=== PATIENT | male | born 1950 | race Caucasian/White ===

== ENCOUNTER 2016-11-20 10:45 | Day surgery (SDC) | payer MEDICARE, OTHER ==
[2016-11-18 13:25] VITALS: BMI 42.0
--- NOTE | 2016-11-20 08:06 | P.GSHP ---
History of Present Illness H&P Date: 11/20/16 CHIEF COMPLAINT: Colon screen HISTORY OF PRESENT ILLNESS: The patient is a 66-year-old male who presents for colon screen. Lower endoscopy was offered for further evaluation and management. PAST MEDICAL HISTORY: Please see list. PAST SURGICAL HISTORY: Please see list. MEDICATIONS: Please see list. ALLERGIES: Please see list. SOCIAL HISTORY: No illicit drug use FAMILY HISTORY: No reports of Crohn disease or ulcerative colitis. REVIEW OF ORGAN SYSTEMS: CONSTITUTIONAL: No reports of fevers or chills. PHYSICAL EXAM: VITAL SIGNS: Stable GENERAL: Well-developed pleasant in no acute distress. HEENT: No scleral icterus. Extraocular movements grossly intact. Moist buccal mucosa. NECK: Supple without lymphadenopathy. CHEST: Unlabored respirations. Equal bilateral excursions. CARDIOVASCULAR: Regular rate and rhythm. Distal 2+ pulses. ABDOMEN: Soft, nontender, nondistended. MUSCULOSKELETAL: No clubbing, cyanosis, or edema. ASSESSMENT: 1. Colon screen. PLAN: 1. Recommend proceeding with a lower endoscopy Past Medical History Past Medical History: Atrial Fibrillation, Heart Failure, COPD, GERD/Reflux, Hyperlipidemia, Hypertension, Respiratory Disorder Additional Past Medical History / Comment(s): , back pain History of Any Multi-Drug Resistant Organisms: None Reported Past Surgical History: AICD, Heart Catheterization Additional Past Surgical History / Comment(s): AICD/DEFIBILLATOR. PAIN CLINIC PROCEDURES Past Anesthesia/Blood Transfusion Reactions: No Reported Reaction Type of Cardiac Device: AICD Device Placement Date:: 06/17/2006 Past Psychological History: No Psychological Hx Reported Smoking Status: Current every day smoker Past Alcohol Use History: None Reported Additional Past Alcohol Use History / Comment(s): SMOKES 1 PPD SINCE AGE 16 Past Drug Use History: None Reported - Past Family History Mother Family Medical History: Unable to Obtain Father Family Medical History: CVA/TIA Medications and Allergies Home Medications Medication Instructions Recorded Confirmed Type Carvedilol [Coreg] 25 mg PO BID 11/02/13 11/18/16 History Digoxin [Lanoxin] 125 mcg PO DAILY 11/02/13 11/18/16 History Enalapril [Vasotec] 20 mg PO BID 11/02/13 11/18/16 History Furosemide [Lasix] 40 mg PO BID 11/02/13 11/18/16 History Ranitidine HCl [Zantac] 150 mg PO BID 11/02/13 11/18/16 History Simvastatin [Zocor] 40 mg PO HS 11/02/13 11/18/16 History Warfarin Sodium [Coumadin] 6 mg PO SUMOWETHSA 11/02/13 11/18/16 History amLODIPine [Norvasc] 10 mg PO DAILY 03/15/14 11/18/16 History Warfarin Sodium [Coumadin] 3 mg PO TUFR 07/15/14 11/18/16 History Allergies Allergy/AdvReac Type Severity Reaction Status Date / Time No Known Allergies Allergy Verified 11/18/16 13:15
[~2016-11-20 10:45] MED LIST: LACTATED RINGERS 1,000 ML IV SCH
[2016-11-20 12:06] VITALS: TEMP 98.7
[2016-11-20] MEDS ORDERED: LIDOCAINE 1% 20 ML VIAL (10MG/ML) FOR IV START INTRADERMA ONE (12:06)
[2016-11-20] MEDS ORDERED: LIDOCAINE 1% INJ 10MG/ML (20 ML MDV) ONE (14:04)
[2016-11-20] MEDS ORDERED: MIDAZOLAM 2 MG/2 ML VIAL ONE (14:04)
[2016-11-20] MEDS ORDERED: PROPOFOL 10 MG/ML 20 ML VIAL IV ONE (14:04)
[2016-11-20 15:08] VITALS: BP 147/87; PULSE 72; RESP 18
--- NOTE | 2016-11-20 19:01 | P.PCN ---
Date of Procedure: 11/20/16 Preoperative Diagnosis: Postoperative Diagnosis: Procedure(s) Performed: Implants: Indications for Procedure: Operative Findings: Description of Procedure: PREOPERATIVE DIAGNOSIS: 1. Colonoscopy screening. 2. Personal history of colon polyps. 3. Family history of colon polyps. 4. Morbid obesity due to excess calories. 5. Hypertensive heart disease with heart failure. 6. Body mass index 42.1. 7. Atrial fibrillation. 8. COPD. 9. Hyperlipidemia. POSTOPERATIVE DIAGNOSIS: 1. Colonoscopy screening. 2. Personal history of colon polyps. 3. Family history of colon polyps. 4. Morbid obesity due to excess calories. 5. Hypertensive heart disease with heart failure. 6. Body mass index 42.1. 7. Atrial fibrillation. 8. COPD. 9. Hyperlipidemia. 10. Diverticulosis, scattered. OPERATION: 1. Colonoscopy to the ileocecal valve and appendiceal orifice. 2. Colonoscopy with cold forceps biopsies along the ileocecal valve, transverse , and, sigmoid colon. SURGEON: Monserrat Espinosa MD. ANESTHESIA: MAC. INDICATIONS: The patient is a 66-year-old male who presents for colonoscopy screening. His last colonoscopy was over 5 years ago. Benefits and risks were described and informed consent was obtained. DESCRIPTION OF PROCEDURE: The patient had undergone Gatorade, MiraLAX and Dulcolax prep. He had been brought into the operating room and laid in the left lateral decubitus position. After adequate intravenous sedation, the rectum was examined with 2% lidocaine jelly. No external hemorrhoids were encountered. The rectal tone was within normal limits. The prostate was smooth and without abnormality. No lesions were palpated in the rectal vault. An Olympus colonoscope was advanced until the ileocecal valve and appendiceal orifice were clearly viewed. The prep was good with visualization of the mucosal folds. The scope was removed with visualization of each mucosal fold. Scattered diverticulosis was encountered. At the ileocecal valve, a 3 mm hyperplastic polyp was cold forceps biopsy to completion. At 90 cm from the anal verge of the transverse colon, a 4 mm polyp was cold forceps biopsy. Another polyp was identified 60 cm from the anal verge of 4-mm villous type cold forceps biopsy. At 20 cm from the anal verge, a 3 mm adenoma was cold forceps biopsied. No evidence of focal colitis was found. The colon was desufflated. The patient had tolerated the procedure well. Withdrawal time was over 6 minutes. FINDINGS: Internal hemorrhoids, grade 1 No external prolapsed hemorrhoids. No arteriovenous malformations. Scattered diverticulosis was encountered. Total of 4 polyps: -At the ileocecal valve, a 3 mm hyperplastic polyp was cold forceps biopsy to completion. -At 90 cm from the anal verge of the transverse colon, a 4 mm polyp was cold forceps biopsy. -Another polyp was identified 60 cm from the anal verge of 4-mm villous type cold forceps biopsy. -At 20 cm from the anal verge, a 3 mm adenoma was cold forceps biopsied. No focal colitis. RECOMMENDATIONS: Lower endoscopy in 3 years with personal history of colon polyps, year 2019. Plan - Discharge Summary Discharge Medication List Carvedilol [Coreg] 25 mg PO BID 11/02/13 [History] Digoxin [Lanoxin] 125 mcg PO DAILY 11/02/13 [History] Enalapril [Vasotec] 20 mg PO BID 11/02/13 [History] Furosemide [Lasix] 40 mg PO BID 11/02/13 [History] Ranitidine HCl [Zantac] 150 mg PO BID 11/02/13 [History] Simvastatin [Zocor] 40 mg PO HS 11/02/13 [History] Warfarin Sodium [Coumadin] 6 mg PO SUMOWETHSA 11/02/13 [History] amLODIPine [Norvasc] 10 mg PO DAILY 03/15/14 [History] Warfarin Sodium [Coumadin] 3 mg PO TUFR 07/15/14 [History] Follow up Appointment(s)/Referral(s): Monserrat Espinosa MD [STAFF PHYSICIAN] - 12/01/16 Patient Instructions/Handouts: *[facility] - (Anesthesia) Endoscopy Discharge Instructions, *[facility] - (Anesthesia) Discharge Instructions Outpatient Surgery, Colonoscopy (DC), Diverticulosis (DC), Diverticulosis (GEN), Colorectal Polyps (DC), Diverticulosis Diet (GEN) Activity/Diet/Wound Care/Special Instructions: REST TODAY , NO DRIVING TODAY.. RESUME HOME MEDS. Discharge Disposition: HOME SELF-CARE
== END 2016-11-20 15:31 | disposition home or self-care (01) ==
LOC: ORWHC2ENDO 10:45
PROVIDERS: ATTEND Surgery Plastic and Reconstructive Surgery
DX: Z12.11 Encounter for screening for malignant neoplasm of colon (principal); D12.3 Benign neoplasm of transverse colon; D12.6 Benign neoplasm of colon, unspecified; K57.30 Diverticulosis of large intestine without perforation or abscess without bleeding; Z86.010 Personal history of colon polyps; Z83.71 Family history of colonic polyps; F17.210 Nicotine dependence, cigarettes, uncomplicated; E66.01 Morbid (severe) obesity due to excess calories; Z68.41 Body mass index [BMI] 40.0-44.9, adult; K64.0 First degree hemorrhoids; I48.91 Unspecified atrial fibrillation; Z79.01 Long term (current) use of anticoagulants; J44.9 Chronic obstructive pulmonary disease, unspecified; K21.9 Gastro-esophageal reflux disease without esophagitis; E78.5 Hyperlipidemia, unspecified; I11.0 Hypertensive heart disease with heart failure; Z79.899 Other long term (current) drug therapy
CPT/HCPCS: 88305; 45380; J2250; J2001; J2704

== ENCOUNTER → 2017-10-22 | Outpatient (CLI) | payer MEDICARE, OTHER ==
--- NOTE | 2017-10-22 15:11 | US ---
EXAMINATION TYPE: US groin LT DATE OF EXAM: 10/22/2017 COMPARISON: CT renal stones May 20, 2015 CLINICAL HISTORY: K40.90 Unilateral Inguinal Hernia. Patient states lt groin pain when he coughs. Scanned left groin , area pointed out by patient, with and without valsalva. No evidence for hernia. Multiple nodes noted, largest measures 1.4 x 1.1 cm. Technologist maldonado benign-appearing lymph nodes left groin. No worrisome solid or cystic mass or flui d collection is seen. No suspicious hernia is evident on images saved. IMPRESSION: As above.
== END | disposition home or self-care (01) ==
LOC: RADUSWWP 14:23
PROVIDERS: ATTEND Family Medicine
DX: K40.90 Unilateral inguinal hernia, without obstruction or gangrene, not specified as recurrent (principal)

== ENCOUNTER → 2017-12-03 | Outpatient (CLI) | payer MEDICARE, OTHER ==
--- NOTE | 2017-12-03 12:35 | US ---
EXAMINATION TYPE: US scrotum with doppler. Grayscale and color Doppler Duplex imaging performed of t he scrotum. DATE OF EXAM: 12/03/2017 COMPARISON: NONE CLINICAL HISTORY: K40.90 Unilateral inguinal hernia. EXAM MEASUREMENTS: TESTICLES: Right Testicle: 3.5 x 2.1 x 2.8 cm Left Testicle: 3.5 x 2.1 x 2.3 cm EPIDIDYMIS HEAD: Right Epididymis: 0.7 cm Left Epididymis: 1.1 cm Doppler performed to assess for testicular vascularity; good bilateral color flow and waveforms are s een. There is no evidence of testicular torsion. Presence of hydroceles: Bilaterally Presence of varicoceles: No Cyst visualized right epididymis measuring 0.5 x 0.4 x 0.4 cm. Bilateral probable microlithiases visu alized. Echogenic area visualized lower left testicle measuring 0.2 x 0.3 x 0.2 cm IMPRESSION: 1. No sonographic evidence of inguinal hernia. 2. Bilateral microlithiasis. Additional subcentimeter hyperechoic focus within the left testicle may represent an additional focus of nonshadowing microlithiasis. This appears separate from the rete dwight dwight. Overall this is favored to be benign however follow-up exam could be performed in 6 months to en sure no interval growth.
== END | disposition home or self-care (01) ==
LOC: RADUSWWP 11:17
PROVIDERS: ATTEND Family Medicine
DX: N50.89 Other specified disorders of the male genital organs (principal)
CPT/HCPCS: 76870; 93975

== ENCOUNTER 2017-12-14 05:26 | Emergency (ER) | payer MEDICARE, OTHER ==
[2017-12-14 05:41] VITALS: TEMP 98.7
[2017-12-14] MEDS ORDERED: NITROGLYCERIN OINT 1 INCH/GM PACKET TOPICAL STA (06:12)
[2017-12-14] MEDS ORDERED: ASPIRIN 81 MG PO STA (06:12)
[2017-12-14] MEDS ORDERED: NITROGLYCERIN SL TABS 0.4 MG TAB SUBLINGUAL STA (06:12)
[2017-12-14 06:17] LABS: Basophils % (A) 0 %; Eosinophils # (A) 0.2 k/uL (0-0.7); Eosinophils % (A) 2 %; HCT 49.3 % (39.0-53.0); Lymphocytes # (A) 2.2 k/uL (1.0-4.8); Lymphocytes % (A) 28 %; MCH 29.9 pg (25.0-35.0); MCHC 32.5 g/dL (31.0-37.0); MCV 92.1 fL (80.0-100.0); Monocytes # (A) 0.7 k/uL (0-1.0); Monocytes % (A) 9 %; Neutrophils # (A) 4.7 k/uL (1.3-7.7); Neutrophils % (A) 60 %; Platelet Count 167 k/uL (150-450); RBC 5.35 m/uL (4.30-5.90); RDW 13.9 % (11.5-15.5); WBC 7.9 k/uL (3.8-10.6)
--- NOTE | 2017-12-14 06:17 | ED ---
SOB HPI - General Chief Complaint: Shortness of Breath Stated Complaint: Leg and feet swelling Time Seen by Provider: 12/14/17 06:12 Source: patient Mode of arrival: wheelchair Limitations: physical limitation (The patient is a poor historian) - History of Present Illness Initial Comments: This patient is 67-year-old man presenting to be evaluated for shortness of breath and bilateral leg edema that appears to be coming on and getting worse over the past 3 days. Patient is a relatively poor historian, not been able to give details of his history or medications. He is denying chest pain. MD Complaint: shortness of breath Onset/Timin -: days(s) Consistency: constant Improves With: nothing Worsens With: exertion - Related Data Home Medications Medication Instructions Recorded Confirmed Carvedilol [Coreg] 25 mg PO BID 11/02/13 11/20/16 Digoxin [Lanoxin] 125 mcg PO DAILY 11/02/13 11/20/16 Enalapril [Vasotec] 20 mg PO BID 11/02/13 11/20/16 Furosemide [Lasix] 40 mg PO BID 11/02/13 11/20/16 Ranitidine HCl [Zantac] 150 mg PO BID 11/02/13 11/20/16 Simvastatin [Zocor] 40 mg PO HS 11/02/13 11/20/16 Warfarin Sodium [Coumadin] 6 mg PO SUMOWETHSA 11/02/13 11/20/16 amLODIPine [Norvasc] 10 mg PO DAILY 03/15/14 11/20/16 Warfarin Sodium [Coumadin] 3 mg PO TUFR 07/15/14 11/20/16 Allergies Allergy/AdvReac Type Severity Reaction Status Date / Time No Known Allergies Allergy Verified 12/14/17 05:41 Review of Systems ROS Statement: Those systems with pertinent positive or pertinent negative responses have been documented in the HPI. ROS Other: All systems not noted in ROS Statement are negative. Limitations: ROS unobtainable due to patients medical condition (Poor historian) Constitutional: Denies: fever, chills Respiratory: Reports: cough, dyspnea. Denies: hemoptysis Cardiovascular: Reports: dyspnea on exertion, orthopnea, edema. Denies: chest pain, palpitations, syncope Gastrointestinal: Denies: abdominal pain, nausea, vomiting, diarrhea Genitourinary: Denies: dysuria Musculoskeletal: Denies: back pain Skin: Denies: rash Neurological: Denies: headache Past Medical History Past Medical History: Atrial Fibrillation, Heart Failure, COPD, GERD/Reflux, Hyperlipidemia, Hypertension, Respiratory Disorder Additional Past Medical History / Comment(s): , back pain History of Any Multi-Drug Resistant Organisms: None Reported Past Surgical History: AICD, Heart Catheterization Additional Past Surgical History / Comment(s): AICD/DEFIBILLATOR. PAIN CLINIC PROCEDURES Past Anesthesia/Blood Transfusion Reactions: No Reported Reaction Type of Cardiac Device: AICD Device Placement Date:: 06/17/2006 Past Psychological History: No Psychological Hx Reported Smoking Status: Current every day smoker Past Alcohol Use History: None Reported Past Drug Use History: None Reported - Past Family History Mother Family Medical History: Unable to Obtain Father Family Medical History: CVA/TIA General Exam Limitations: no limitations General appearance: alert, in distress, obese Head exam: Present: atraumatic, normocephalic Eye exam: Present: normal appearance. Absent: scleral icterus, conjunctival injection ENT exam: Present: normal oropharynx Neck exam: Present: normal inspection Respiratory exam: Present: respiratory distress (Mild tachypnea), rales ( Bilateral bases). Absent: wheezes, rhonchi, stridor, accessory muscle use, decreased breath sounds, prolonged expiratory Cardiovascular Exam: Present: regular rate, normal rhythm, normal heart sounds. Absent: systolic murmur, diastolic murmur, rubs, gallop GI/Abdominal exam: Present: soft. Absent: distended, tenderness, guarding, rebound Extremities exam: Present: normal inspection, normal capillary refill, pedal edema (Bilateral pitting edema to above the ankles). Absent: calf tenderness Back exam: Present: normal inspection. Absent: CVA tenderness (R), CVA tenderness (L) Neurological exam: Present: alert Skin exam: Present: warm, dry, intact, normal color. Absent: rash Course Vital Signs 12/14/17 12/14/17 12/14/17 05:39 05:41 06:21 Temperature 98.7 F Pulse Rate 79 70 Respiratory 18 18 18 Rate Blood Pressure 231/106 196/95 O2 Sat by Pulse 92 L 95 Oximetry 12/14/17 12/14/17 12/14/17 06:44 07:28 07:36 Temperature Pulse Rate 67 72 70 Respiratory 18 20 Rate Blood Pressure 190/96 168/90 O2 Sat by Pulse 97 98 Oximetry 12/14/17 07:37 Temperature Pulse Rate 68 Respiratory Rate Blood Pressure O2 Sat by Pulse Oximetry Medical Decision Making - Lab Data Result diagrams: 12/14/17 05:58 12/14/17 05:58 Lab Results 12/14/17 12/14/17 12/14/17 Range/Units 05:58 05:58 05:58 WBC 7.9 (3.8-10.6) k/uL RBC 5.35 (4.30-5.90) m/uL Hgb 16.0 (13.0-17.5) gm/dL Hct 49.3 (39.0-53.0) % MCV 92.1 (80.0-100.0) fL MCH 29.9 (25.0-35.0) pg MCHC 32.5 (31.0-37.0) g/dL RDW 13.9 (11.5-15.5) % Plt Count 167 (150-450) k/uL Neutrophils % 60 % Lymphocytes % 28 % Monocytes % 9 % Eosinophils % 2 % Basophils % 0 % Neutrophils # 4.7 (1.3-7.7) k/uL Lymphocytes # 2.2 (1.0-4.8) k/uL Monocytes # 0.7 (0-1.0) k/uL Eosinophils # 0.2 (0-0.7) k/uL Basophils # 0.0 (0-0.2) k/uL PT (9.0-12.0) sec INR (<1.2) APTT (22.0-30.0) sec D-Dimer (<0.60) mg/L FEU Sodium 146 H (137-145) mmol/L Potassium 4.2 (3.5-5.1) mmol/L Chloride 105 (98-107) mmol/L Carbon Dioxide 32 H (22-30) mmol/L Anion Gap 9 mmol/L BUN 13 (9-20) mg/dL Creatinine 0.71 (0.66-1.25) mg/dL Est GFR (CKD-EPI)AfAm >90 (>60 ml/min/1.73 sqM) Est GFR (CKD-EPI)NonAf >90 (>60 ml/min/1.73 sqM) Glucose 130 H (74-99) mg/dL Calcium 8.9 (8.4-10.2) mg/dL Total Bilirubin 0.7 (0.2-1.3) mg/dL AST 50 (17-59) U/L ALT 21 (21-72) U/L Alkaline Phosphatase 73 (38-126) U/L Total Creatine Kinase 55 (55-170) U/L CK-MB (CK-2) 0.5 (0.0-2.4) ng/mL CK-MB (CK-2) Rel Index 0.9 Troponin I 0.015 (0.000-0.034) ng/mL NT-Pro-B Natriuret Pep pg/mL Total Protein 6.4 (6.3-8.2) g/dL Albumin 3.8 (3.5-5.0) g/dL Digoxin ng/mL 12/14/17 12/14/17 12/14/17 Range/Units 05:58 05:58 05:58 WBC (3.8-10.6) k/uL RBC (4.30-5.90) m/uL Hgb (13.0-17.5) gm/dL Hct (39.0-53.0) % MCV (80.0-100.0) fL MCH (25.0-35.0) pg MCHC (31.0-37.0) g/dL RDW (11.5-15.5) % Plt Count (150-450) k/uL Neutrophils % % Lymphocytes % % Monocytes % % Eosinophils % % Basophils % % Neutrophils # (1.3-7.7) k/uL Lymphocytes # (1.0-4.8) k/uL Monocytes # (0-1.0) k/uL Eosinophils # (0-0.7) k/uL Basophils # (0-0.2) k/uL PT 20.7 H (9.0-12.0) sec INR 2.3 H (<1.2) APTT 28.2 (22.0-30.0) sec D-Dimer (<0.60) mg/L FEU Sodium (137-145) mmol/L Potassium (3.5-5.1) mmol/L Chloride (98-107) mmol/L Carbon Dioxide (22-30) mmol/L Anion Gap mmol/L BUN (9-20) mg/dL Creatinine (0.66-1.25) mg/dL Est GFR (CKD-EPI)AfAm (>60 ml/min/1.73 sqM) Est GFR (CKD-EPI)NonAf (>60 ml/min/1.73 sqM) Glucose (74-99) mg/dL Calcium (8.4-10.2) mg/dL Total Bilirubin (0.2-1.3) mg/dL AST (17-59) U/L ALT (21-72) U/L Alkaline Phosphatase (38-126) U/L Total Creatine Kinase (55-170) U/L CK-MB (CK-2) (0.0-2.4) ng/mL CK-MB (CK-2) Rel Index Troponin I (0.000-0.034) ng/mL NT-Pro-B Natriuret Pep 500 pg/mL Total Protein (6.3-8.2) g/dL Albumin (3.5-5.0) g/dL Digoxin <0.4 ng/mL 12/14/17 Range/Units 05:58 WBC (3.8-10.6) k/uL RBC (4.30-5.90) m/uL Hgb (13.0-17.5) gm/dL Hct (39.0-53.0) % MCV (80.0-100.0) fL MCH (25.0-35.0) pg MCHC (31.0-37.0) g/dL RDW (11.5-15.5) % Plt Count (150-450) k/uL Neutrophils % % Lymphocytes % % Monocytes % % Eosinophils % % Basophils % % Neutrophils # (1.3-7.7) k/uL Lymphocytes # (1.0-4.8) k/uL Monocytes # (0-1.0) k/uL Eosinophils # (0-0.7) k/uL Basophils # (0-0.2) k/uL PT (9.0-12.0) sec INR (<1.2) APTT (22.0-30.0) sec D-Dimer 0.24 (<0.60) mg/L FEU Sodium (137-145) mmol/L Potassium (3.5-5.1) mmol/L Chloride (98-107) mmol/L Carbon Dioxide (22-30) mmol/L Anion Gap mmol/L BUN (9-20) mg/dL Creatinine (0.66-1.25) mg/dL Est GFR (CKD-EPI)AfAm (>60 ml/min/1.73 sqM) Est GFR (CKD-EPI)NonAf (>60 ml/min/1.73 sqM) Glucose (74-99) mg/dL Calcium (8.4-10.2) mg/dL Total Bilirubin (0.2-1.3) mg/dL AST (17-59) U/L ALT (21-72) U/L Alkaline Phosphatase (38-126) U/L Total Creatine Kinase (55-170) U/L CK-MB (CK-2) (0.0-2.4) ng/mL CK-MB (CK-2) Rel Index Troponin I (0.000-0.034) ng/mL NT-Pro-B Natriuret Pep pg/mL Total Protein (6.3-8.2) g/dL Albumin (3.5-5.0) g/dL Digoxin ng/mL - EKG Data -: EKG Interpreted by Tn EKG shows normal: sinus rhythm, axis (Normal), intervals (QRS duration 102 ms, normal QTC 477 ms, normal MD interval 298 ms, prolonged consistent with first- degree AV block.), QRS complexes (Normal), ST-T waves (Normal) Rate: normal (Rate approximate 69 bpm) Disposition Clinical Impression: Acute exacerbation of chronic obstructive airways disease Disposition: Left Against Medical Advice Condition: Fair Is patient prescribed a controlled substance at d/c from ED?: No
[2017-12-14 06:28] LABS: ALT 21 U/L (21-72); AST 50 U/L (17-59); Albumin 3.8 g/dL (3.5-5.0); Alkaline Phosphatase 73 U/L (38-126); Anion Gap 9 mmol/L; Blood Urea Nitrogen 13 mg/dL (9-20); Calcium 8.9 mg/dL (8.4-10.2); Carbon Dioxide 32 mmol/L (22-30); Chloride 105 mmol/L (98-107); Glucose 130 mg/dL (74-99); Sodium 146 mmol/L (137-145); Total Bilirubin 0.7 mg/dL (0.2-1.3); Total Protein 6.4 g/dL (6.3-8.2)
[2017-12-14 06:32] LABS: Potassium 4.2 mmol/L (3.5-5.1)
[2017-12-14 06:51] LABS: Creatine Kinase MB 0.5 ng/mL (0.0-2.4); Troponin I 0.015 ng/mL (0.000-0.034)
[2017-12-14] MEDS ORDERED: FUROSEMIDE 10 MG/ML 4 ML VIAL IV STA (06:53)
[2017-12-14 06:58] LABS: INR 2.3 (<1.2); Partial Thromboplastin Time 28.2 sec (22.0-30.0); Prothrombin Time 20.7 sec (9.0-12.0)
[2017-12-14] MEDS ORDERED: ALBUTEROL NEBULIZED 2.5 MG/3 ML INHALATION STA (07:06)
--- NOTE | 2017-12-14 07:27 | XR ---
EXAM: XR Chest, 1 View CLINICAL HISTORY: ITS.REASON XR Reason: dyspnea TECHNIQUE: Frontal view of the chest. COMPARISON: Chest x-ray dated . FINDINGS: Limitations: Limited exam secondary to body habitus and/or technique. Lungs: Mild prominence of the perihilar and interstitial structures suspicious for mild edema. There is opacity behind the left heart border and along the left hemidiaphragm that may represent effusion, atelectasis, or pneumonia. Pleural space: Unremarkable. No pneumothorax. Heart: Severe cardiomegaly. Mediastinum: Unremarkable. Bones/joints: Unremarkable. Tubes, lines and devices: 2-lead AICD overlying the left chest wall. IMPRESSION: 1. Mild prominence of the perihilar and interstitial structures suspicious for mild edema. 2. There is opacity behind the left heart border and along the left hemidiaphragm that may represent effusion, atelectasis, or pneumonia.
[2017-12-14] MEDS ORDERED: IPRATROPIUM-ALBUTEROL 3 ML NEB INHALATION PRN (07:37)
[2017-12-14 07:38] VITALS: BP 168/90; RESP 20
[2017-12-14 07:40] VITALS: PULSE 68
[2017-12-14] MEDS ORDERED: ALBUTEROL NEBULIZED 2.5 MG/3 ML INHALATION SCH (08:00)
[2017-12-14] MEDS ORDERED: HEPARIN SODIUM,PORCINE 5,000 UNIT/ML 1 ML VIAL SQ SCH (08:00)
[2017-12-14] MEDS ORDERED: FAMOTIDINE 20 MG TAB PO SCH (09:00)
[2017-12-14] MEDS ORDERED: predniSONE 20 MG TAB PO SCH (09:00)
[2017-12-14] MEDS ORDERED: LISINOPRIL 20 MG TAB PO SCH (09:00)
[2017-12-14] MEDS ORDERED: CARVEDILOL 12.5 MG TAB PO SCH (09:00)
[2017-12-14] MEDS ORDERED: FUROSEMIDE 40 MG TAB PO SCH (09:00)
[2017-12-14] MEDS ORDERED: amLODIPine 10 MG TAB PO SCH (09:00)
[2017-12-14] MEDS ORDERED: DIGOXIN 125 MCG TAB PO SCH (09:00)
[2017-12-14] MEDS ORDERED: WARFARIN 3 MG TAB PO SCH (18:00)
[2017-12-14] MEDS ORDERED: ATORVASTATIN 20 MG TAB PO SCH (21:00)
[2017-12-15] MEDS ORDERED: WARFARIN 3 MG TAB PO SCH (18:00)
== END 2017-12-14 08:19 | disposition left against medical advice (07) ==
LOC: EC 05:26 → UNDOADMIN 07:37 → 6SEL 07:37 → UNDODISIN 08:15 → EC 08:19
DX: J44.1 Chronic obstructive pulmonary disease with (acute) exacerbation (principal); I48.91 Unspecified atrial fibrillation; E78.5 Hyperlipidemia, unspecified; I11.0 Hypertensive heart disease with heart failure; I50.9 Heart failure, unspecified; K21.9 Gastro-esophageal reflux disease without esophagitis; F17.200 Nicotine dependence, unspecified, uncomplicated; Z79.01 Long term (current) use of anticoagulants; Z79.899 Other long term (current) drug therapy
CPT/HCPCS: 99285; 96374; 36415; 94640; 93005; 85379; 83880; 80053; 82550; 82553; 80162; 84484; 85025; 85610; 85730; 71045; J1940

== ENCOUNTER 2018-01-08 15:50 | Inpatient (IN) | payer MEDICARE, OTHER ==
--- NOTE | 2018-01-08 16:47 | ED ---
General Adult HPI - General Source: patient, RN notes reviewed Mode of arrival: ambulatory Limitations: no limitations <Daniel Stone - Last Filed: 01/08/18 16:52> <Franco Benitez - Last Filed: 01/08/18 19:28> - General Chief complaint: Recheck/Abnormal Lab/Rx Stated complaint: fluid retention Time Seen by Provider: 01/08/18 16:29 - History of Present Illness Initial comments: Patient is a pleasant 67-year-old male presenting to the emergency department with concerns regarding leg edema and weeping. Symptoms have progressed over the past several weeks. Patient has had leg edema previously however this is worse than normal. Patient does admit to some exertional dyspnea. Patient states this is chronic related to CHF. Patient has noticed some redness of his legs, especially the left leg. No leg pain. Patient states drainage has been clear or yellow. (Daniel Stone) - Related Data Home Medications Medication Instructions Recorded Confirmed Carvedilol [Coreg] 25 mg PO Q8H 11/02/13 01/08/18 Digoxin [Lanoxin] 125 mcg PO DAILY 11/02/13 01/08/18 Enalapril [Vasotec] 20 mg PO BID 11/02/13 01/08/18 Furosemide [Lasix] 40 mg PO BID 11/02/13 01/08/18 Ranitidine HCl [Zantac] 150 mg PO BID 11/02/13 01/08/18 Simvastatin [Zocor] 40 mg PO HS 11/02/13 01/08/18 Warfarin Sodium [Coumadin] 6 mg PO SUMOWETHFR 11/02/13 01/08/18 amLODIPine [Norvasc] 10 mg PO DAILY 03/15/14 01/08/18 Warfarin Sodium [Coumadin] 3 mg PO TUSA 07/15/14 01/08/18 Potassium Chloride [Klor-Con 8] 8 meq PO DAILY 01/08/18 01/08/18 Spironolactone [Aldactone] 50 mg PO DAILY 01/08/18 01/08/18 Allergies Allergy/AdvReac Type Severity Reaction Status Date / Time No Known Allergies Allergy Verified 01/08/18 16:53 Review of Systems ROS Other: All systems not noted in ROS Statement are negative. Constitutional: Denies: fever Eyes: Denies: eye pain ENT: Denies: ear pain Respiratory: Reports: dyspnea (With exertion which is chronic). Denies: cough Cardiovascular: Denies: chest pain Endocrine: Denies: fatigue Gastrointestinal: Denies: abdominal pain Genitourinary: Denies: dysuria Musculoskeletal: Denies: back pain Skin: Reports: rash Neurological: Denies: weakness <Daniel Stone - Last Filed: 01/08/18 16:52> ROS Other: All systems not noted in ROS Statement are negative. <Franco Benitez - Last Filed: 01/08/18 19:28> ROS Statement: Those systems with pertinent positive or pertinent negative responses have been documented in the HPI. Past Medical History Past Medical History: Atrial Fibrillation, Heart Failure, COPD, GERD/Reflux, Hyperlipidemia, Hypertension, Respiratory Disorder Additional Past Medical History / Comment(s): back pain, swollen legs History of Any Multi-Drug Resistant Organisms: None Reported Past Surgical History: AICD, Heart Catheterization Additional Past Surgical History / Comment(s): AICD/DEFIBILLATOR. PAIN CLINIC PROCEDURES Past Anesthesia/Blood Transfusion Reactions: No Reported Reaction Type of Cardiac Device: AICD Device Placement Date:: 06/17/2006 Past Psychological History: No Psychological Hx Reported Smoking Status: Current every day smoker Past Alcohol Use History: None Reported Past Drug Use History: None Reported - Past Family History Mother Family Medical History: Unable to Obtain Father Family Medical History: CVA/TIA <Daniel Stone Last Filed: 01/08/18 16:52> General Exam Limitations: no limitations General appearance: alert, in no apparent distress, obese Head exam: Present: atraumatic Eye exam: Present: normal appearance, PERRL ENT exam: Present: normal oropharynx Neck exam: Present: normal inspection Respiratory exam: Present: rales Cardiovascular Exam: Present: regular rate, normal rhythm GI/Abdominal exam: Present: soft. Absent: tenderness Extremities exam: Present: pedal edema (+3 bilaterally). Absent: calf tenderness Neurological exam: Present: alert Psychiatric exam: Present: normal affect, normal mood Skin exam: Present: rash (Left side greater than right leg erythema and warmth extending from the foot to below the knee. There is bilateral edema. There is several vesicles with some drainage.) <Daniel Stone - Last Filed: 01/08/18 16:52> Vital Signs 01/08/18 01/08/18 15:58 18:36 Temperature 98.6 F Pulse Rate 73 61 Respiratory 20 20 Rate Blood Pressure 183/100 169/119 O2 Sat by Pulse 93 L 95 Oximetry EKG Findings - EKG Comments: EKG Findings:: Sinus rhythm at 68. First-degree AV block IN of 334. QRS 98. QT 418. QTC 444. Normal axis. Normal QRS. No acute ST change. <Daniel Stone - Last Filed: 01/08/18 16:52> Medical Decision Making <Daniel Stone - Last Filed: 01/08/18 16:52> - Lab Data Result diagrams: 01/08/18 17:11 01/08/18 16:00 - Radiology Data Radiology results: report reviewed (I did review the imaging and report or is some evidence of congestive changes.), image reviewed <Franco Benitez - Last Filed: 01/08/18 19:28> - Medical Decision Making I did discuss findings with patient and with Dr. Lobato. Patient be admitted place an IV antibiotics as well as diuretics. The presentation consistent with sialitis or lower extremities with congestive changes. (Franco Benitez) - Lab Data Lab Results 01/08/18 01/08/18 01/08/18 Range/Units 16:00 16:00 16:00 WBC (3.8-10.6) k/uL RBC (4.30-5.90) m/uL Hgb (13.0-17.5) gm/dL Hct (39.0-53.0) % MCV (80.0-100.0) fL MCH (25.0-35.0) pg MCHC (31.0-37.0) g/dL RDW (11.5-15.5) % Plt Count (150-450) k/uL Neutrophils % % Lymphocytes % % Monocytes % % Eosinophils % % Basophils % % Neutrophils # (1.3-7.7) k/uL Lymphocytes # (1.0-4.8) k/uL Monocytes # (0-1.0) k/uL Eosinophils # (0-0.7) k/uL Basophils # (0-0.2) k/uL PT 18.3 H (9.0-12.0) sec INR 2.0 H (<1.2) APTT 32.9 H (22.0-30.0) sec Sodium 145 (137-145) mmol/L Potassium 4.4 (3.5-5.1) mmol/L Chloride 107 (98-107) mmol/L Carbon Dioxide 32 H (22-30) mmol/L Anion Gap 6 mmol/L BUN 17 (9-20) mg/dL Creatinine 0.80 (0.66-1.25) mg/dL Est GFR (CKD-EPI)AfAm >90 (>60 ml/min/1.73 sqM) Est GFR (CKD-EPI)NonAf >90 (>60 ml/min/1.73 sqM) Glucose 111 H (74-99) mg/dL Plasma Lactic Acid Royce (0.7-2.0) mmol/L Calcium 8.9 (8.4-10.2) mg/dL Total Bilirubin 0.4 (0.2-1.3) mg/dL AST 143 H (17-59) U/L ALT 70 (21-72) U/L Alkaline Phosphatase 132 H (38-126) U/L Total Creatine Kinase (55-170) U/L CK-MB (CK-2) (0.0-2.4) ng/mL CK-MB (CK-2) Rel Index Troponin I (0.000-0.034) ng/mL NT-Pro-B Natriuret Pep 752 pg/mL Total Protein 6.2 L (6.3-8.2) g/dL Albumin 3.8 (3.5-5.0) g/dL 01/08/18 01/08/18 01/08/18 Range/Units 17:11 17:11 17:11 WBC 8.1 (3.8-10.6) k/uL RBC 5.11 (4.30-5.90) m/uL Hgb 15.5 (13.0-17.5) gm/dL Hct 47.2 (39.0-53.0) % MCV 92.3 (80.0-100.0) fL MCH 30.2 (25.0-35.0) pg MCHC 32.8 (31.0-37.0) g/dL RDW 14.4 (11.5-15.5) % Plt Count 182 (150-450) k/uL Neutrophils % 61 % Lymphocytes % 27 % Monocytes % 8 % Eosinophils % 2 % Basophils % 0 % Neutrophils # 5.0 (1.3-7.7) k/uL Lymphocytes # 2.2 (1.0-4.8) k/uL Monocytes # 0.6 (0-1.0) k/uL Eosinophils # 0.2 (0-0.7) k/uL Basophils # 0.0 (0-0.2) k/uL PT (9.0-12.0) sec INR (<1.2) APTT (22.0-30.0) sec Sodium (137-145) mmol/L Potassium (3.5-5.1) mmol/L Chloride (98-107) mmol/L Carbon Dioxide (22-30) mmol/L Anion Gap mmol/L BUN (9-20) mg/dL Creatinine (0.66-1.25) mg/dL Est GFR (CKD-EPI)AfAm (>60 ml/min/1.73 sqM) Est GFR (CKD-EPI)NonAf (>60 ml/min/1.73 sqM) Glucose (74-99) mg/dL Plasma Lactic Acid Royce 1.0 (0.7-2.0) mmol/L Calcium (8.4-10.2) mg/dL Total Bilirubin (0.2-1.3) mg/dL AST (17-59) U/L ALT (21-72) U/L Alkaline Phosphatase (38-126) U/L Total Creatine Kinase 42 L (55-170) U/L CK-MB (CK-2) 0.4 (0.0-2.4) ng/mL CK-MB (CK-2) Rel Index 1.0 Troponin I <0.012 (0.000-0.034) ng/mL NT-Pro-B Natriuret Pep pg/mL Total Protein (6.3-8.2) g/dL Albumin (3.5-5.0) g/dL Disposition <Daniel Stone - Last Filed: 01/08/18 16:52> <Franco Benitez - Last Filed: 01/08/18 19:28> Clinical Impression: Cellulitis of left leg, Congestive heart failure, Edema Disposition: ADMITTED IP TO THIS [facility] Condition: Stable Referrals: Kishan Drake DO [Primary Care Provider] - 1-2 days
--- NOTE | 2018-01-08 17:11 | XR ---
EXAMINATION TYPE: XR chest 2V DATE OF EXAM: 01/08/2018 COMPARISON: Chest x-ray December 14, 2017. HISTORY: History of CHF with difficulty in breathing. TECHNIQUE: Frontal and lateral views of the chest are obtained. FINDINGS: There is chronic emphysematous change without focal air space opacity or pneumothorax seen . The cardiac silhouette size remains enlarged with small to tiny bilateral pleural effusions seen o n lateral view as there is blunting of posterior costophrenic angles. Dual-lead pacemaker/AICD is id entified. Mild to moderate multilevel spurring in thoracic spine is present. IMPRESSION: Suspect CHF exacerbation as there is cardiomegaly with new small to tiny bilateral pleur al effusions on background of chronic emphysematous change. Correlate clinically.
[2018-01-08 17:24] LABS: Basophils % (A) 0 %; Eosinophils # (A) 0.2 k/uL (0-0.7); Eosinophils % (A) 2 %; HCT 47.2 % (39.0-53.0); HGB 15.5 gm/dL (13.0-17.5); Lymphocytes # (A) 2.2 k/uL (1.0-4.8); Lymphocytes % (A) 27 %; MCH 30.2 pg (25.0-35.0); MCHC 32.8 g/dL (31.0-37.0); MCV 92.3 fL (80.0-100.0); Mean Platelet Volume 7.1; Monocytes # (A) 0.6 k/uL (0-1.0); Monocytes % (A) 8 %; Neutrophils % (A) 61 %; Platelet Count 182 k/uL (150-450); RBC 5.11 m/uL (4.30-5.90); RDW 14.4 % (11.5-15.5); WBC 8.1 k/uL (3.8-10.6)
[2018-01-08 17:34] LABS: Creatine Kinase 42 U/L (55-170)
[2018-01-08 17:36] LABS: ALT 70 U/L (21-72); AST 143 U/L (17-59); Albumin 3.8 g/dL (3.5-5.0); Alkaline Phosphatase 132 U/L (38-126); Anion Gap 6 mmol/L; Blood Urea Nitrogen 17 mg/dL (9-20); Calcium 8.9 mg/dL (8.4-10.2); Carbon Dioxide 32 mmol/L (22-30); Chloride 107 mmol/L (98-107); Glucose 111 mg/dL (74-99); Partial Thromboplastin Time 32.9 sec (22.0-30.0); Potassium 4.4 mmol/L (3.5-5.1); Prothrombin Time 18.3 sec (9.0-12.0); Sodium 145 mmol/L (137-145); Total Bilirubin 0.4 mg/dL (0.2-1.3); Total Protein 6.2 g/dL (6.3-8.2)
[2018-01-08 17:46] LABS: Creatine Kinase MB 0.4 ng/mL (0.0-2.4); Troponin I <0.012 ng/mL (0.000-0.034)
[2018-01-08] MEDS ORDERED: ONDANSETRON 4 MG/2 ML VIAL IVP PRN (19:29)
[2018-01-08] MEDS ORDERED: NALOXONE 0.4 MG/ML 1 ML VIAL IV PRN (19:29)
[2018-01-08] MEDS ORDERED: FUROSEMIDE 10 MG/ML 4 ML VIAL IV STA (19:32)
[2018-01-08] MEDS ORDERED: PIPERACILLIN-TAZOBACTAM 3.375 GM in DEXTROSE/WATER 1 50ML.BAG IVPB STA (19:35)
[2018-01-08] MEDS ORDERED: VANCOMYCIN IV PER PHARMACY 1 EACH MISC MISCELLANE PRN (19:35)
[2018-01-08] MEDS ORDERED: WARFARIN 3 MG TAB PO SCH (19:45)
[2018-01-08] MEDS: SODIUM CHLORIDE 0.9% 1,000 ML IV SCH (19:51)
[2018-01-08] MEDS ORDERED: ENALAPRILAT 1.25 MG/ML 1 ML VIAL IVP STA (20:12)
--- NOTE | 2018-01-08 20:13 | ED ---
Medical Decision Making - Lab Data Result diagrams: 01/08/18 17:11 01/08/18 16:00 Lab Results 01/08/18 01/08/18 01/08/18 Range/Units 16:00 16:00 16:00 WBC (3.8-10.6) k/uL RBC (4.30-5.90) m/uL Hgb (13.0-17.5) gm/dL Hct (39.0-53.0) % MCV (80.0-100.0) fL MCH (25.0-35.0) pg MCHC (31.0-37.0) g/dL RDW (11.5-15.5) % Plt Count (150-450) k/uL Neutrophils % % Lymphocytes % % Monocytes % % Eosinophils % % Basophils % % Neutrophils # (1.3-7.7) k/uL Lymphocytes # (1.0-4.8) k/uL Monocytes # (0-1.0) k/uL Eosinophils # (0-0.7) k/uL Basophils # (0-0.2) k/uL PT 18.3 H (9.0-12.0) sec INR 2.0 H (<1.2) APTT 32.9 H (22.0-30.0) sec Sodium 145 (137-145) mmol/L Potassium 4.4 (3.5-5.1) mmol/L Chloride 107 (98-107) mmol/L Carbon Dioxide 32 H (22-30) mmol/L Anion Gap 6 mmol/L BUN 17 (9-20) mg/dL Creatinine 0.80 (0.66-1.25) mg/dL Est GFR (CKD-EPI)AfAm >90 (>60 ml/min/1.73 sqM) Est GFR (CKD-EPI)NonAf >90 (>60 ml/min/1.73 sqM) Glucose 111 H (74-99) mg/dL Plasma Lactic Acid Royce (0.7-2.0) mmol/L Calcium 8.9 (8.4-10.2) mg/dL Total Bilirubin 0.4 (0.2-1.3) mg/dL AST 143 H (17-59) U/L ALT 70 (21-72) U/L Alkaline Phosphatase 132 H (38-126) U/L Total Creatine Kinase (55-170) U/L CK-MB (CK-2) (0.0-2.4) ng/mL CK-MB (CK-2) Rel Index Troponin I (0.000-0.034) ng/mL NT-Pro-B Natriuret Pep 752 pg/mL Total Protein 6.2 L (6.3-8.2) g/dL Albumin 3.8 (3.5-5.0) g/dL 01/08/18 01/08/18 01/08/18 Range/Units 17:11 17:11 17:11 WBC 8.1 (3.8-10.6) k/uL RBC 5.11 (4.30-5.90) m/uL Hgb 15.5 (13.0-17.5) gm/dL Hct 47.2 (39.0-53.0) % MCV 92.3 (80.0-100.0) fL MCH 30.2 (25.0-35.0) pg MCHC 32.8 (31.0-37.0) g/dL RDW 14.4 (11.5-15.5) % Plt Count 182 (150-450) k/uL Neutrophils % 61 % Lymphocytes % 27 % Monocytes % 8 % Eosinophils % 2 % Basophils % 0 % Neutrophils # 5.0 (1.3-7.7) k/uL Lymphocytes # 2.2 (1.0-4.8) k/uL Monocytes # 0.6 (0-1.0) k/uL Eosinophils # 0.2 (0-0.7) k/uL Basophils # 0.0 (0-0.2) k/uL PT (9.0-12.0) sec INR (<1.2) APTT (22.0-30.0) sec Sodium (137-145) mmol/L Potassium (3.5-5.1) mmol/L Chloride (98-107) mmol/L Carbon Dioxide (22-30) mmol/L Anion Gap mmol/L BUN (9-20) mg/dL Creatinine (0.66-1.25) mg/dL Est GFR (CKD-EPI)AfAm (>60 ml/min/1.73 sqM) Est GFR (CKD-EPI)NonAf (>60 ml/min/1.73 sqM) Glucose (74-99) mg/dL Plasma Lactic Acid Royce 1.0 (0.7-2.0) mmol/L Calcium (8.4-10.2) mg/dL Total Bilirubin (0.2-1.3) mg/dL AST (17-59) U/L ALT (21-72) U/L Alkaline Phosphatase (38-126) U/L Total Creatine Kinase 42 L (55-170) U/L CK-MB (CK-2) 0.4 (0.0-2.4) ng/mL CK-MB (CK-2) Rel Index 1.0 Troponin I <0.012 (0.000-0.034) ng/mL NT-Pro-B Natriuret Pep pg/mL Total Protein (6.3-8.2) g/dL Albumin (3.5-5.0) g/dL Disposition Clinical Impression: Cellulitis of left leg, Congestive heart failure, Edema, Hypertension Disposition: ADMITTED IP TO THIS HOSP Condition: Stable
[2018-01-08] MEDS ORDERED: FUROSEMIDE 10 MG/ML 4 ML VIAL IV SCH (21:00)
[2018-01-08] MEDS ORDERED: FUROSEMIDE 40 MG TAB PO SCH (21:00)
[2018-01-08 21:38] VITALS: BMI 47.2
[2018-01-08] MEDS: FAMOTIDINE 20 MG TAB PO SCH (21:41)
[2018-01-08] MEDS: ATORVASTATIN 20 MG TAB PO SCH (21:42)
[2018-01-08] MEDS: LISINOPRIL 20 MG TAB PO SCH (21:42)
[2018-01-08] MEDS: CARVEDILOL 12.5 MG TAB PO SCH (21:42)
[2018-01-08] MEDS: IPRATROPIUM-ALBUTEROL 3 ML NEB INHALATION SCH ×2 (22:28→22:57)
[2018-01-08] MEDS: VANCOMYCIN 2,250 MG in SODIUM CHLORIDE 0.9% 500 ML IVPB ONE (22:50)
[2018-01-08] MEDS: FUROSEMIDE 250 MG in SODIUM CHLORIDE 0.9% 225 ML IVP SCH (23:11)
[2018-01-08] MEDS: NICOTINE 21MG/24HR PATCH TRANSDERM SCH (23:14)
--- NOTE | 2018-01-08 23:28 | HP ---
HISTORY AND PHYSICAL DATE OF SERVICE: 01/08/2018. DATE OF SERVICE: 01/08/2018. PRESENT COMPLAINT: Short of breath, leg edema. HISTORY OF PRESENTING COMPLAINT: This is a 67-year-old patient who follows with Dr. Drake. Chronic stable medical conditions include hypertension, atrial fibrillation, hyperlipidemia, chronic low back pain, has an AICD. The patient has been getting progressively increasing swelling of lower extremity, abdominal distention, shortness of breath. Has got a cough, some clear phlegm. Denies any fever. Appetite is good. Bowels are fair. No fever and chills. The patient has gross edema and some superficial breakdown of skin, oozing from there. The patient's BNP in the ER was found to be 752. Clinical picture was since compatible with CHF. IV Lasix was given. The patient is quite a bit short of breath, sitting at the edge of the bed. Denies any fever or chills. REVIEW OF SYSTEMS: CONSTITUTIONAL: Tired. HEENT: None. RESPIRATORY: As above. CARDIOVASCULAR: As above. No chest pain. GASTROINTESTINAL: None. GENITOURINARY: None. MUSCULOSKELETAL: Arthritic pain in joints. DERMATOLOGICAL: Superficial breakdown of skin of lower extremities. HEMATOLOGIC: None. LYMPHATIC: None. PSYCHIATRY: A bit anxious. NEUROLOGICAL: None. PAST MEDICAL HISTORY: Congestive heart failure, hypertension, atrial fibrillation, COPD, hyperlipidemia, back pain, AICD. PAST SURGICAL HISTORY: AICD, cardiac catheterization, pain clinic procedures. SOCIAL HISTORY: The patient smokes a pack a day over 50 years. No alcohol. FAMILY HISTORY: Not relevant to presentation. HOME MEDICATIONS: 1. Zocor 40 mg q.h.s. 2. Coumadin 6 mg on Wednesday, Wednesday, Wednesday, , Wednesday. 3. Zantac 150 mg b.i.d. 4. Coreg 25 p.o. q.8h. 5. Coumadin 3 mg on Wednesday and Wednesday. 6. Amlodipine 10 mg p.o. daily. 7. Vasotec 20 mg b.i.d. 8. Digoxin 125 mcg a day. 9. Aldactone 50 mg p.o. daily. 10.Lasix 40 mg b.i.d. 11.Potassium 8 mEq p.o. daily. ALLERGIES: None. EXAMINATION: VITAL SIGNS: On presentation, temperature 98.6, pulse 73, respirations 20, blood pressure 183/100, pulse ox 93% on room air. GENERAL APPEARANCE: Well-built, BMI of 47.3, sitting on the edge of bed, short of breath. EYES: Pupils equal. Conjunctivae normal. HEENT: External nose and ears normal. Oral cavity normal. NECK: JVD unable to assess. Mass not palpable. RESPIRATORY: Effort increased. LUNGS: Diminished breath sounds. Prolonged expiration, wheezing. CARDIOVASCULAR: Heart sounds muffled. Gross edema present. ABDOMEN: Distended, soft. Liver, spleen not palpable. LYMPHATIC: No lymph node palpable in neck or axillae. PSYCHIATRY: Alert and oriented x3. Mood and affect anxious-appearing. NEUROLOGICAL: Pupils equal. Cranial nerves grossly intact. Power and sensation grossly intact. DERMATOLOGICAL: Superficial blisters, breakdown, lower extremity. INVESTIGATIONS: White count 8.1, hemoglobin 15.5. Potassium 4.4, BUN 17, creatinine 0.80. ProBNP is 752. Troponin less than 0.012. EKG: Normal sinus rhythm. Chest x-ray: Cardiomegaly, small left pleural effusion, some venous prominence. ASSESSMENT: 1. This is a patient who presented with progressive swelling of the legs, increasing shortness of breath, who continues to smoke. Given that the BNP is only 752, I still think patient may have an element of left-sided failure, based on the chest x- ray that is congestive heart failure exacerbation. Also, patient may be having cor pulmonale, given a longstanding smoker. In either case, will go ahead and put the patient on Lasix drip, as patient is quite a bit short of breath and to do strict I's and O's. 2. Acute chronic obstructive pulmonary disease exacerbation in a current smoker. 3. Chronic nicotine dependence. Patient is a cigarette smoker. 4. Automatic implantable cardioverter-defibrillator in place. 5. Hyperlipidemia. 6. Paroxysmal atrial fibrillation, currently on currently in sinus rhythm. 7. Coumadin monitoring. The patient is on Coumadin for atrial fibrillation. 8. Essential hypertension. 9. Morbid obesity, BMI 47.3. PLAN: Patient will be put on Lasix drip, strict I's and O's, fluid restriction 1500 mL a day. We will check patient's 2D echocardiogram. The patient will be put on nebulized bronchodilators, nebulized steroids. Consultation to both cardiology and pulmonary is being done. MMODL / IJN: [id number] /
[2018-01-09 00:06] LABS: Anion Gap 5 mmol/L; Blood Urea Nitrogen 17 mg/dL (9-20); Calcium 8.4 mg/dL (8.4-10.2); Carbon Dioxide 30 mmol/L (22-30); Chloride 107 mmol/L (98-107); Glucose 186 mg/dL (74-99); Magnesium 1.9 mg/dL (1.6-2.3); Potassium 3.9 mmol/L (3.5-5.1); Sodium 142 mmol/L (137-145)
[2018-01-09] MEDS ORDERED: Magnesium Replacement Protocol 1 EACH MISC MISCELLANE PRN (00:22)
[2018-01-09] MEDS: MAGNESIUM SULFATE-D5W PMX 1 GM in DEXTROSE/WATER 1 100ML.BAG IVPB SCH ×2 (01:16→01:59)
[2018-01-09] MEDS: VANCOMYCIN 2,250 MG in SODIUM CHLORIDE 0.9% 500 ML IVPB ONE (02:05)
[2018-01-09] MEDS: IPRATROPIUM-ALBUTEROL 3 ML NEB INHALATION SCH ×5 (03:36→20:09)
[2018-01-09] MEDS: CARVEDILOL 12.5 MG TAB PO SCH ×3 (05:57→18:16)
[2018-01-09] MEDS: PIPERACILLIN-TAZOBACTAM 3.375 GM in DEXTROSE/WATER 1 50ML.BAG IVPB SCH ×3 (06:01→20:19)
[2018-01-09 07:45] LABS: INR 2.1 (<1.2); Prothrombin Time 18.9 sec (9.0-12.0)
[2018-01-09 07:47] LABS: Anion Gap 7 mmol/L; Blood Urea Nitrogen 15 mg/dL (9-20); Calcium 8.1 mg/dL (8.4-10.2); Carbon Dioxide 31 mmol/L (22-30); Chloride 105 mmol/L (98-107); Glucose 129 mg/dL (74-99); Potassium 3.6 mmol/L (3.5-5.1); Sodium 143 mmol/L (137-145)
[2018-01-09] MEDS: NICOTINE 21MG/24HR PATCH TRANSDERM SCH (08:34)
[2018-01-09] MEDS: DIGOXIN 125 MCG TAB PO SCH (08:34)
[2018-01-09] MEDS: amLODIPine 10 MG TAB PO SCH (08:34)
[2018-01-09] MEDS: LISINOPRIL 20 MG TAB PO SCH ×2 (08:34→20:22)
[2018-01-09] MEDS: BUDESONIDE 1 MG/2 ML NEBU INHALATION SCH ×2 (08:35→20:09)
[2018-01-09] MEDS: POTASSIUM CHLORIDE ER 10 MEQ TAB.ER.PRT PO SCH (08:35)
[2018-01-09] MEDS: SPIRONOLACTONE 25 MG TAB PO SCH (08:35)
[2018-01-09] MEDS: FAMOTIDINE 20 MG TAB PO SCH ×2 (08:36→20:22)
[2018-01-09] MEDS ORDERED: PANTOPRAZOLE 40 MG/10 ML VIAL IV SCH (09:00)
--- NOTE | 2018-01-09 10:33 | P.CNPUL ---
History of Present Illness Consult date: 01/09/18 Chief complaint: Lower extremity edema and cellulitis History of present illness: Morbidly obese 67-year-old male patient with known history of cardiomyopathy and chronic atrial fibrillation COPD with an FEV1 of 47% of predicted. The patient has been progressively getting worsening edema in lower oximetry is bilaterally. He has developed extensive edema with fluid seeping from the skin surface and superimposed infection as the patient's skin is broken erythematous red and hot and warm consistent with cellulitis. The patient was started on Lasix drip by medicine. The patient is also on vancomycin. He is not having any significant shortness of [id number] chest pain. No cough or sputum production. No altered mentation. This morning he is responding to diuretics and the patient is producing adequate amount of urine output it is fully anticoagulated with warfarin with an INR of 2.1. Renal function is stable with a creatinine of 0.7. BNP is 752. He takes Lasix on outpatient basis at a dose of 40 mg by mouth twice a day. No previous history of DVT of the lower extremities. Review of Systems 12 point review of system was done. social symptoms other than weight gain and increased lower extremity edema. No altered mentation. No chest pain. Chronic dyspnea which is unchanged at this point in time. Worsening lower extremity edema and Celexa of the legs. No active arthritis. No altered mentation. Past Medical History Past Medical History: Atrial Fibrillation, Heart Failure, COPD, GERD/Reflux, Hyperlipidemia, Hypertension, Respiratory Disorder Additional Past Medical History / Comment(s): Cardiomyopathy with a previous AICD placement, COPD, hypertension, deafness, psoriasis, history of abdominal aortic aneurysm, chronic pain with insertion of a spinal cord stimulator, hypertension, hyperlipidemia History of Any Multi-Drug Resistant Organisms: None Reported Past Surgical History: AICD, Heart Catheterization Additional Past Surgical History / Comment(s): AICD/DEFIBILLATOR. PAIN CLINIC PROCEDURES Past Anesthesia/Blood Transfusion Reactions: No Reported Reaction Type of Cardiac Device: AICD Device Placement Date:: 06/17/2006 Past Psychological History: No Psychological Hx Reported Smoking Status: Current every day smoker Past Alcohol Use History: None Reported Additional Past Alcohol Use History / Comment(s): SMOKES 1 PPD SINCE AGE 16 Past Drug Use History: None Reported - Past Family History Mother Family Medical History: Unable to Obtain Father Family Medical History: CVA/TIA Medications and Allergies Home Medications Medication Instructions Recorded Confirmed Type Carvedilol [Coreg] 25 mg PO Q8H 11/02/13 01/08/18 History Digoxin [Lanoxin] 125 mcg PO DAILY 11/02/13 01/08/18 History Enalapril [Vasotec] 20 mg PO BID 11/02/13 01/08/18 History Furosemide [Lasix] 40 mg PO BID 11/02/13 01/08/18 History Ranitidine HCl [Zantac] 150 mg PO BID 11/02/13 01/08/18 History Simvastatin [Zocor] 40 mg PO HS 11/02/13 01/08/18 History Warfarin Sodium [Coumadin] 6 mg PO SUMOWETHFR 11/02/13 01/08/18 History amLODIPine [Norvasc] 10 mg PO DAILY 03/15/14 01/08/18 History Warfarin Sodium [Coumadin] 3 mg PO TUSA 07/15/14 01/08/18 History Potassium Chloride [Klor-Con 8] 8 meq PO DAILY 01/08/18 01/08/18 History Spironolactone [Aldactone] 50 mg PO DAILY 01/08/18 01/08/18 History Allergies Allergy/AdvReac Type Severity Reaction Status Date / Time No Known Allergies Allergy Verified 01/08/18 16:53 Physical Exam Vitals: Vital Signs Temp Pulse Pulse Resp BP BP Pulse Ox 01/09/18 08:55 64 01/09/18 08:36 64 01/09/18 04:00 98.3 F 61 20 163/77 92 L 01/08/18 23:19 98.3 F 62 18 159/78 93 L 01/08/18 23:08 65 01/08/18 23:00 65 01/08/18 21:06 97.9 F 67 18 177/87 96 01/08/18 20:47 65 195/97 96 01/08/18 20:30 69 18 198/95 96 01/08/18 19:32 61 18 214/100 94 L 01/08/18 18:36 61 20 169/119 95 01/08/18 15:58 98.6 F 73 20 183/100 93 L Intake and Output 01/08/18 01/09/18 01/09/18 22:59 06:59 14:59 Intake Total 820 Output Total 2 390 Balance -2 430 Intake: Intake, IV Titration 820 Amount Furosemide 250 mg In 70 Sodium Chloride 0.9% 225 ml @ 10 MG/HR 10 mls/hr IVP .Q24H ÁLVARO Rx#: [id number] Magnesium Sulfate-D5w Pmx 200 1 gm In Dextrose/Water 1 100ml.bag @ 100 mls/hr IVPB Q1H ÁLVARO Rx#: [id number] Piperacillin-Tazobactam 3 50 .375 gm In Dextrose/Water 1 50ml.bag @ 12.5 mls/hr IVPB Q8H ÁLVARO Rx#: [id number] Vancomycin 2,000 mg In 500 Sodium Chloride 0.9% 500 ml @ 167 mls/hr IVPB Q12H ÁLVARO Rx#:[id number] Output: Urine 2 390 Other: # Voids 300 3 Weight 149.413 kg 146.5 kg Morbidly obese, comfortable with a BMI of 46 Gen. appearance, comfortable likely distress. Laying comfortably in bed. Head exam was generally normal. There was no scleral icterus or corneal arcus. Mucous membranes were moist. Neck was supple and without jugular venous distension, thyromegaly, or carotid bruits. Carotids were easily palpable bilaterally. There was no adenopathy. Patient has a Mallampati class IV and there is no goiter or neck masses at this point in time. Lung sounds are diminished in the lung bases bilaterally. No wheezes overall currently crackles. Heart sounds are irregular, possible sinus stool, no cervical murmurs appreciated and overall heart sounds are distant. Abdomen is obese soft nontender. No direct tenderness or rebound tensile guarding. Organs cannot be accurately palpated. Extremities revealed +2-3 pitting edema along with skin breaks and weeping of the skin due to excessive fluid and there is also cellulitis bilaterally in the lower extremities mainly anterior. Results - Laboratory Findings CBC and BMP: 01/08/18 17:11 01/09/18 06:50 PT/INR, D-dimer PT 18.9 sec (9.0-12.0) H 01/09/18 06:50 INR 2.1 (<1.2) H 01/09/18 06:50 Abnormal lab findings: Abnormal Labs 01/08/18 01/08/18 01/08/18 16:00 16:00 17:11 PT 18.3 H INR 2.0 H APTT 32.9 H Carbon Dioxide 32 H Glucose 111 H Calcium AST 143 H Alkaline Phosphatase 132 H Total Creatine Kinase 42 L Total Protein 6.2 L 01/08/18 01/09/18 01/09/18 23:37 06:50 06:50 PT 18.9 H INR 2.1 H APTT Carbon Dioxide 31 H Glucose 186 H 129 H Calcium 8.1 L AST Alkaline Phosphatase Total Creatine Kinase Total Protein - Diagnostic Findings Chest x-ray: image reviewed Assessment and Plan Plan: Assessment 1 CHF with an ejection fraction less than 30% with a previous AICD placement 2 extensive lower extremity edema with was fluid overload and cellulitis of lower extremity is bilaterally 3 COPD, moderate in severity currently inactive in stable 4 hypertension 5 hyperlipidemia 6 aortic aneurysm likely abdominal 7 chronic back pain 8 acid reflux 9 smoker plan Continue Zosyn and vancomycin. Lasix drip. Long-term medical condition with warfarin. Outpatient cardiac medications including Coreg, Lasix, Zestril will be resumed. Local wound care to the lower extremities. We'll continue to follow.
[2018-01-09] MEDS ORDERED: VANCOMYCIN 2,000 MG in SODIUM CHLORIDE 0.9% 500 ML IVPB SCH (11:00)
[2018-01-09] MEDS: VANCOMYCIN 2,000 MG in SODIUM CHLORIDE 0.9% 500 ML IVPB SCH ×2 (12:51→23:00)
--- NOTE | 2018-01-09 14:32 | P.CRDCN ---
History of Present Illness Consult date: 01/09/18 Chief complaint: Bilateral lower extremities edema History of present illness: This is a pleasant 67-year-old gentleman who sees Dr. Gonsalez in the office on regular basis with a past medical history significant for severe nonischemic cardiomyopathy, status post AICD, paroxysmal atrial fibrillation, chronic hypoxic respiratory failure secondary to COPD, as well as morbid obesity, presented to the hospital complaining of bilateral lower extremities edema. The patient stated that the edema in the lower extremity started about one week ago. It was getting worse. It was getting worse to the level where the skin was losing fluid. Beside that he developed bilateral lower extremities redness consistent with cellulitis. He did not have any symptoms of exertional dyspnea , orthopnea, or PND. No symptoms of chest pain or chest discomfort. The patient stated that he gained significant amount of weight and he stated that he was compliant with all of his medication but he wasn't sure if she was compliant with his diet. No history of upper respiratory infection. Again no chest pain or chest discomfort. The patient was admitted to the hospital and he was started on Lasix drip. The kidney function continues to be stable. The chest x-ray showed findings consistent with CHF. The BMP is only around 700. The EKG showed sinus rhythm. Past Medical History Past Medical History: Atrial Fibrillation, Heart Failure, COPD, GERD/Reflux, Hyperlipidemia, Hypertension, Respiratory Disorder Additional Past Medical History / Comment(s): Cardiomyopathy with a previous AICD placement, COPD, hypertension, deafness, psoriasis, history of abdominal aortic aneurysm, chronic pain with insertion of a spinal cord stimulator, hypertension, hyperlipidemia History of Any Multi-Drug Resistant Organisms: None Reported Past Surgical History: AICD, Heart Catheterization Additional Past Surgical History / Comment(s): AICD/DEFIBILLATOR. PAIN CLINIC PROCEDURES Past Anesthesia/Blood Transfusion Reactions: No Reported Reaction Type of Cardiac Device: AICD Device Placement Date:: 06/17/2006 Past Psychological History: No Psychological Hx Reported Smoking Status: Current every day smoker Past Alcohol Use History: None Reported Additional Past Alcohol Use History / Comment(s): SMOKES 1 PPD SINCE AGE 16 Past Drug Use History: None Reported - Past Family History Mother Family Medical History: Unable to Obtain Father Family Medical History: CVA/TIA Medications and Allergies Home Medications Medication Instructions Recorded Confirmed Type Carvedilol [Coreg] 25 mg PO Q8H 11/02/13 01/08/18 History Digoxin [Lanoxin] 125 mcg PO DAILY 11/02/13 01/08/18 History Enalapril [Vasotec] 20 mg PO BID 11/02/13 01/08/18 History Furosemide [Lasix] 40 mg PO BID 11/02/13 01/08/18 History Ranitidine HCl [Zantac] 150 mg PO BID 11/02/13 01/08/18 History Simvastatin [Zocor] 40 mg PO HS 11/02/13 01/08/18 History Warfarin Sodium [Coumadin] 6 mg PO SUMOWETHFR 11/02/13 01/08/18 History amLODIPine [Norvasc] 10 mg PO DAILY 03/15/14 01/08/18 History Warfarin Sodium [Coumadin] 3 mg PO TUSA 07/15/14 01/08/18 History Potassium Chloride [Klor-Con 8] 8 meq PO DAILY 01/08/18 01/08/18 History Spironolactone [Aldactone] 50 mg PO DAILY 01/08/18 01/08/18 History Allergies Allergy/AdvReac Type Severity Reaction Status Date / Time No Known Allergies Allergy Verified 01/08/18 16:53 Physical Exam Vitals: Vital Signs Temp Pulse Pulse Resp BP BP Pulse Ox 01/09/18 12:20 60 01/09/18 12:02 60 01/09/18 12:00 63 18 133/66 89 L 01/09/18 08:55 64 01/09/18 08:36 64 01/09/18 08:00 98.5 F 65 18 144/77 86 L 01/09/18 04:00 98.3 F 61 20 163/77 92 L 01/08/18 23:19 98.3 F 62 18 159/78 93 L 01/08/18 23:08 65 01/08/18 23:00 65 01/08/18 21:06 97.9 F 67 18 177/87 96 01/08/18 20:47 65 195/97 96 01/08/18 20:30 69 18 198/95 96 01/08/18 19:32 61 18 214/100 94 L 01/08/18 18:36 61 20 169/119 95 01/08/18 15:58 98.6 F 73 20 183/100 93 L Intake and Output 01/08/18 01/09/18 01/09/18 22:59 06:59 14:59 Intake Total 820 Output Total 2 390 Balance -2 430 Intake: Intake, IV Titration 820 Amount Furosemide 250 mg In 70 Sodium Chloride 0.9% 225 ml @ 10 MG/HR 10 mls/hr IVP .Q24H [facility] Rx#: [id number] Magnesium Sulfate-D5w Pmx 200 1 gm In Dextrose/Water 1 100ml.bag @ 100 mls/hr IVPB Q1H [facility] Rx#: [id number] Piperacillin-Tazobactam 3 50 .375 gm In Dextrose/Water 1 50ml.bag @ 12.5 mls/hr IVPB Q8H [facility] Rx#: [id number] Vancomycin 2,000 mg In 500 Sodium Chloride 0.9% 500 ml @ 167 mls/hr IVPB Q12H [facility] Rx#:[id number] Output: Urine 2 390 Other: # Voids 300 3 Weight 149.413 kg 146.5 kg - Constitutional General appearance: no acute distress - Respiratory Respiratory: bilateral: diminished - Cardiovascular Rhythm: regular Heart sounds: normal: S1, S2 Results 01/08/18 17:11 01/09/18 06:50 Cardiac Enzymes 01/08/18 01/08/18 Range/Units 16:00 17:11 AST 143 H (17-59) U/L CK-MB (CK-2) 0.4 (0.0-2.4) ng/mL Troponin I <0.012 (0.000-0.034) ng/mL Coagulation 01/08/18 01/09/18 Range/Units 16:00 06:50 PT 18.3 H 18.9 H (9.0-12.0) sec APTT 32.9 H (22.0-30.0) sec CBC 01/08/18 Range/Units 17:11 WBC 8.1 (3.8-10.6) k/uL RBC 5.11 (4.30-5.90) m/uL Hgb 15.5 (13.0-17.5) gm/dL Hct 47.2 (39.0-53.0) % Plt Count 182 (150-450) k/uL Comprehensive Metabolic Panel 07/14/18 07/14/18 07/15/18 Range/Units 16:00 23:37 06:50 Sodium 145 142 143 (137-145) mmol/L Potassium 4.4 3.9 3.6 (3.5-5.1) mmol/L Chloride 107 107 105 (98-107) mmol/L Carbon Dioxide 32 H 30 31 H (22-30) mmol/L BUN 17 17 15 (9-20) mg/dL Creatinine 0.80 0.70 0.73 (0.66-1.25) mg/dL Glucose 111 H 186 H 129 H (74-99) mg/dL Calcium 8.9 8.4 8.1 L (8.4-10.2) mg/dL AST 143 H (17-59) U/L ALT 70 (21-72) U/L Alkaline Phosphatase 132 H (38-126) U/L Total Protein 6.2 L (6.3-8.2) g/dL Albumin 3.8 (3.5-5.0) g/dL Current Medications Generic Name Dose Route Start Last Admin Trade Name Freq PRN Reason Stop Dose Admin Albuterol/Ipratropium 3 ml 01/08/18 22:17 01/09/18 12:02 Duoneb 0.5 Mg-3 Mg/3 Ml Soln INHALATION 3 ml RT-Q4H [facility] Administration Amlodipine Besylate 10 mg 01/09/18 09:00 01/09/18 08:34 Norvasc PO 10 mg DAILY [facility] Administration Atorvastatin Calcium 20 mg 01/08/18 21:00 01/08/18 21:42 Lipitor PO 20 mg HS [facility] Administration Budesonide 1 mg 01/09/18 08:00 01/09/18 08:35 Pulmicort INHALATION 1 mg RT-BID [facility] Administration Carvedilol 25 mg 01/08/18 19:45 01/09/18 12:50 Coreg PO 25 mg Q8H [facility] Administration Digoxin 125 mcg 01/09/18 09:00 01/09/18 08:34 Lanoxin PO 125 mcg DAILY [facility] Administration Famotidine 20 mg 01/08/18 21:00 01/09/18 08:36 Pepcid PO 20 mg BID [facility] Administration Sodium Chloride 1,000 mls @ 20 mls/hr 01/08/18 19:30 01/08/18 19:51 Saline 0.9% IV 20 mls/hr .Q24H [facility] Administration Piperacillin/Tazobactam/ 50 mls @ 12.5 mls/hr 01/09/18 04:30 01/09/18 13:14 Dextrose 3.375 gm/ IV Solution IVPB 12.5 mls/hr Q8H [facility] Administration Furosemide 250 mg/ Sodium 250 mls @ 10 mls/hr 01/08/18 22:15 01/08/18 23:11 Chloride IVP 10 mg/hr .Q24H [facility] 10 mls/hr Administration 10 MG/HR Vancomycin HCl 2,000 mg/ 500 mls @ 167 mls/hr 01/09/18 12:00 01/09/18 12:51 Sodium Chloride IVPB 167 mls/hr Q12H [facility] Administration Lisinopril 40 mg 01/08/18 21:00 01/09/18 08:34 Zestril PO 40 mg BID [facility] Administration Miscellaneous Information 1 each 01/09/18 00:22 Magnesium Per Protocol MISCELLANE DAILY PRN Per Protocol Protocol Naloxone HCl 0.2 mg 01/08/18 19:29 Narcan IV Q2M PRN Opioid Reversal Nicotine 1 patch 01/08/18 22:30 01/09/18 08:34 Habitrol 21mg/24hr Patch TRANSDERM 1 patch DAILY [facility] Administration Ondansetron HCl 4 mg 01/08/18 19:29 Zofran IVP Q8HR PRN Nausea And Vomiting Potassium Chloride 10 meq 01/09/18 09:00 01/09/18 08:35 K-Dur 10 PO 10 meq DAILY [facility] Administration Silver Sulfadiazine 1 applic 01/08/18 22:30 01/09/18 08:35 Silvadene Cream TOPICAL 1 applic BID [facility] Administration Spironolactone 50 mg 01/09/18 09:00 01/09/18 08:35 Aldactone PO 50 mg DAILY [facility] Administration Warfarin Sodium 3 mg 01/08/18 19:45 01/08/18 21:42 Coumadin PO 3 mg TUSA [facility] Administration Warfarin Sodium 6 mg 01/09/18 19:33 Coumadin PO SUMOWETHFR [facility] Intake and Output 01/08/18 01/09/18 01/09/18 22:59 06:59 14:59 Intake Total 820 Output Total 2 390 Balance -2 430 Intake: Intake, IV Titration 820 Amount Furosemide 250 mg In 70 Sodium Chloride 0.9% 225 ml @ 10 MG/HR 10 mls/hr IVP .Q24H [facility] Rx#: [id number] Magnesium Sulfate-D5w Pmx 200 1 gm In Dextrose/Water 1 100ml.bag @ 100 mls/hr IVPB Q1H [facility] Rx#: [id number] Piperacillin-Tazobactam 3 50 .375 gm In Dextrose/Water 1 50ml.bag @ 12.5 mls/hr IVPB Q8H [facility] Rx#: [id number] Vancomycin 2,000 mg In 500 Sodium Chloride 0.9% 500 ml @ 167 mls/hr IVPB Q12H [facility] Rx#:[id number] Output: Urine 2 390 Other: # Voids 300 3 Weight 149.413 kg 146.5 kg 01/08/18 17:11 01/09/18 06:50 Assessment and Plan Assessment: Assessment #1 congestive heart failure exacerbation secondary to systolic dysfunction, acute on chronic. #2 predominantly symptoms of right heart failure #3 severe nonischemic cardiomyopathy and status post AICD #4 paroxysmal atrial fibrillation #5 morbid obesity #6 chronic respiratory failure Plan #1 continue the Lasix drip for now. #2 continue monitor the kidney function and electrolytes #3 obtain an echocardiogram was Doppler #4 the patient is on antibiotic for possible cellulitis #6 continue monitor the weight and the input and output #7 fluid restriction and salt restriction #8 follow-up with the patient. Thank you for allowing us participate in his care and we'll continue following up with the patient
[2018-01-09] MEDS ORDERED: POTASSIUM CHLORIDE ER 20 MEQ TAB.ER PO STA (16:07)
[2018-01-09] MEDS: SODIUM CHLORIDE 0.9% 1,000 ML IV SCH (16:14)
[2018-01-09] MEDS: WARFARIN 3 MG TAB PO SCH (18:16)
[2018-01-09] MEDS: FUROSEMIDE 250 MG in SODIUM CHLORIDE 0.9% 225 ML IVP SCH (20:18)
[2018-01-09] MEDS: ATORVASTATIN 20 MG TAB PO SCH (20:22)
[2018-01-09] MEDS ORDERED: IPRATROPIUM-ALBUTEROL 3 ML NEB INHALATION PRN (20:39)
[2018-01-10] MEDS: CARVEDILOL 12.5 MG TAB PO SCH ×3 (04:40→19:39)
[2018-01-10] MEDS: PIPERACILLIN-TAZOBACTAM 3.375 GM in DEXTROSE/WATER 1 50ML.BAG IVPB SCH ×2 (04:44→11:51)
[2018-01-10 07:38] LABS: INR 2.2 (<1.2); Prothrombin Time 19.6 sec (9.0-12.0)
[2018-01-10] MEDS: SPIRONOLACTONE 25 MG TAB PO SCH (07:50)
[2018-01-10] MEDS: LISINOPRIL 20 MG TAB PO SCH ×2 (07:50→19:40)
[2018-01-10] MEDS: FAMOTIDINE 20 MG TAB PO SCH ×2 (07:50→19:40)
[2018-01-10] MEDS: amLODIPine 10 MG TAB PO SCH (07:51)
[2018-01-10] MEDS: POTASSIUM CHLORIDE ER 10 MEQ TAB.ER.PRT PO SCH (07:51)
[2018-01-10] MEDS: NICOTINE 21MG/24HR PATCH TRANSDERM SCH (07:53)
[2018-01-10 08:04] LABS: Anion Gap 10 mmol/L; Blood Urea Nitrogen 16 mg/dL (9-20); Calcium 7.8 mg/dL (8.4-10.2); Carbon Dioxide 29 mmol/L (22-30); Chloride 104 mmol/L (98-107); Glucose 116 mg/dL (74-99); Magnesium 1.9 mg/dL (1.6-2.3); Sodium 143 mmol/L (137-145)
[2018-01-10] MEDS: BUDESONIDE 1 MG/2 ML NEBU INHALATION SCH ×2 (08:42→19:58)
[2018-01-10] MEDS: IPRATROPIUM-ALBUTEROL 3 ML NEB INHALATION SCH ×4 (08:42→19:58)
--- NOTE | 2018-01-10 10:00 | P.PN ---
Subjective Progress Note Date: 01/10/18 Principal diagnosis: Bilateral lower extremities edema/cellulitis This is a pleasant 67-year-old gentleman who sees Dr. Gonsalez in the office on regular basis with a past medical history significant for severe nonischemic cardiomyopathy, status post AICD, paroxysmal atrial fibrillation, chronic hypoxic respiratory failure secondary to COPD, as well as morbid obesity, presented to the hospital complaining of bilateral lower extremities edema. The patient stated that the edema in the lower extremity started about one week ago. It was getting worse. It was getting worse to the level where the skin was losing fluid. Beside that he developed bilateral lower extremities redness consistent with cellulitis. He did not have any symptoms of exertional dyspnea , orthopnea, or PND. No symptoms of chest pain or chest discomfort. The patient stated that he gained significant amount of weight and he stated that he was compliant with all of his medication but he wasn't sure if she was compliant with his diet. No history of upper respiratory infection. Again no chest pain or chest discomfort. The patient was admitted to the hospital and he was started on Lasix drip. The kidney function continues to be stable. The chest x-ray showed findings consistent with CHF. The BMP is only around 700. The EKG showed sinus rhythm. On follow-up with the patient today, he is feeling better. The bilateral lower extremities edema is better. He still have bilateral lower extremities cellulitis. He expressed the wishes that he wants to go home. Currently he is on Lasix drip. His heart rate dropped to the 30s and I am going to check the AICD and change the threshold if the threshold is low. Objective - Vital Signs Vital signs: Vital Signs Temp 99.0 F 01/10/18 08:00 Pulse 64 01/10/18 08:52 Resp 18 01/10/18 08:00 BP 135/59 01/10/18 08:00 Pulse Ox 92 L 01/10/18 08:00 Intake & Output 01/09/18 01/10/18 01/10/18 18:59 06:59 18:59 Intake Total 820 761.167 180 Output Total 1490 450 Balance -670 311.167 180 Weight 143.7 kg Intake: Intake, IV Titration 820 761.167 Amount Furosemide 250 mg In 70 211.167 Sodium Chloride 0.9% 225 ml @ 10 MG/HR 10 mls/hr IVP .Q24H [facility] Rx#: [id number] Magnesium Sulfate-D5w Pmx 200 1 gm In Dextrose/Water 1 100ml.bag @ 100 mls/hr IVPB Q1H [facility] Rx#: [id number] Piperacillin-Tazobactam 3 50 50 .375 gm In Dextrose/Water 1 50ml.bag @ 12.5 mls/hr IVPB Q8H [facility] Rx#: [id number] Vancomycin 2,000 mg In 500 Sodium Chloride 0.9% 500 ml @ 167 mls/hr IVPB Q12H [facility] Rx#:[id number] Vancomycin 2,000 mg In 500 Sodium Chloride 0.9% 500 ml @ 167 mls/hr IVPB Q12H [facility] Rx#:[id number] Oral 180 Output: Urine 1490 450 Other: Voiding Method Urinal Urinal # Voids 3 - Constitutional General appearance: Present: no acute distress - Respiratory Respiratory: bilateral: diminished - Cardiovascular Heart sounds: normal: S1, S2 - Labs CBC & Chem 7: 01/08/18 17:11 01/10/18 05:40 Labs: Abnormal Lab Results - Last 24 Hours (Table) 01/10/18 01/10/18 Range/Units 05:40 05:40 PT 19.6 H (9.0-12.0) sec INR 2.2 H (<1.2) Glucose 116 H (74-99) mg/dL Calcium 7.8 L (8.4-10.2) mg/dL Microbiology - Last 24 Hours (Table) 01/08/18 16:20 Blood Culture - Preliminary Blood No Growth after 24 hours Assessment and Plan Assessment: Assessment #1 congestive heart failure exacerbation secondary to systolic dysfunction, acute on chronic. #2 predominantly symptoms of right heart failure #3 severe nonischemic cardiomyopathy and status post AICD #4 paroxysmal atrial fibrillation #5 morbid obesity #6 chronic respiratory failure Plan #1 continue the Lasix drip for now. #2 continue monitor the kidney function and electrolytes #3 follow-up on the echocardiogram #4 the patient is on antibiotic for possible cellulitis #6 continue monitor the weight and the input and output #7 fluid restriction and salt restriction #8 follow-up with the patient. Thank you for allowing us participate in his care and we'll continue following up with the patient
[2018-01-10] MEDS: DIGOXIN 125 MCG TAB PO SCH (10:07)
[2018-01-10] MEDS: VANCOMYCIN 2,000 MG in SODIUM CHLORIDE 0.9% 500 ML IVPB SCH (11:07)
--- NOTE | 2018-01-10 13:54 | P.PN ---
Subjective Progress Note Date: 01/10/18 Principal diagnosis: CHF and ejection fraction less than 30%, extensive lower extremity edema with fluid overload and cellulitis of lower extremities bilaterally Morbidly obese 67-year-old male patient with known history of cardiomyopathy and chronic atrial fibrillation COPD with an FEV1 of 47% of predicted. The patient has been progressively getting worsening edema in lower oximetry is bilaterally. He has developed extensive edema with fluid seeping from the skin surface and superimposed infection as the patient's skin is broken erythematous red and hot and warm consistent with cellulitis. The patient was started on Lasix drip by medicine. The patient is also on vancomycin. He is not having any significant shortness of [id number] chest pain. No cough or sputum production. No altered mentation. This morning he is responding to diuretics and the patient is producing adequate amount of urine output it is fully anticoagulated with warfarin with an INR of 2.1. Renal function is stable with a creatinine of 0.7. BNP is 752. He takes Lasix on outpatient basis at a dose of 40 mg by mouth twice a day. No previous history of DVT of the lower extremities. On patient seen in follow-up care unit. He remains on Lasix drip infusing at a rate of 10 mg per hour, and patient is diuresing, his weight is down to 143.7 kg from 146.5 kg on 01/09/2018. His bilateral lower extremity edema is improving, although his bilateral lower legs remain quiet red, but not warm to touch. He is on 2 L per nasal cannula with a pulse ox of 90%, afebrile , denies any chills. Denies any dyspnea, denies any chest pain. His labs were reviewed, INR is 2.2, electrolytes and renal profile are all within normal limits, CBC was done today, no new chest x-ray, patient's bilateral lower leg cellulitis is being treated with clindamycin, and vancomycin. Silvadene is being applied to bilateral lower extremities. States he is feeling better, and is insisting going home today. Patient was informed that he needs further inpatient treatment, and he seems to be reluctant to stay Objective - Vital Signs Vital signs: Vital Signs Temp 97.6 F 01/10/18 11:48 Pulse 66 01/10/18 12:01 Resp 18 01/10/18 11:48 BP 129/68 01/10/18 11:48 Pulse Ox 90 L 01/10/18 11:48 Intake & Output 01/09/18 01/10/18 01/10/18 18:59 06:59 18:59 Intake Total 820 761.167 180 Output Total 1490 450 425 Balance -670 311.167 -245 Weight 143.7 kg Intake: Intake, IV Titration 820 761.167 Amount Furosemide 250 mg In 70 211.167 Sodium Chloride 0.9% 225 ml @ 10 MG/HR 10 mls/hr IVP .Q24H [facility] Rx#: [id number] Magnesium Sulfate-D5w Pmx 200 1 gm In Dextrose/Water 1 100ml.bag @ 100 mls/hr IVPB Q1H [facility] Rx#: [id number] Piperacillin-Tazobactam 3 50 50 .375 gm In Dextrose/Water 1 50ml.bag @ 12.5 mls/hr IVPB Q8H [facility] Rx#: [id number] Vancomycin 2,000 mg In 500 Sodium Chloride 0.9% 500 ml @ 167 mls/hr IVPB Q12H [facility] Rx#:[id number] Vancomycin 2,000 mg In 500 Sodium Chloride 0.9% 500 ml @ 167 mls/hr IVPB Q12H [facility] Rx#:[id number] Oral 180 Output: Urine 1490 450 425 Other: Voiding Method Urinal Urinal # Voids 3 - Exam Morbidly obese, comfortable with a BMI of 46 Gen. appearance, comfortable likely distress. Laying comfortably in bed. Head exam was generally normal. There was no scleral icterus or corneal arcus. Mucous membranes were moist. Neck was supple and without jugular venous distension, thyromegaly, or carotid bruits. Carotids were easily palpable bilaterally. There was no adenopathy. Patient has a Mallampati class IV and there is no goiter or neck masses at this point in time. Lung sounds are diminished in the lung bases bilaterally. No wheezes overall currently crackles. Heart sounds are irregular, possible sinus stool, no cervical murmurs appreciated and overall heart sounds are distant. Abdomen is obese soft nontender. No direct tenderness or rebound tensile guarding. Organs cannot be accurately palpated. Extremities revealed +2 pitting edema along with skin breaks and weeping of the skin due to excessive fluid and there is also cellulitis bilaterally in the lower extremities mainly anterior. Less swollen today - Labs CBC & Chem 7: 01/08/18 17:11 01/10/18 05:40 Labs: Abnormal Lab Results - Last 24 Hours (Table) 01/10/18 01/10/18 Range/Units 05:40 05:40 PT 19.6 H (9.0-12.0) sec INR 2.2 H (<1.2) Glucose 116 H (74-99) mg/dL Calcium 7.8 L (8.4-10.2) mg/dL Microbiology - Last 24 Hours (Table) 01/08/18 16:20 Blood Culture - Preliminary Blood No Growth after 24 hours Assessment and Plan Plan: Assessment: 1 CHF with an ejection fraction less than 30% with a previous AICD placement 2 extensive lower extremity edema with was fluid overload and cellulitis of lower extremity is bilaterally 3 COPD, moderate in severity currently inactive in stable 4 hypertension 5 hyperlipidemia 6 aortic aneurysm likely abdominal 7 chronic back pain 8 acid reflux 9 smoker plan Continue Lasix drip, she is diuresing well, although he still has significant amount of bilateral lower extremity edema. Denies any dyspnea or chest pain. Continue current antibiotic coverage, continue monitoring electrolytes and renal profile. Patient is insisting on going home despite that he still needs inpatient treatment. Continue current nebulized bronchodilators, his COPD stable right now I performed a history & physical examination of the patient and discussed their management with my nurse practitioner, Faina Aguero. I reviewed the nurse practitioner's note and agree with the documented findings and plan of care. Lung sounds are diminished. The findings and the impression was discussed with the patient. I attest to the documentation by the nurse practitioner. Time with Patient: Less than 30
--- NOTE | 2018-01-10 13:58 | PN ---
PROGRESS NOTE DATE OF SERVICE: 01/09/18. PRESENTING COMPLAINT: Short of breath, leg edema. INTERVAL HISTORY: The patient is seen by me yesterday. Admitted with CHF exacerbation, possible cor pulmonale. Pending 2D echo. Edema coming down. COPD exacerbation present, which has gotten better. Patient smoker. REVIEW OF SYSTEMS: Done for constitutional, cardiovascular, GI, pulmonary; findings as above. CURRENT MEDICATIONS: Include IV Lasix drip, bronchodilators, IV Zosyn. PHYSICAL EXAMINATION: Temperature 98, pulse 59, respirations 18, blood pressure 143/88, pulse ox 98% on 2 L. GENERAL APPEARANCE: Sitting up, tired-appearing. EYES: Pupils equal. Conjunctivae normal. HEENT: External appearance of nose and ears normal. Oral cavity normal. NECK: JVD unable to assess. Mass not palpable. RESPIRATORY: Effort increased. LUNGS: Diminished breath sounds. Prolonged expiration. Decreased wheezing. CARDIOVASCULAR: Heart sounds muffled. Gross edema present. ABDOMEN: Distended, soft. Liver and spleen not palpable. PSYCHIATRY: Alert and oriented x3. Mood and affect normal. INVESTIGATIONS: INR 2.1, BUN 31, creatinine 30, BUN 15, creatinine 0.73. The patient's I's and O's are not very accurate. ASSESSMENT: 1. Acute congestive heart failure exacerbation. EF pending, assessment possible cor pulmonale pending 2D echo. 2. Acute chronic obstructive pulmonary disease exacerbation in a current smoker. 3. Chronic nicotine dependence. Patient is a cigarette smoker. 4. AICD. 5. Bradycardia, AICD being checked by Dr. Saunders. 6. Hyperlipidemia. 7. Paroxysmal atrial fibrillation currently in sinus rhythm, chronically on Coumadin. 8. Coumadin monitoring. 9. Essential hypertension. 10.Morbid obesity, BMI 47.3. 11.Bilateral lower extremity superficial cellulitis with blisters. PLAN: Continue medication and treatment plan. Fluid restriction to continue. Follow electrolytes closely. Pending 2D echo. Silvadene cream to continue. We will switch the patient to clindamycin. MMODL / IJN: [id number] /
[2018-01-10] MEDS: CLINDAMYCIN 150 MG CAP PO SCH ×3 (14:57→19:40)
--- NOTE | 2018-01-10 15:05 | ECHOF ---
Referral Reason:CHF MEASUREMENTS -------- HEIGHT: 180.3 cm WEIGHT: 143.3 kg BP: 118/57 IVSd: 1.7 cm (0.6 - 1.1) LVIDd: 4.8 cm (3.9 - 5.3) LVPWd: 1.9 cm (0.6 - 1.1) IVSs: 2.1 cm LVIDs: 3.5 cm LVPWs: 2.3 cm LA Diam: 4.0 cm (2.7 - 3.8) AV Cusp: 2.3 cm (1.5 - 2.6) MV E Obed: 0.63 m/s MV DecT: 199 ms MV A Obed: 0.82 m/s MV E/A Ratio: 0.77 FINDINGS -------- Resting bradycardia (HR<60bpm). AICD This was a technically difficult study with suboptimal views. The left ventricular size is normal. There is severe concentric left ventricular hypertrophy. Ove rall left ventricular systolic function is low-normal with, an EF between 50 - 55 %. The right ventricle is normal in size and function. The left atrium is normal in size. The right atrium is normal in size. Lumason used The aortic valve is trileaflet, and appears structurally normal. No aortic stenosis or regurgitation. There is trace mitral regurgitation. Trace tricuspid regurgitation present. The right ventricular systolic pressure, as measured by Dopp ler, is {RVSP}. Pulmonic valve appears structurally normal. The aortic root size is normal. The pericardium is normal. CONCLUSIONS -------- 1. Resting bradycardia (HR<60bpm). 2. AICD 3. This was a technically difficult study with suboptimal views. 4. The left ventricular size is normal. 5. There is severe concentric left ventricular hypertrophy. 6. Overall left ventricular systolic function is low-normal with, an EF between 50 - 55 %. 7. The right ventricle is normal in size and function. 8. The left atrium is normal in size. 9. The right atrium is normal in size. 10. Lumason used 11. The aortic valve is trileaflet, and appears structurally normal. No aortic stenosis or regurgitat ion. 12. There is trace mitral regurgitation. 13. Trace tricuspid regurgitation present. 14. The right ventricular systolic pressure, as measured by Doppler, is {RVSP}. 15. Pulmonic valve appears structurally normal. 16. The aortic root size is normal. 17. The pericardium is normal. PIZZA DRIVER: Roselia Smith RDCS
[2018-01-10] MEDS: WARFARIN 3 MG TAB PO SCH (19:39)
[2018-01-10] MEDS: ATORVASTATIN 20 MG TAB PO SCH (19:39)
[2018-01-10] MEDS: FUROSEMIDE 250 MG in SODIUM CHLORIDE 0.9% 225 ML IVP SCH (19:40)
[2018-01-10] MEDS: SODIUM CHLORIDE 0.9% 1,000 ML IV SCH (20:35)
[2018-01-10] MEDS: ceFAZolin IN SWFI 2 GM/20 ML SYRINGE IVP SCH (23:00)
[2018-01-11] MEDS: CARVEDILOL 12.5 MG TAB PO SCH ×2 (04:55→11:50)
[2018-01-11 07:23] LABS: INR 2.9 (<1.2); Prothrombin Time 26.3 sec (9.0-12.0)
[2018-01-11 07:44] LABS: Anion Gap 7 mmol/L; Blood Urea Nitrogen 15 mg/dL (9-20); Calcium 8.3 mg/dL (8.4-10.2); Carbon Dioxide 32 mmol/L (22-30); Chloride 102 mmol/L (98-107); Glucose 121 mg/dL (74-99); Potassium 3.9 mmol/L (3.5-5.1); Sodium 141 mmol/L (137-145)
[2018-01-11] MEDS: LISINOPRIL 20 MG TAB PO SCH (08:31)
[2018-01-11] MEDS: DIGOXIN 125 MCG TAB PO SCH (08:31)
[2018-01-11] MEDS: ceFAZolin IN SWFI 2 GM/20 ML SYRINGE IVP SCH ×2 (08:31→15:03)
[2018-01-11] MEDS: FAMOTIDINE 20 MG TAB PO SCH (08:31)
[2018-01-11] MEDS: SPIRONOLACTONE 25 MG TAB PO SCH (08:31)
[2018-01-11] MEDS: POTASSIUM CHLORIDE ER 10 MEQ TAB.ER.PRT PO SCH (08:31)
[2018-01-11] MEDS: NICOTINE 21MG/24HR PATCH TRANSDERM SCH (08:31)
[2018-01-11] MEDS: amLODIPine 10 MG TAB PO SCH (08:31)
[2018-01-11] MEDS: BUDESONIDE 1 MG/2 ML NEBU INHALATION SCH (08:58)
[2018-01-11] MEDS: IPRATROPIUM-ALBUTEROL 3 ML NEB INHALATION SCH ×4 (09:00→15:26)
--- NOTE | 2018-01-11 10:38 | PN ---
PROGRESS NOTE DATE OF SERVICE: 01/10/2018 This is a 67-year-old gentleman admitted with CHF acute exacerbation, possible acute on chronic diastolic dysfunction also had bilateral leg swelling and edema also. The patient is on IV diuretics, IV Lasix from Cardiology and Pulmonology following the patient closely. No chest pain. No palpitations. PAST MEDICAL HISTORY: Reviewed. REVIEW OF SYSTEMS: CARDIOVASCULAR: As mentioned earlier. GI: No nausea. : No dysuria. NERVOUS SYSTEM: No numbness or weakness. ALLERGY anastomosis could mentioned earlier. CURRENT MEDICATIONS ARE REVIEWED AND INCLUDE: 1. Lasix drip. 2. DuoNeb q.i.d. and p.r.n. 3. Norvasc 10 mg daily. 4. Lipitor 20 mg/. 5. Pulmicort 1 mg b.i.d. Coreg 25 mg q.8. 6. Cleocin 300 mg p.o. q.i.d. 7. Lanoxin 125 mg p.o. 8. Pepcid 20 mg p.o. b.i.d. Lasix. 9. Narcan. 10.K-Dur 10 mg every increase. 11.Coumadin 3 mg. PHYSICAL EXAM: Patient is alert, oriented x3. Pulse blood pressure 140/70, respirations 17, temperature 97.9, pulse ox 94% on 2 L. HEENT: Conjunctivae normal. Oral mucosa moist. Neck is no jugular venous distention. No lymph nodes cardiovascular systems respiration the bases a few scattered rhonchi and crackles. ABDOMEN: Soft, nontender. LEGS: Bilateral leg edema NERVOUS SYSTEM: Higher functions as mentioned muscle no lymphadenopathy skin no rash. LAB STUDIES: CBC within normal limits. Sodium 143, potassium 4. ASSESSMENT: 1. Congestive heart failure acute exacerbation with bilateral leg edema with acute on chronic diastolic dysfunction. 2. Chronic nicotine dependence. 3. Acute bilateral leg cellulitis. 4. AICD. 5. Bradycardia. 6. Hyperlipidemia. 7. Paroxysmal atrial fibrillation. 8. Coumadin monitor. 9. Hypertension. 10.Morbid obesity. RECOMMENDATION: Recommend to continue current management and symptomatic treatment. Monitor fluid and electrolyte balance closely. Fluid restriction. Guarded prognosis because of multiple complex medical issues. Further recommendations to follow. MMODL / IJN: [id number] /
[2018-01-11] MEDS ORDERED: VANCOMYCIN TROUGH DUE 1 EACH MISC MISCELLANE ONE (11:00)
[2018-01-11 11:46] VITALS: RESP 18
--- NOTE | 2018-01-11 12:11 | P.PN ---
Subjective Progress Note Date: 01/11/18 Principal diagnosis: Acute exacerbation of chronic systolic congestive heart failure with ejection fraction less than 30%. Morbidly obese 67-year-old male patient with known history of cardiomyopathy and chronic atrial fibrillation COPD with an FEV1 of 47% of predicted. The patient has been progressively getting worsening edema in lower oximetry is bilaterally. He has developed extensive edema with fluid seeping from the skin surface and superimposed infection as the patient's skin is broken erythematous red and hot and warm consistent with cellulitis. The patient was started on Lasix drip by medicine. The patient is also on vancomycin. He is not having any significant shortness of [id number] chest pain. No cough or sputum production. No altered mentation. This morning he is responding to diuretics and the patient is producing adequate amount of urine output it is fully anticoagulated with warfarin with an INR of 2.1. Renal function is stable with a creatinine of 0.7. BNP is 752. He takes Lasix on outpatient basis at a dose of 40 mg by mouth twice a day. No previous history of DVT of the lower extremities. On , patient seen in follow-up care unit. He remains on Lasix drip infusing at a rate of 10 mg per hour, and patient is diuresing, his weight is down to 143.7 kg from 146.5 kg on 01/09/2018. His bilateral lower extremity edema is improving, although his bilateral lower legs remain quiet red, but not warm to touch. He is on 2 L per nasal cannula with a pulse ox of 90%, afebrile , denies any chills. Denies any dyspnea, denies any chest pain. His labs were reviewed, INR is 2.2, electrolytes and renal profile are all within normal limits, CBC was done today, no new chest x-ray, patient's bilateral lower leg cellulitis is being treated with clindamycin, and vancomycin. Silvadene is being applied to bilateral lower extremities. States he is feeling better, and is insisting going home today. Patient was informed that he needs further inpatient treatment, and he seems to be reluctant to stay The patient is seen today 01/11/2018 in follow-up on the selective care unit. He is currently resting quite comfortably in bed. A ethel flat. Denies any worsening shortness of breath, cough or congestion. Maintaining O2 saturations in the 90s on room air. He has been afebrile. Hemodynamically stable. He is anxious to go home. Blood culture reveals no growth thus far. INR 2.9. Creatinine 0.80. He remains on a Lasix drip at 10 mg per hour. Joselito wraps to lower extremities. He remains on Kefzol. Objective - Vital Signs Vital signs: Vital Signs Temp 98.1 F 01/11/18 11:45 Pulse 62 01/11/18 11:45 Resp 18 01/11/18 11:45 BP 143/78 01/11/18 11:45 Pulse Ox 92 L 01/11/18 11:45 Intake & Output 01/10/18 01/11/18 01/11/18 18:59 06:59 18:59 Intake Total 360 233.667 Output Total 2475 1500 Balance -2115 -1266.333 Weight 141.6 kg Intake: Intake, IV Titration 233.667 Amount Furosemide 250 mg In 233.667 Sodium Chloride 0.9% 225 ml @ 10 MG/HR 10 mls/hr IVP .Q24H ÁLVARO Rx#: [id number] Oral 360 Output: Urine 2475 1500 Other: Voiding Method Urinal - Exam Morbidly obese, comfortable with a BMI of 46 Gen. appearance, comfortable likely distress. Laying comfortably in bed. Head exam was generally normal. There was no scleral icterus or corneal arcus. Mucous membranes were moist. Neck was supple and without jugular venous distension, thyromegaly, or carotid bruits. Carotids were easily palpable bilaterally. There was no adenopathy. Patient has a Mallampati class IV and there is no goiter or neck masses at this point in time. Lung sounds are diminished in the lung bases bilaterally. No wheezes overall currently crackles. Heart sounds are irregular, possible sinus stool, no cervical murmurs appreciated and overall heart sounds are distant. Abdomen is obese soft nontender. No direct tenderness or rebound tensile guarding. Organs cannot be accurately palpated. Extremities revealed +2 pitting edema along with skin breaks and weeping of the skin due to excessive fluid and there is also cellulitis bilaterally in the lower extremities mainly anterior. Less swollen today - Labs CBC & Chem 7: 01/08/18 17:11 01/11/18 06:25 Labs: Abnormal Lab Results - Last 24 Hours (Table) 01/11/18 01/11/18 Range/Units 06:25 06:25 PT 26.3 H (9.0-12.0) sec INR 2.9 H (<1.2) Carbon Dioxide 32 H (22-30) mmol/L Glucose 121 H (74-99) mg/dL Calcium 8.3 L (8.4-10.2) mg/dL Microbiology - Last 24 Hours (Table) 01/08/18 16:20 Blood Culture - Preliminary Blood No Growth after 48 hours Assessment and Plan Assessment: Assessment: 1 CHF with an ejection fraction less than 30% with a previous AICD placement 2 extensive lower extremity edema with was fluid overload and cellulitis of lower extremity is bilaterally 3 COPD, moderate in severity currently inactive in stable 4 hypertension 5 hyperlipidemia 6 aortic aneurysm likely abdominal 7 chronic back pain 8 acid reflux 9 smoker plan: The patient was seen and evaluated by Dr. Wong. We'll continue with his current pulmonary medications. Diuretics per cardiology. Patient is again educated regarding the importance of complete smoking cessation. He is also educated regarding the importance of medication and follow-up compliance. He is quite adamant about going home again today. We will continue to follow and make further recommendations based on his clinical status. I, the cosigning physician, performed a history & physical examination of the patient. Lungs sounds with faint crackles in the bilateral posterior bases. Diminished.. Maintaining good O2 saturations in the 90s on room air. I discussed the assessment and plan of care with my nurse practitioner, Rain Lock. I attest to the above note as dictated by her.
--- NOTE | 2018-01-11 12:58 | P.PN ---
Subjective Progress Note Date: 01/11/18 Principal diagnosis: Bilateral lower extremities edema/cellulitis This is a pleasant 67-year-old gentleman who sees Dr. Gonsalez in the office on regular basis with a past medical history significant for severe nonischemic cardiomyopathy, status post AICD, paroxysmal atrial fibrillation, chronic hypoxic respiratory failure secondary to COPD, as well as morbid obesity, presented to the hospital complaining of bilateral lower extremities edema. The patient stated that the edema in the lower extremity started about one week ago. It was getting worse. It was getting worse to the level where the skin was losing fluid. Beside that he developed bilateral lower extremities redness consistent with cellulitis. He did not have any symptoms of exertional dyspnea , orthopnea, or PND. No symptoms of chest pain or chest discomfort. The patient stated that he gained significant amount of weight and he stated that he was compliant with all of his medication but he wasn't sure if she was compliant with his diet. No history of upper respiratory infection. Again no chest pain or chest discomfort. The patient was admitted to the hospital and he was started on Lasix drip. The kidney function continues to be stable. The chest x-ray showed findings consistent with CHF. The BMP is only around 700. The EKG showed sinus rhythm. On follow-up with the patient today, he is feeling better. The bilateral lower extremities edema is better. He still have bilateral lower extremities cellulitis. He expressed the wishes that he wants to go home. Currently he is on Lasix drip. I am going to DC the Lasix IV and start the patient on Lasix by mouth at 60 mg twice a day. The patient can be discharged home. Objective - Vital Signs Vital signs: Vital Signs Temp 98.1 F 01/11/18 11:45 Pulse 64 01/11/18 12:36 Resp 18 01/11/18 11:45 BP 143/78 01/11/18 11:45 Pulse Ox 92 L 01/11/18 11:45 Intake & Output 01/10/18 01/11/18 01/11/18 18:59 06:59 18:59 Intake Total 360 233.667 Output Total 2475 1500 Balance -2115 -1266.333 Weight 141.6 kg Intake: Intake, IV Titration 233.667 Amount Furosemide 250 mg In 233.667 Sodium Chloride 0.9% 225 ml @ 10 MG/HR 10 mls/hr IVP .Q24H [facility] Rx#: [id number] Oral 360 Output: Urine 2475 1500 Other: Voiding Method Urinal - Constitutional General appearance: Present: no acute distress - Respiratory Respiratory: bilateral: CTA - Cardiovascular Heart sounds: normal: S1, S2 - Labs CBC & Chem 7: 01/08/18 17:11 01/11/18 06:25 Labs: Abnormal Lab Results - Last 24 Hours (Table) 01/11/18 01/11/18 Range/Units 06:25 06:25 PT 26.3 H (9.0-12.0) sec INR 2.9 H (<1.2) Carbon Dioxide 32 H (22-30) mmol/L Glucose 121 H (74-99) mg/dL Calcium 8.3 L (8.4-10.2) mg/dL Microbiology - Last 24 Hours (Table) 01/08/18 16:20 Blood Culture - Preliminary Blood No Growth after 48 hours Assessment and Plan Assessment: Assessment #1 congestive heart failure exacerbation secondary to systolic dysfunction, acute on chronic. #2 predominantly symptoms of right heart failure #3 severe nonischemic cardiomyopathy and status post AICD #4 paroxysmal atrial fibrillation #5 morbid obesity #6 chronic respiratory failure Plan #1 change the Lasix IV to Lasix by mouth. #2 from the cardiovascular standpoint overview, the patient can be discharged home.
[2018-01-11 15:20] VITALS: BP 150/79; TEMP 97.9
[2018-01-11 15:46] VITALS: PULSE 78
[2018-01-11] MEDS ORDERED: FUROSEMIDE 20 MG TAB PO SCH (16:00)
--- NOTE | 2018-01-11 17:11 | DS ---
DISCHARGE SUMMARY FINAL DIAGNOSES: 1. Congestive heart failure acute exacerbation with bilateral leg edema with acute on chronic diastolic dysfunction. 2. Chronic nicotine dependence. 3. Acute bilateral leg cellulitis. 4. AICD. 5. Bradycardia. 6. Hyperlipidemia. 7. Paroxysmal atrial fibrillation. 8. Coumadin monitoring. 9. Hypertension. 10.Morbid obesity. DISCHARGE DISPOSITION: The patient is being discharged in stable condition with guarded prognosis. HISTORY OF PRESENT ILLNESS: This 67-year-old gentleman with past medical history of multiple medical problems was admitted with bilateral leg swelling, CHF treated with Lasix drip. Improved significantly. Dr. Saunders saw the patient. Antibiotics initiated also. On exam, vital signs are stable. Cardiovascular: S1, S2. Abdomen soft. Nervous system: No focal deficits. Legs: No focal deficits. DISCHARGE ADVICE AND MEDICATIONS: 1. Discharge diet is cardiac diet. 2. Activity limited until followup. 3. Follow up with Dr. Tracy Drake in 2 to 3 days. 4. Follow up with Cardiology as recommended. MEDICATIONS ARE: 1. Norvasc 10 mg p.o. daily. 2. Coreg 25 mg q.8h p.r.n. 3. Lanoxin 125 mg p.o. daily. 4. Vasotec 10 mg p.o. daily. 5. Klor-Con 8 mEq p.o. daily. 6. Zantac 150 mg p.o. b.i.d. 7. Zocor 40 mg q.h.s. 8. Aldactone 50 mg p.o. daily. 9. Coumadin 6 mg Wednesday, Wednesday, Wednesday, , Wednesday and 3 mg Wednesday, Wednesday. 10.Keflex 500 mg every 8 hours for 5 days. 11.Lasix 40 mg p.o. b.i.d. 12.Habitrol 21 daily. 13.Silver sulfadiazine local application and continue to monitor. Once again, the patient being discharged in stable condition with guarded prognosis. MMODL / IJN: [id number] /
== END 2018-01-11 17:00 | disposition home health service (06) | DRG 292 ==
LOC: EC 15:50 → 6SEL 19:28
PROVIDERS: ADMIT Hospitalist; ATTEND Hospitalist
DX: I11.0 Hypertensive heart disease with heart failure (principal); L03.116 Cellulitis of left lower limb; L03.115 Cellulitis of right lower limb; Z68.42 Body mass index [BMI] 45.0-49.9, adult; J44.1 Chronic obstructive pulmonary disease with (acute) exacerbation; J96.11 Chronic respiratory failure with hypoxia; G89.29 Other chronic pain; I48.2 Chronic atrial fibrillation; H91.90 Unspecified hearing loss, unspecified ear; I42.9 Cardiomyopathy, unspecified; I50.23 Acute on chronic systolic (congestive) heart failure; K21.9 Gastro-esophageal reflux disease without esophagitis; I48.0 Paroxysmal atrial fibrillation; E66.01 Morbid (severe) obesity due to excess calories; E78.5 Hyperlipidemia, unspecified; F17.210 Nicotine dependence, cigarettes, uncomplicated; I71.4 Abdominal aortic aneurysm, without rupture; Z95.810 Presence of automatic (implantable) cardiac defibrillator; Z79.01 Long term (current) use of anticoagulants; Z79.899 Other long term (current) drug therapy; Z86.79 Personal history of other diseases of the circulatory system
CPT/HCPCS: 36415; 71046; 80048; 80053; 82550; 82553; 83605; 83735; 83880; 84484; 85025; 85610; 85730; 87040; 93005; 93306; 94640; 94760; 96365; 96375; 99285

== ENCOUNTER → 2018-01-14 | Outpatient (CLI) | payer MEDICARE, OTHER ==
[2018-01-14 10:03] LABS: Basophils % (A) 0 %; Eosinophils # (A) 0.2 k/uL (0-0.7); Eosinophils % (A) 2 %; HCT 49.5 % (39.0-53.0); HGB 15.3 gm/dL (13.0-17.5); Lymphocytes # (A) 2.8 k/uL (1.0-4.8); Lymphocytes % (A) 31 %; MCH 28.8 pg (25.0-35.0); MCV 93.1 fL (80.0-100.0); Mean Platelet Volume 7.7; Monocytes # (A) 0.7 k/uL (0-1.0); Monocytes % (A) 7 %; Neutrophils # (A) 5.3 k/uL (1.3-7.7); Neutrophils % (A) 58 %; Platelet Count 201 k/uL (150-450); RBC 5.32 m/uL (4.30-5.90); RDW 14.1 % (11.5-15.5); WBC 9.2 k/uL (3.8-10.6)
[2018-01-14 10:20] LABS: Anion Gap 8 mmol/L; Blood Urea Nitrogen 15 mg/dL (9-20); Calcium 8.7 mg/dL (8.4-10.2); Carbon Dioxide 30 mmol/L (22-30); Chloride 105 mmol/L (98-107); Glucose 160 mg/dL (74-99); Sodium 143 mmol/L (137-145)
== END | disposition home or self-care (01) ==
LOC: LABWHC1 09:42
PROVIDERS: ATTEND Nurse Practitioner
DX: I50.9 Heart failure, unspecified (principal)
CPT/HCPCS: 36415; 80048; 85025

== ENCOUNTER → 2018-08-16 | Outpatient (CLI) | payer MEDICARE, OTHER ==
--- NOTE | 2018-08-16 14:55 | US ---
EXAMINATION TYPE: US pelvic limited DATE OF EXAM: 08/16/2018 COMPARISON: NONE CLINICAL HISTORY: R19.04 ABD AND PELVIC SWELLING. burning sensation within LLQ of male pelvis, no kno wn injury, no palpable Soft tissue scan where patient has burning shows normal appearing features. No obvious hernia, fluid collection or abnormality noted. IMPRESSION: No sonographic correlate to the left lower quadrant burning sensation.
== END | disposition home or self-care (01) ==
LOC: RADUSWWP 14:04
PROVIDERS: ATTEND Internal Medicine
DX: R19.04 Left lower quadrant abdominal swelling, mass and lump (principal)
CPT/HCPCS: 76857

== ENCOUNTER → 2018-08-17 | Outpatient (CLI) | payer MEDICARE, OTHER ==
--- NOTE | 2018-08-17 17:18 | US ---
EXAMINATION TYPE: US duplex aorta DATE OF EXAM: 08/17/2018 COMPARISON: CLINICAL HISTORY: Z87.891 PERSONAL HX NICOTINE DEPENDANCE. Smoker. No hx of AAA. HTN. No high chol esterol. Limited visualization due to patient body habitus and overlying bowel gas EXAM MEASUREMENTS: Abdominal Aorta: Proximal: 2.5 x 2.6 cm Mid: 2.1 x 2.2 cm Distal: 1.8 x 2.2 cm Bifurcation: right- 1.6 x 1.0 cm left- 1.6 x 1.0 cm No AAA visualized in portions seen IMPRESSION: 1. Aorta tapers normally through its visualized course. No abdominal aortic aneurysm evident.
== END | disposition home or self-care (01) ==
LOC: RADUSWWP 07:58
PROVIDERS: ATTEND Internal Medicine
DX: Z13.6 Encounter for screening for cardiovascular disorders (principal); Z87.891 Personal history of nicotine dependence
CPT/HCPCS: 93979

== ENCOUNTER → 2018-09-22 | Outpatient (CLI) | payer MEDICARE, OTHER ==
--- NOTE | 2018-09-22 12:48 | US ---
EXAMINATION TYPE: US scrotum with doppler. Grayscale and color Doppler Duplex imaging performed of t michael scrotum. DATE OF EXAM: 09/22/2018 COMPARISON: December 03, 2017 CLINICAL HISTORY: N50.89 Other specified disorders male genital orga. Per order, follow up of previou s ultrasound. Patient states no pain. EXAM MEASUREMENTS: TESTICLES: Right Testicle: 2.6 x 3.7 x 2.3 cm Left Testicle: 3.6 x 2.5 x 2.3 cm EPIDIDYMIS HEAD: Right Epididymis: 0.7 x 0.5 x 0.9 cm Left Epididymis: 0.7 x 0.9 x 1.1 cm Doppler performed to assess for testicular vascularity; good bilateral color flow and waveforms are s een. There is no evidence of testicular torsion. Presence of hydroceles: bilateral Presence of varicoceles: no IMPRESSION: 1.Right epididymal cystic appearing lesion seen - 0.3 x 0.3 x 0.2 cm. Echogenic lesion seen in lower left teste - 0.2 x 0.3 x 0.2 cm. Nonshadowing echogenic focus seen with twinkling artifact in mid ri ght teste. Possible bowel seen herniating into right scrotal sac.
== END | disposition home or self-care (01) ==
LOC: RADUSWWP 11:27
PROVIDERS: ATTEND Internal Medicine Geriatric Medicine
DX: N50.3 Cyst of epididymis (principal); N50.89 Other specified disorders of the male genital organs
CPT/HCPCS: 76870; 93975

== ENCOUNTER 2018-10-24 06:34 | Emergency (ER) | payer MEDICARE, OTHER ==
[2018-10-24 06:39] VITALS: RESP 18; TEMP 97.6
--- NOTE | 2018-10-24 07:24 | ED ---
General Adult HPI - General Chief complaint: ENT Stated complaint: Bilateral Ear Pain, Rt Ear Bleeding Source: patient, RN notes reviewed Mode of arrival: ambulatory Limitations: no limitations - History of Present Illness Initial comments: This is a 68-year-old male who presents emergency Department complaining that after he used the Q-tip in his ear his left ear started bleeding. Patient states he didn't think he scraped anything. Patient states she's also on Coumadin. Patient denies any previous history of this before. Patient denies any pain severe. Patient states ever since filled up with blood he doesn't hear as well. Patient denies any similar symptoms. Patient denies any recent fever chills. Patient denies any upper respiratory infection. - Related Data Home Medications Medication Instructions Recorded Confirmed Carvedilol [Coreg] 25 mg PO BID 11/02/13 10/24/18 Ranitidine HCl [Zantac] 150 mg PO BID 11/02/13 10/24/18 Warfarin Sodium [Coumadin] 6 mg PO SUMOWEFR 11/02/13 10/24/18 Warfarin Sodium [Coumadin] 3 mg PO TUTHSA 07/15/14 10/24/18 Spironolactone [Aldactone] 50 mg PO DAILY 01/08/18 10/24/18 Atorvastatin [Lipitor] 20 mg PO HS 10/24/18 10/24/18 Febuxostat [Uloric] 40 mg PO DAILY 10/24/18 10/24/18 Fluticasone Nasal Bock [Flonase 2 spr EA NOSTRIL DAILY 10/24/18 10/24/18 Nasal Bock] Irbesartan 300 mg PO DAILY 10/24/18 10/24/18 Sertraline [Zoloft] 25 mg PO DAILY 10/24/18 10/24/18 metFORMIN HCL [Glucophage] 500 mg PO BID 10/24/18 10/24/18 Previous Rx's Medication Instructions Recorded Furosemide [Lasix] 40 mg PO BID #1 tablet 01/11/18 Allergies Allergy/AdvReac Type Severity Reaction Status Date / Time No Known Allergies Allergy Verified 10/24/18 07:11 Review of Systems ROS Statement: Those systems with pertinent positive or pertinent negative responses have been documented in the HPI. ROS Other: All systems not noted in ROS Statement are negative. Past Medical History Past Medical History: Atrial Fibrillation, Heart Failure, COPD, GERD/Reflux, Hyperlipidemia, Hypertension, Respiratory Disorder Additional Past Medical History / Comment(s): Cardiomyopathy with a previous AICD placement, COPD, hypertension, deafness, psoriasis, history of abdominal aortic aneurysm, chronic pain with insertion of a spinal cord stimulator, hypertension, hyperlipidemia History of Any Multi-Drug Resistant Organisms: None Reported Past Surgical History: AICD, Heart Catheterization Additional Past Surgical History / Comment(s): AICD/DEFIBILLATOR. PAIN CLINIC PROCEDURES Past Anesthesia/Blood Transfusion Reactions: No Reported Reaction Type of Cardiac Device: AICD Device Placement Date:: 06/17/2006 Past Psychological History: No Psychological Hx Reported Smoking Status: Current every day smoker Past Alcohol Use History: None Reported Past Drug Use History: None Reported - Past Family History Mother Family Medical History: Unable to Obtain Father Family Medical History: CVA/TIA General Exam - General Exam Comments Initial Comments: NGENERAL Patient is well-developed and well-nourished. Patient is in mild distress. EYES Patient's pupils are equal and round. Extraocular motion is intact ENT Left TM was able to be visualized after I removed a huge blood clot. No signs of infection SKIN Unremarkable NEURO The patient is alert and oriented 3 PYSCH Patient has normal interpersonal interactions. MUSCULOSKELETAL All 4 extremities have full range of motion Limitations: no limitations Course Vital Signs 10/24/18 06:35 Temperature 97.6 F Pulse Rate 97 Respiratory 18 Rate Blood Pressure 135/74 O2 Sat by Pulse 98 Oximetry Medical Decision Making - Medical Decision Making I removed a large blood clot from the patient's left ear canal with a curet. Disposition Clinical Impression: Ear canal abrasion Disposition: HOME SELF-CARE Condition: Good Instructions (If sedation given, give patient instructions): Abrasion (ED) Additional Instructions: Patient should take eardrops as directed. Is patient prescribed a controlled substance at d/c from ED?: No Referrals: Roberto Wong MD [Primary Care Provider] - 1-2 days Time of Disposition: 07:23
[2018-10-24] MEDS: TOBRAMYCIN 0.3% OPHTH OINT 3.5 GM TUBE LEFT EYE STA ×2 (07:39→07:58)
[2018-10-24] MEDS ORDERED: OFLOXACIN 0.3% OPHTH DROPS 5 ML BOTTLE LEFT EAR STA (07:44)
[2018-10-24 08:00] VITALS: BP 127/94; PULSE 75
[2018-10-24] MEDS ORDERED: OFLOXACIN 0.3% OPHTH DROPS 5 ML BOTTLE LEFT EAR SCH (09:00)
== END 2018-10-24 08:02 | disposition home or self-care (01) ==
LOC: EC 06:34
DX: I48.91 Unspecified atrial fibrillation (principal); I11.0 Hypertensive heart disease with heart failure; I50.9 Heart failure, unspecified; J44.9 Chronic obstructive pulmonary disease, unspecified; K21.9 Gastro-esophageal reflux disease without esophagitis; E78.5 Hyperlipidemia, unspecified; I43 Cardiomyopathy in diseases classified elsewhere; F17.200 Nicotine dependence, unspecified, uncomplicated; Z95.810 Presence of automatic (implantable) cardiac defibrillator; Z95.818 Presence of other cardiac implants and grafts; Z53.8 Procedure and treatment not carried out for other reasons; Z79.01 Long term (current) use of anticoagulants; Z79.84 Long term (current) use of oral hypoglycemic drugs; Z79.899 Other long term (current) drug therapy; S00.411A Abrasion of right ear, initial encounter; X58.XXXA Exposure to other specified factors, initial encounter
CPT/HCPCS: 99282

== ENCOUNTER 2019-01-07 12:36 | Emergency (ER) | payer MEDICARE, OTHER ==
[2019-01-07 12:45] VITALS: RESP 18
[2019-01-07] MEDS ORDERED: SODIUM CHLORIDE 0.9% 1,000 ML IV ONE (12:57)
[2019-01-07] MEDS ORDERED: ASPIRIN 81 MG PO STA (12:57)
[2019-01-07] MEDS ORDERED: MECLIZINE 12.5 MG TAB PO STA (12:57)
--- NOTE | 2019-01-07 13:01 | ED ---
General Adult HPI - General Chief complaint: Dizziness Stated complaint: SOB,Blurry Vision Time Seen by Provider: 01/07/19 12:49 Source: patient Mode of arrival: wheelchair Limitations: no limitations - History of Present Illness Initial comments: Patient is a 68-year-old male presents with the chief complaint of sudden onset dizziness, diaphoresis, nausea while at the grocery store. Patient says this happened about an hour and half prior to arrival. Cannot identify any inciting incident. Patient describes his lightheadedness as the room spinning around him. His any previous episodes of the same. There are no aggravating or alleviating factors. He states that his symptoms have improved since onset. Patient is a history of atrial fibrillation, status post pacemaker placement. - Related Data Home Medications Medication Instructions Recorded Confirmed Carvedilol [Coreg] 25 mg PO BID 11/02/13 01/07/19 Ranitidine HCl [Zantac] 150 mg PO BID 11/02/13 01/07/19 Warfarin Sodium [Coumadin] 6 mg PO TUTHSA 11/02/13 01/07/19 Warfarin Sodium [Coumadin] 3 mg PO SUMOWEFR 07/15/14 01/07/19 Atorvastatin [Lipitor] 20 mg PO HS 10/24/18 01/07/19 Febuxostat [Uloric] 40 mg PO DAILY 10/24/18 01/07/19 Sertraline [Zoloft] 25 mg PO DAILY 10/24/18 01/07/19 metFORMIN HCL [Glucophage] 500 mg PO BID 10/24/18 01/07/19 Budesonide-Formot 160-4.5 Mcg 2 puff INHALATION RT-BID 01/07/19 01/07/19 [Symbicort 160-4.5 Mcg Inhaler] Furosemide [Lasix] 40 mg PO Q72H 01/07/19 01/07/19 Pregabalin [Lyrica] 50 mg PO DAILY 01/07/19 01/07/19 Spironolactone 100 mg PO DAILY 01/07/19 01/07/19 Allergies Allergy/AdvReac Type Severity Reaction Status Date / Time No Known Allergies Allergy Verified 01/07/19 13:09 Review of Systems ROS Statement: Those systems with pertinent positive or pertinent negative responses have been documented in the HPI. ROS Other: All systems not noted in ROS Statement are negative. Cardiovascular: Reports: dyspnea on exertion Neurological: Reports: vertigo Past Medical History Past Medical History: Atrial Fibrillation, Heart Failure, COPD, GERD/Reflux, Hyperlipidemia, Hypertension, Respiratory Disorder Additional Past Medical History / Comment(s): Cardiomyopathy with a previous AICD placement, COPD, hypertension, deafness, psoriasis, history of abdominal a ortic aneurysm, chronic pain with insertion of a spinal cord stimulator, hypertension, hyperlipidemia History of Any Multi-Drug Resistant Organisms: None Reported Past Surgical History: AICD, Heart Catheterization Additional Past Surgical History / Comment(s): AICD/DEFIBILLATOR. PAIN CLINIC PROCEDURES Past Anesthesia/Blood Transfusion Reactions: No Reported Reaction Type of Cardiac Device: AICD Device Placement Date:: 06/17/2006 Past Psychological History: No Psychological Hx Reported Smoking Status: Current every day smoker Past Alcohol Use History: None Reported Past Drug Use History: None Reported - Past Family History Mother Family Medical History: Unable to Obtain Father Family Medical History: CVA/TIA General Exam Limitations: no limitations General appearance: alert, in no apparent distress Head exam: Present: atraumatic, normocephalic Eye exam: Present: normal appearance, PERRL, EOMI. Absent: scleral icterus, conjunctival injection Pupils: Present: normal accommodation ENT exam: Present: normal exam Neck exam: Present: normal inspection Respiratory exam: Present: normal lung sounds bilaterally. Absent: respiratory distress, wheezes Cardiovascular Exam: Present: regular rate, normal rhythm GI/Abdominal exam: Present: soft. Absent: distended, tenderness Rectal exam: Present: deferred Extremities exam: Present: normal inspection Back exam: Present: normal inspection Neurological exam: Present: alert, oriented X3, CN II-XII intact, other (finger to nose testing WNL ) Psychiatric exam: Present: normal affect, normal mood Skin exam: Present: warm, dry, intact Course Vital Signs 01/07/19 01/07/19 01/07/19 12:40 14:08 15:09 Temperature 98.5 F Pulse Rate 69 66 62 Respiratory 18 18 18 Rate Blood Pressure 86/55 95/59 107/61 O2 Sat by Pulse 95 95 96 Oximetry Medical Decision Making - Medical Decision Making Patient presents with a chief complaint of a near syncopal episode associated with lightheadedness, diaphoresis, and nausea. On initial evaluation, vital signs show hypotension but are otherwise stable. Patient is no acute distress. Patient be evaluated with basic blood including cardiac enzymes, chest x-ray. He was given IV fluid, and Antivert. Patient given aspirin. EKG performed at 1259 shows sinus rhythm with a first-degree block, no acute signs of ischemia, segments otherwise within normal limits. EKG is similar to previous study performed on 01/08/2018. 4 PM Lab evaluation of this patient is unremarkable. INR is 2.3 which is within therapeutic range. Labs are showing a creatinine of 1.5 today. Review of previous value shows the patient has baseline around 0.8 0.9. Electrolytes appear to be within normal limits. I discussed the findings with the patient, I offered admission for further evaluation of kidney function but patient declines. He would rather follow up with his primary care doctor. He is instructed to follow-up in 1-2 days, return to the ED if symptoms worsen or change. Prior to discharge, the patient was ambulated around the emergency department, he is able to ambulate well without assistance. - Lab Data Result diagrams: 01/07/19 13:15 01/07/19 13:15 Lab Results 01/07/19 01/07/19 01/07/19 Range/Units 13:15 13:15 13:15 WBC 8.6 (3.8-10.6) k/uL RBC 3.94 L (4.30-5.90) m/uL Hgb 12.2 L (13.0-17.5) gm/dL Hct 37.2 L (39.0-53.0) % MCV 94.4 (80.0-100.0) fL MCH 30.9 (25.0-35.0) pg MCHC 32.7 (31.0-37.0) g/dL RDW 13.8 (11.5-15.5) % Plt Count 204 (150-450) k/uL Neutrophils % 68 % Lymphocytes % 22 % Monocytes % 7 % Eosinophils % 1 % Basophils % 0 % Neutrophils # 5.9 (1.3-7.7) k/uL Lymphocytes # 1.9 (1.0-4.8) k/uL Monocytes # 0.6 (0-1.0) k/uL Eosinophils # 0.1 (0-0.7) k/uL Basophils # 0.0 (0-0.2) k/uL PT (9.0-12.0) sec INR (<1.2) Sodium 141 (137-145) mmol/L Potassium 4.8 (3.5-5.1) mmol/L Chloride 110 H (98-107) mmol/L Carbon Dioxide 21 L (22-30) mmol/L Anion Gap 10 mmol/L BUN 38 H (9-20) mg/dL Creatinine 1.50 H (0.66-1.25) mg/dL Est GFR (CKD-EPI)AfAm 55 (>60 ml/min/1.73 sqM) Est GFR (CKD-EPI)NonAf 48 (>60 ml/min/1.73 sqM) Glucose 105 H (74-99) mg/dL POC Glucose (mg/dL) (75-99) mg/dL POC Glu Bowling Ball Molder ID Calcium 8.6 (8.4-10.2) mg/dL Troponin I (0.000-0.034) ng/mL NT-Pro-B Natriuret Pep 531 pg/mL TSH 0.890 (0.465-4.680) mIU/L 01/07/19 01/07/19 01/07/19 Range/Units 13:15 13:15 13:22 WBC (3.8-10.6) k/uL RBC (4.30-5.90) m/uL Hgb (13.0-17.5) gm/dL Hct (39.0-53.0) % MCV (80.0-100.0) fL MCH (25.0-35.0) pg MCHC (31.0-37.0) g/dL RDW (11.5-15.5) % Plt Count (150-450) k/uL Neutrophils % % Lymphocytes % % Monocytes % % Eosinophils % % Basophils % % Neutrophils # (1.3-7.7) k/uL Lymphocytes # (1.0-4.8) k/uL Monocytes # (0-1.0) k/uL Eosinophils # (0-0.7) k/uL Basophils # (0-0.2) k/uL PT 22.6 H (9.0-12.0) sec INR 2.3 H (<1.2) Sodium (137-145) mmol/L Potassium (3.5-5.1) mmol/L Chloride (98-107) mmol/L Carbon Dioxide (22-30) mmol/L Anion Gap mmol/L BUN (9-20) mg/dL Creatinine (0.66-1.25) mg/dL Est GFR (CKD-EPI)AfAm (>60 ml/min/1.73 sqM) Est GFR (CKD-EPI)NonAf (>60 ml/min/1.73 sqM) Glucose (74-99) mg/dL POC Glucose (mg/dL) 107 H (75-99) mg/dL POC Glu Bowling Ball Molder ID Lyly Root Calcium (8.4-10.2) mg/dL Troponin I <0.012 (0.000-0.034) ng/mL NT-Pro-B Natriuret Pep pg/mL TSH (0.465-4.680) mIU/L Disposition Clinical Impression: Dehydration, NEIL (acute kidney injury) Disposition: HOME SELF-CARE Condition: Fair Instructions (If sedation given, give patient instructions): Dehydration (ED) Is patient prescribed a controlled substance at d/c from ED?: No Referrals: Umang Slade MD [Primary Care Provider] - 1-2 days
[2019-01-07 13:25] LABS: Basophils % (A) 0 %; Eosinophils # (A) 0.1 k/uL (0-0.7); Eosinophils % (A) 1 %; HCT 37.2 % (39.0-53.0); HGB 12.2 gm/dL (13.0-17.5); Lymphocytes # (A) 1.9 k/uL (1.0-4.8); Lymphocytes % (A) 22 %; MCH 30.9 pg (25.0-35.0); MCHC 32.7 g/dL (31.0-37.0); MCV 94.4 fL (80.0-100.0); Monocytes # (A) 0.6 k/uL (0-1.0); Monocytes % (A) 7 %; Neutrophils # (A) 5.9 k/uL (1.3-7.7); Neutrophils % (A) 68 %; Platelet Count 204 k/uL (150-450); RBC 3.94 m/uL (4.30-5.90); RDW 13.8 % (11.5-15.5); WBC 8.6 k/uL (3.8-10.6)
[2019-01-07 13:33] LABS: INR 2.3 (<1.2); Prothrombin Time 22.6 sec (9.0-12.0)
[2019-01-07 13:34] LABS: Glucose,Whole Blood 107 mg/dL (75-99)
[2019-01-07 13:46] LABS: Calcium 8.6 mg/dL (8.4-10.2); Potassium 4.8 mmol/L (3.5-5.1)
--- NOTE | 2019-01-07 13:59 | XR ---
EXAMINATION TYPE: XR chest 2V DATE OF EXAM: 01/07/2019 COMPARISON: 01/08/2018 INDICATION: Pain revision short of breath TECHNIQUE: Frontal and lateral views of the chest are obtained. FINDINGS: The heart size is normal. The pulmonary vasculature is normal. The lungs are clear. There is hyperinflation flattening the diaphragms compatible COPD. Pacemaker ov erlies left chest. Findings are stable from comparison. IMPRESSION: 1. No acute pulmonary process. 2. COPD
[2019-01-07 16:15] VITALS: BP 108/72; PULSE 63; TEMP 98.7
== END 2019-01-07 16:17 | disposition home or self-care (01) ==
LOC: EC 12:36
DX: E86.0 Dehydration (principal); N17.9 Acute kidney failure, unspecified; I44.0 Atrioventricular block, first degree; I48.91 Unspecified atrial fibrillation; I11.0 Hypertensive heart disease with heart failure; I50.9 Heart failure, unspecified; J44.9 Chronic obstructive pulmonary disease, unspecified; K21.9 Gastro-esophageal reflux disease without esophagitis; H91.90 Unspecified hearing loss, unspecified ear; G89.29 Other chronic pain; F17.200 Nicotine dependence, unspecified, uncomplicated; Z79.01 Long term (current) use of anticoagulants; Z79.51 Long term (current) use of inhaled steroids; Z79.84 Long term (current) use of oral hypoglycemic drugs; Z79.899 Other long term (current) drug therapy; Z95.0 Presence of cardiac pacemaker; Z96.89 Presence of other specified functional implants; Z53.20 Procedure and treatment not carried out because of patient's decision for unspecified reasons
CPT/HCPCS: 36415; 71046; 80048; 83880; 84443; 84484; 85025; 85610; 93005; 96360; 96361; 99284

== ENCOUNTER → 2019-01-10 | Outpatient (CLI) | payer MEDICARE, OTHER ==
--- NOTE | 2019-01-10 15:01 | CT ---
EXAMINATION TYPE: CT lumbar spine w con DATE OF EXAM: 01/10/2019 COMPARISON: CT lumbar spine November 15, 2015 HISTORY: Low back pain with Left leg numbness CT DLP: 2666 mGycm Automated exposure control for dose reduction was used. CONTRAST: CT scan of the lumbar is performed with IV Contrast, patient injected with 80 mL of Isovue 300. Enhanced CT of the lumbar spine was performed. Bone and soft tissue window settings are submitted as well as coronal and sagittal reconstructions. 5 lumbar type vertebra are redemonstrated. Vertebral body heights are maintained. There is multilevel disc space narrowing with relative sparing of the L4-L5 level. There is moderate disc space narrowin g L1-L2 level with mild anterior and posterior spurring. There is moderate to advanced disc space clare rowing with moderate anterior and posterior spurring L5-S1 level redemonstrated. Axial images at T12-L1 level remain within normal limits. Axial images at L1-L2 level redemonstrate mild broad disc bulge effacing the anterior thecal sac and causing mild bilateral intervertebral foraminal narrowing. Axial images at L2-L3 level mild broad disc bulge mildly effacing the anterior thecal sac, bilateral neural foramina are minimally narrowed. No significant change from prior. Axial images at the L3-L4 level show mild to moderate broad disc bulge effacing the anterior thecal s ac with mild facet degenerative changes bilaterally and mild left greater than right bilateral inferi or neural foraminal narrowing. No significant change from prior. Axial images at L4-L5 level show [id number] facet degenerative changes bilaterally with mild-to -moderate broad disc bulge effacing the anterior thecal sac and causing mild bilateral anterior infer ior neural foraminal narrowing. No significant change from prior. Axial images at the L5-S1 level show [id number] facet degenerative changes bilaterally. There i s small central disc protrusion seen without spinal canal is preserved. There is mild to moderate morgan ateral neural foraminal narrowing due to marginal spurring. No suspicious enhancement is seen. There is moderate calcified plaque of the aorta extending into bra nch vessels with some ectasia but no greater than 3 cm aneurysmal change. Visualized liver is hypoden se suggesting fatty infiltration. IMPRESSION: Multilevel degenerative changes in the lumbar spine as detailed above without significant progression from 2016 CT.
== END | disposition home or self-care (01) ==
LOC: RADCTMAIN 12:51
PROVIDERS: ATTEND Internal Medicine
DX: M47.816 Spondylosis without myelopathy or radiculopathy, lumbar region (principal); M54.5 Low back pain
CPT/HCPCS: 82565; 84520; 72132; 36415; Q9967

== ENCOUNTER → 2019-02-08 | Outpatient (CLI) | payer MEDICARE, OTHER ==
[2019-02-08 13:37] VITALS: BP 144/79; PULSE 56; RESP 16
--- NOTE | 2019-02-08 15:51 | P.PAINCN ---
History of Present Illness - Reason for Consult Consult date: 02/08/19 - History of Present Illness Chief complaint: Low back pain HPI: This is a 68-year-old male on warfarin, who presents for low back pain. He has been seen by her clinic several years ago around to 2013. He does not remember exactly when his back pain started but started several years ago. Has been worsening since then the pain is worse with standing and better with sitting and lying down. He describes it as an aching pain. The pain is a 5-6 and can go up to 10. He cannot stand 10 minutes to do dishes. He describes some leg numbness at concern positions. He states his leg is very painful. When asked what he takes for pain he cannot recollect. Review of systems is negative for chest pain, shortness of breath, changes in vision, changes in hearing, new onset weakness, abdominal pain, diarrhea, extreme fatigue, malaise, fever, skin changes, homicidal or suicidal ideation, or bowel or bladder incontinence. Past Medical History Past Medical History: Atrial Fibrillation, Heart Failure, COPD, GERD/Reflux, Hyperlipidemia, Hypertension, Respiratory Disorder, Skin Disorder Additional Past Medical History / Comment(s): Cardiomyopathy with a AICD placement, rt ear paimiut, psoriasis, history of abdominal aortic aneurysm, chronic pain with insertion of a spinal cord stimulator History of Any Multi-Drug Resistant Organisms: None Reported Past Surgical History: AICD, Heart Catheterization Additional Past Surgical History / Comment(s): AICD/DEFIBILLATOR. PAIN CLINIC PROCEDURES Past Anesthesia/Blood Transfusion Reactions: No Reported Reaction Type of Cardiac Device: AICD Device Placement Date:: 06/17/2006- Smoking Status: Current every day smoker - Past Family History Mother Family Medical History: No Reported History Father Family Medical History: CVA/TIA Medications and Allergies Home Medications Medication Instructions Recorded Confirmed Type Carvedilol [Coreg] 25 mg PO BID 11/02/13 02/07/19 History Ranitidine HCl [Zantac] 150 mg PO BID 11/02/13 02/07/19 History Warfarin Sodium [Coumadin] 6 mg PO TUTHSA 11/02/13 02/07/19 History Warfarin Sodium [Coumadin] 3 mg PO SUMOWEFR 07/15/14 02/07/19 History Atorvastatin [Lipitor] 20 mg PO HS 10/24/18 02/07/19 History Febuxostat [Uloric] 40 mg PO DAILY 10/24/18 02/07/19 History Sertraline [Zoloft] 25 mg PO DAILY 10/24/18 02/07/19 History metFORMIN HCL [Glucophage] 500 mg PO BID 10/24/18 02/07/19 History Budesonide-Formot 160-4.5 Mcg 2 puff INHALATION RT-BID PRN 01/07/19 02/07/19 History [Symbicort 160-4.5 Mcg Inhaler] Furosemide [Lasix] 40 mg PO DAILY PRN 01/07/19 02/07/19 History Pregabalin [Lyrica] 50 mg PO DAILY 01/07/19 02/07/19 History Spironolactone 100 mg PO DAILY 01/07/19 02/07/19 History Allergies Allergy/AdvReac Type Severity Reaction Status Date / Time No Known Allergies Allergy Verified 02/07/19 08:45 Physical Exam Vitals: Vital Signs Pulse Resp BP Pulse Ox 02/08/19 13:29 56 L 16 144/79 97 Vital Signs: Reviewed in EMR GENERAL: Well appearing, in no acute distress, PSYCH: Mood and affect is appropriate. Awake, alert, and oriented SKIN: Skin color, texture, turgor normal, no rashes or lesions HEENT: Normocephalic, atraumatic. EOM intact CV: No pedal edema RESP: Respirations are unlabored, no audible wheezing GI: Abdomen non-distended MUSCULOSKELETAL: Bilateral upper and lower extremity strength is normal and symmetric. No atrophy or tone abnormalities are noted. Lumbar spine: Positive pain to palpation over the lumbar spine and paraspinous muscles. ( for pain with facet loading and back extension/rotation. Buttocks: No pain to palpation over the PSIS, Taiwo test is negative bilaterally Extremities: Peripheral joint ROM is full and pain free without obvious ins tability or laxity in all four extremities. No edema or skin discolorations noted. Gait: Gait is anantalgic NEUR: Bilateral upper and lower extremity coordination and muscle stretch reflexes are physiologic and symmetric. . No loss of sensation is noted. Cranial nerves are grossly intact. Results Comments: CT of lumbar spine reviewed please see EMR Assessment and Plan Assessment: This is a 68-year-old male who presents primary axial-type back pain. Symptoms are consistent with lumbar facet arthropathy Assessment and plan: 1. 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 DDD 1. Interventions bilateral diagnostic medial branch blocks at L3-L4 and L5 2. Physical Therapy: Recommended physical therapy but he isn't interested 3. Medications: Asked him to take Tylenol [id number] 4. Imaging reviewed 5. Referrals none 6. Follow up: for his procedures. , PQRS Measure Charge Sheet PQRS Narrative: Smoking Status Current every day smoker Narcotic Agreement Date Signed 03/29/13 Blood Pressure 144/79 Pain Intensity [None] 6 Scale Used Numeric (1 - 10) Hx Alcohol Use (MH) No Home Medications: Ambulatory Orders Carvedilol [Coreg] 25 mg PO BID 11/02/13 Ranitidine HCl [Zantac] 150 mg PO BID 11/02/13 Warfarin Sodium [Coumadin] 6 mg PO TUTHSA 11/02/13 Warfarin Sodium [Coumadin] 3 mg PO SUMOWEFR 07/15/14 Atorvastatin [Lipitor] 20 mg PO HS 10/24/18 Febuxostat [Uloric] 40 mg PO DAILY 10/24/18 Sertraline [Zoloft] 25 mg PO DAILY 10/24/18 metFORMIN HCL [Glucophage] 500 mg PO BID 10/24/18 Budesonide-Formot 160-4.5 Mcg [Symbicort 160-4.5 Mcg Inhaler] 2 puff INHALATION RT-BID PRN 01/07/19 Furosemide [Lasix] 40 mg PO DAILY PRN 01/07/19 Pregabalin [Lyrica] 50 mg PO DAILY 01/07/19 Spironolactone 100 mg PO DAILY 01/07/19
== END ==
LOC: PNWHC3 11:23
PROVIDERS: ATTEND Student in an Organized Health Care Education/Training Program
DX: M47.816 Spondylosis without myelopathy or radiculopathy, lumbar region (principal); M51.36 Other intervertebral disc degeneration, lumbar region; F17.200 Nicotine dependence, unspecified, uncomplicated; I48.91 Unspecified atrial fibrillation; I50.9 Heart failure, unspecified; I10 Essential (primary) hypertension; E78.5 Hyperlipidemia, unspecified; J44.9 Chronic obstructive pulmonary disease, unspecified; K21.9 Gastro-esophageal reflux disease without esophagitis; Z79.899 Other long term (current) drug therapy; Z79.84 Long term (current) use of oral hypoglycemic drugs; Z79.01 Long term (current) use of anticoagulants
CPT/HCPCS: 99211

== ENCOUNTER 2019-02-15 08:15 | Day surgery (SDC) | payer MEDICARE, OTHER ==
[2019-02-09 14:38] VITALS: BMI 40.1
[2019-02-15 08:36] VITALS: TEMP 96.5
[2019-02-15] MEDS ORDERED: LIDOCAINE 1% 20 ML VIAL (10MG/ML) FOR IV START INTRADERMA ONE (08:47)
--- NOTE | 2019-02-15 10:20 | P.PCN ---
Date of Procedure: 02/15/19 Procedure(s) Performed: PREOPERATIVE DIAGNOSIS : Lumbar spondylosis with Facet Arthropathy without myelopathy POSTOPERATIVE DIAGNOSIS: same PROCEDURE: First Diagnostic lumbar medial branch block with fluoroscopy at L3, L4, L5 bilateral which covers facets L4-5 and L5-S1 ANESTHESIA: Local anesthetic; moderate IV sedation with Versed 1 mg Fluoroscopy was used for the procedure and images were saved in the radiology portion of the chart. Surgeon: Sandra Mcdaniel MD PROCEDURE INDICATION: Lumbar back pain without radiculopathy, not responsive to conservative management. PROCEDURE DESCRIPTION: the patient was seen and identified in the preop holding area , risks and benefits and possible complications of the procedure and alternatives were discussed with the patient, and the patient agreed to proceed with the procedure and signed the consent . IV was started , vital signs were monitored during the procedure and fluoroscopy was used to maximize the benefit and accuracy of the needle placement, and sedation was given to decrease patient anxiety. Patient was taken to the procedure room and placed in prone position. The lumbar region was prepped using chlorhexidineX-2. Under strict sterile technique using AP fluoroscopy the bilateral sacral ala were identified and using ipsilateral oblique fluoroscopy ,the junction of the transverse process and the superior articulating process of the L4, L5 vertebra which corresponds to the fluoroscopy image of the eye of the Jabier dog for the medial branches were identified. Subsequently, after local infiltration of skin with lidocaine 1% 0.2 mL at each level , a 22-guage 5" Quincke-type needle was placed at the junction of the base of the transverse process and the superior articular process at the appropriate level as well as the sacral ala, and the needle was advanced until the periosteum contacted, needle placement confirmed with AP and oblique fluoroscopy, 0.2 mL of Isovue 200 per level was injected which revealed no vascular uptake and after negative aspiration, 0.5 mL of ropivacaine 0.5% was injected at each level and the needle subsequently removed . At the end of the procedure and the needles were removed and a bandage applied after the skin was cleaned. The patient was taken to recovery room in stable condition and monitors in the recovery room for 20-30 minutes and discharged home in stable condition after discharge criteria met and patient will follow up for repeat procedure in 2 weeks EBL: Minimal COMPLICATION: None.
[2019-02-15] MEDS ORDERED: IV FLUID CONTINUATION 1,000 ML IV ONE (10:26)
[2019-02-15 10:41] VITALS: BP 124/68; PULSE 66; RESP 18
--- NOTE | 2019-02-15 13:55 | FL ---
Fluoroscopy HISTORY: Pain 8 seconds fluoroscopy time supplied to the referring clinician. 2 intraoperative C-arm images doc ument the procedure. See dictated report from anesthesia.
== END 2019-02-15 10:55 | disposition home or self-care (01) ==
LOC: ORPAIN 08:15
PROVIDERS: ATTEND Anesthesiology
DX: G89.29 Other chronic pain (principal); M47.816 Spondylosis without myelopathy or radiculopathy, lumbar region; I48.91 Unspecified atrial fibrillation; I11.0 Hypertensive heart disease with heart failure; I50.9 Heart failure, unspecified; I43 Cardiomyopathy in diseases classified elsewhere; E78.5 Hyperlipidemia, unspecified; J44.9 Chronic obstructive pulmonary disease, unspecified; K21.9 Gastro-esophageal reflux disease without esophagitis; L40.9 Psoriasis, unspecified; H91.91 Unspecified hearing loss, right ear; F17.200 Nicotine dependence, unspecified, uncomplicated; Z95.810 Presence of automatic (implantable) cardiac defibrillator; Z86.79 Personal history of other diseases of the circulatory system; Z79.01 Long term (current) use of anticoagulants; Z79.51 Long term (current) use of inhaled steroids; Z79.84 Long term (current) use of oral hypoglycemic drugs; Z79.899 Other long term (current) drug therapy; Z96.89 Presence of other specified functional implants; Z82.3 Family history of stroke
CPT/HCPCS: 64493; 64494; J2250; Q9966; 99152

== ENCOUNTER 2019-03-06 07:44 | Day surgery (SDC) | payer MEDICARE, OTHER ==
[2019-02-28 15:28] VITALS: BMI 40.1
[2019-03-06] MEDS ORDERED: LIDOCAINE 1% 20 ML VIAL (10MG/ML) FOR IV START INTRADERMA ONE (08:53)
[2019-03-06 09:03] LABS: Glucose,Whole Blood 93 mg/dL (75-99)
--- NOTE | 2019-03-06 09:53 | P.PCN ---
Date of Procedure: 03/06/19 Procedure(s) Performed: PREOPERATIVE DIAGNOSIS : Lumbar spondylosis with Facet Arthropathy without myelopathy POSTOPERATIVE DIAGNOSIS: same PROCEDURE: second Diagnostic lumbar medial branch block with fluoroscopy at L3, L4, L5 bilateral which covers facets L4-5 and L5-S1 ANESTHESIA: Local anesthetic; moderate IV sedation with Versed 2 mg, and fentanyl 50 g Fluoroscopy was used for the procedure and images were saved in the radiology portion of the chart. Surgeon: Sandra Mcdaniel MD PROCEDURE INDICATION: Lumbar back pain without radiculopathy, not responsive to conservative management. PROCEDURE DESCRIPTION: the patient was seen and identified in the preop holding area , risks and benefits and possible complications of the procedure and alternatives were discussed with the patient, and the patient agreed to proceed with the procedure and signed the consent . IV was started , vital signs were monitored during the procedure and fluoroscopy was used to maximize the benefit and accuracy of the needle placement, and sedation was given to decrease patient anxiety. Patient was taken to the procedure room and placed in prone position. The lumbar region was prepped using chlorhexidineX-2. Under strict sterile technique using AP fluoroscopy the bilateral sacral ala were identified and using ipsilateral oblique fluoroscopy ,the junction of the transverse process and the superior articulating process of the right L4, L5 vertebra which corresponds to the fluoroscopy image of the eye of the Jabier dog for the medial branches were identified. Subsequently, after local infiltration of skin with lidocaine 1% 0.2 mL at each level , a 25-guage 5" Quincke-type needle was pl aced at the junction of the base of the transverse process and the superior articular process at the appropriate level as well as the sacral ala, and the needle was advanced until the periosteum contacted, needle placement confirmed with AP and oblique fluoroscopy, after negative aspiration, ropivacaine 0.5% 3 mL and 40 mg of Depo-Medrol mixed together , and half ml of the mixture was injected at each level after negative aspiration , and in the same procedure was repeated for the left side, L3, L4, L5 and the needle subsequently removed . At the end of the procedure and the needles were removed and a bandage applied after the skin was cleaned. The patient was taken to recovery room in stable condition and monitors in the recovery room for 20-30 minutes and discharged home in stable condition after discharge criteria met and patient will follow up for repeat procedure in 2 weeks EBL: Minimal COMPLICATION: None.
[2019-03-06] MEDS ORDERED: LACTATED RINGERS 1,000 ML IV ONE (09:54)
--- NOTE | 2019-03-06 10:04 | FL ---
EXAMINATION TYPE: FL guided pain mgmt statistic DATE OF EXAM: 03/06/2019 HISTORY: Flouroscopy time 15 seconds of fluoroscopy provided. IMPRESSION: 1. Fluoroscopy time.
[2019-03-06 10:14] VITALS: BP 111/72; PULSE 55; RESP 16
== END 2019-03-06 10:42 | disposition home or self-care (01) ==
LOC: ORPAIN 07:44
PROVIDERS: ATTEND Specialist
DX: M47.816 Spondylosis without myelopathy or radiculopathy, lumbar region (principal)
CPT/HCPCS: 64493; 64494; J2250; J1030; J3010; 99152

== ENCOUNTER → 2019-03-20 | Outpatient (CLI) | payer MEDICARE, OTHER ==
[2019-03-20 13:23] VITALS: BP 147/86; PULSE 56; RESP 16
--- NOTE | 2019-03-20 14:16 | P.PN ---
Subjective Progress Note Date: 03/20/19 This is a follow-up visit for this 68 years old male with a chronic history of severe low back pain, he is taking some lumbar spondylosis with lumbar facet arthropathy, recently we have done diagnostic medial branch block lumbar area L3 , L4, L5, X2 and patient reported that his pain before the first diagnostic block was 7/10 decreased to 0/10, and the pain relief was for short-term and he gets similar result after the second diagnostic medial branch block, patient continued to be able to ambulate without difficulty he denies any fever or night sweats he denies any motor or sensory deficit, Objective - Vital Signs Vital signs: Vital Signs Temp Pulse 56 L 03/20/19 13:12 Resp 16 03/20/19 13:12 BP 147/86 03/20/19 13:12 Pulse Ox - Exam Physical Examinations : -Constitutiona : Cooperative , not in acute distress . -HEENT : nech : supple , no Lymphadenopathy , normal thyroid size . eyes : no ptosis , no icterus, no photophobia . ENT : normal of hearing , normal oropharynx , no Thrush . - Respiratory : Chest clear to auscultations Bilaterally , no wheezing , no Rhonchi . - Cardiovascula : regular rate and rhythem , S1 , S2 , no S3 , no S4. - Gastrointestina : abdomen soft no tenderness , bowel sounds , no organomegally . - Genitourinary : Defferred . - neurologic : Cranial nerve II to XII intact , no focal neurological deffecit . -psychatric : alert , oriented X 3 , appropriate affect , intact judgment and insight . -Lymphatic : no Lymphadenopathy . - musculoskeltal : Lumber spine moter stegnth lower extremities ,thigh and legs 5/5 Right side , 5/5 Left side deep tendon reflexes : normal Knee Jerk , normal ankle Jerk positive lumber facet Loading Test Assessment and Plan Plan: Assessment and plan= chronic severe low back pain secondary to lumbar spondylosis and lumbar condition to this disease Patient had a positive result after the diagnostic medial branch block lumbar area L 3, L4, and L5 bilaterally. 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
== END ==
LOC: PNWHC3 12:19
PROVIDERS: ATTEND Specialist
DX: G89.29 Other chronic pain (principal); M47.816 Spondylosis without myelopathy or radiculopathy, lumbar region; M54.5 Low back pain; Z79.01 Long term (current) use of anticoagulants
CPT/HCPCS: 99211

== ENCOUNTER 2019-04-03 08:48 | Day surgery (SDC) | payer MEDICARE, OTHER ==
[2019-03-29 15:45] VITALS: BMI 41.5
[2019-04-03 09:28] VITALS: RESP 20; TEMP 97.1
[2019-04-03 09:45] LABS: Glucose,Whole Blood 104 mg/dL (75-99)
[2019-04-03 10:55] LABS: INR 1.1 (<1.2); Prothrombin Time 11.4 sec (9.0-12.0)
--- NOTE | 2019-04-03 11:56 | P.PCN ---
Date of Procedure: 04/03/19 Surgeon: Pam Renteria Pathology: none sent Condition: stable Disposition: PACU Description of Procedure: PREOPERATIVE DIAGNOSIS: Lumbar spondylosis without myelopathy, morbid obesity POSTOPERATIVE DIAGNOSIS: Lumbar spondylosis without myelopathy,morbid obesity PROCEDURES : Left Radiofrequency thermocoagulation L3-L4, L4-L5, and L5-S1 medial branch, with fluoroscopic guidance ANESTHESIA: IV moderate conscious sedation with versed and fentanyl and local infiltration with lidocaine 1% 5 ml EBL: Minimal PROCEDURE INDICATION: The patient with low back pain secondary to lumbar facet arthropathy who had more than 50% relief of her pain with previous diagnostic lumbar medial branch block with bupivacaine. PROCEDURE DESCRIPTION / TECHNIQUE: The patient was seen and identified in the preoperative area. Risks, benefits, complications, including but not limited to risk of infection ,bleeding , allergic reactions to the medications and no complete pain relief , and alternatives were discussed with the patient, the patient agreed to proceed with the procedure and signed the consent. IV was started. Vital signs remained stable throughout the procedure. The patient has an AICD. Patient was taken to the OR and time out was completed. The patient was placed in the prone position on the procedure table. The lumber area was prepped and draped in the usual sterile fashion. . Vital signs were closely monitored during the procedure .IV sedation was used during the procedure to decrease patients anxiety. The target points were identified as follows: For the L5-S1 level which corresp onds to the dorsal ramus of L5 the target point was at the superior medial aspect of the sacral ala on the ---- side of the spine on the AP view of fluoroscopy and for the L3, and L4 medial branches the target points were at the connection between the transverse process and the superior articular process of L4, and L5 vertebra respectively on the left oblique view of fluoroscopy. skin was marked, and localized with 1% lidocaineat these points. Subsequently, an 18 [id number] radiofrequency needles with a 10-mm curved active tips were advanced guided by fluoroscopy to each of the target points mentioned above in a superior medial direction to get the active tips as parallel as possible to the medial branches tracks. AP, oblique, and lateral views of fluoroscopy were used to verify needle tips position. Each level then underwent motor testing at 2.5 Hz and 0 to 3 volt with local stimulation, but no radicular symptoms down the legs. Thereafter radiofrequency thermocoagulation at 80 degrees celsius for 90 seconds after injecting 1 ml of PF Marcaine 0.5%(3 mls) with 40 mg of Kenalog. The residency ablation was done one needle at the time. At the end of the procedure, the skin was cleansed and bandages were applied. COMPLICATIONS: No acute complications. DISPOSITION / PLANS: The patient was placed in a supine position and transferred to the recovery area in a stable condition for observation and was discharged from the recovery room after meeting discharge criteria. Home discharge instructions given to the patient by the staff. The patient was reexamined prior to discharge. The patient will schedule a follow up in the clinic in 2-4 weeks.
[2019-04-03] MEDS ORDERED: LACTATED RINGERS 1,000 ML IV ONE (12:03)
[2019-04-03 12:23] VITALS: BP 153/83; PULSE 60
--- NOTE | 2019-04-03 14:31 | FL ---
Fluoroscopy HISTORY: Pain 17 seconds fluoroscopy time supplied to the referring clinician. 3 intraoperative C-arm images docum ent the procedure. See dictated report from anesthesia.
== END 2019-04-03 12:31 | disposition home or self-care (01) ==
LOC: ORPAIN 08:48
PROVIDERS: ATTEND Anesthesiology
DX: G89.29 Other chronic pain (principal); M47.816 Spondylosis without myelopathy or radiculopathy, lumbar region; E66.01 Morbid (severe) obesity due to excess calories; Z68.41 Body mass index [BMI] 40.0-44.9, adult; Z79.01 Long term (current) use of anticoagulants; Z95.810 Presence of automatic (implantable) cardiac defibrillator
CPT/HCPCS: 85610; 64635; 64636; J2250; J3301; J3010; 99152

== ENCOUNTER → 2019-04-26 | Outpatient (CLI) | payer MEDICARE, OTHER ==
--- NOTE | 2019-04-26 12:30 | XR ---
EXAMINATION TYPE: XR sinus DATE OF EXAM: 04/26/2019 CLINICAL HISTORY: Facial pain , headache. TECHNIQUE: Chauhan, Blas, and lateral image of the skull are obtained. COMPARISON: None. FINDINGS: Postsurgical changes are overlying the left orbit. Remaining osseous structures intact. Noemi ears to be reduced aeration of the maxillary sinuses greater on the left. Nasal septal deviation note d. No air-fluid levels. IMPRESSION: Correlate for chronic maxillary sinusitis greater on the left
== END | disposition home or self-care (01) ==
LOC: RADXRMAIN 10:40
PROVIDERS: ATTEND Internal Medicine
DX: J32.9 Chronic sinusitis, unspecified (principal)
CPT/HCPCS: 70220

== ENCOUNTER → 2019-04-30 | Outpatient (CLI) | payer MEDICARE, OTHER ==
[2019-04-30 09:18] LABS: Prothrombin Time 10.6 sec (9.0-12.0)
== END | disposition home or self-care (01) ==
LOC: LABMAIN 08:50
PROVIDERS: ATTEND Specialist
DX: Z51.81 Encounter for therapeutic drug level monitoring (principal); Z79.01 Long term (current) use of anticoagulants
CPT/HCPCS: 36415; 85610

== ENCOUNTER 2019-05-01 07:15 | Day surgery (SDC) | payer MEDICARE, OTHER ==
[2019-04-27 14:04] VITALS: BMI 40.7
[2019-05-01] MEDS ORDERED: LIDOCAINE 1% 20 ML VIAL (10MG/ML) FOR IV START INTRADERMA ONE (08:01)
[2019-05-01 08:07] VITALS: TEMP 96.9
[2019-05-01 08:07] LABS: Glucose,Whole Blood 102 mg/dL (75-99)
[2019-05-01] MEDS ORDERED: LACTATED RINGERS 1,000 ML IV ONE (09:26)
[2019-05-01 09:29] VITALS: RESP 16
[2019-05-01 09:47] VITALS: BP 135/81; PULSE 56
--- NOTE | 2019-05-01 10:14 | FL ---
EXAMINATION TYPE: FL guided pain mgmt statistic DATE OF EXAM: 05/01/2019 HISTORY: Flouroscopy time 15 seconds of fluoroscopy provided. IMPRESSION: 1. Fluoroscopy time.
--- NOTE | 2019-05-01 11:12 | P.PCN ---
Date of Procedure: 05/01/19 Procedure(s) Performed: PREOPERATIVE DIAGNOSIS: Lumbar Spondylosis POSTOPERATIVE DIAGNOSIS: Same PROCEDURES: Radiofrequency ablation of the L3, L4, L5 medial branches with fluoroscopic guidance on the right side SURGEON: Sandra Mcdaniel MD. ANESTHESIA: Lidocaine 1% 5 mL, Moderate sedation with intravenous Versed and fentanyl, sedation time 20 minute EBL: Minimal Fluoroscopy was used for the procedure and images were saved in the radiology portion of the chart. PROCEDURE INDICATION: The patient with low back pain secondary to lumbar facet arthropathy who had more than 50% relief of pain with previous diagnostic lumbar medial branch block X2. PROCEDURE DESCRIPTION / TECHNIQUE: The patient was seen and identified in the preoperative area. Risks, benefits, complications, including but not limited to risk of infection ,bleeding , allergic reactions to the medications and incomplete pain relief , and alternatives were discussed with the patient, the patient agreed to proceed with the procedure and signed the consent. IV was started. The operative site was marked. Patient was taken to the OR and time out was completed. The patient was placed in the prone position on the procedure table. The lumbar area was prepped and draped in the usual sterile fashion. . Vital signs were closely monitored during the procedure .IV sedation was used during the procedure to decrease patients anxiety. Using AP and then oblique fluoroscopy, the "eye of the Jabier dog" corresponding to the connection between the superior and transverse articular processes of the L4 and L5 as well as the sacral ala were identified, marked, and localized with 1% lidocaine. Subsequently, an 18 guage 150 mm radiofrequency cannula with a 10-mm active tip was advanced guided by fluoroscopy to the identified target at each site. Needle positioning was confirmed on AP, oblique and lateral fluoroscopy. Motor testing at 2.5 Hz was done with paraspinal muscle stimulation only, and no radicular symptoms down the legs. Then 1 mL of 4% lidocaine was injected in each site. Radiofrequency thermocoagulation at 80 degrees celsius for 90 seconds was then performed. [place] were removed. Sterile dressings were applied. COMPLICATIONS: No acute complications. DISPOSITION / PLANS: The patient was placed in a supine position and transferred to the recovery area in a stable condition for observation and was discharged from the recovery room after meeting discharge criteria. Home discharge instructions given to the patient by the staff. The patient will follow up in clinic in 4 weeks.
== END 2019-05-01 10:07 | disposition home or self-care (01) ==
LOC: ORPAIN 07:15
PROVIDERS: ATTEND Anesthesiology
DX: M47.816 Spondylosis without myelopathy or radiculopathy, lumbar region (principal); Z95.810 Presence of automatic (implantable) cardiac defibrillator
CPT/HCPCS: 64635; 64636; J2250; J3010; 99152

== ENCOUNTER → 2019-05-24 | Outpatient (CLI) | payer MEDICARE, OTHER ==
--- NOTE | 2019-05-24 10:04 | US ---
EXAMINATION TYPE: US duplex aorta DATE OF EXAM: 05/24/2019 COMPARISON: CT lumbar spine January 10, 2019 CLINICAL HISTORY: I79.1 Aortitis, screening. HTN, no hx AAA Extremely limited exam due to patient body habitus and overlying bowel gas EXAM MEASUREMENTS: Abdominal Aorta: Proximal: 2.1 x 2.7 cm Mid: 1.7 x 2.3 cm Distal: 1.8 x 1.9 cm Bifurcation: Not visualized due to overlying bowel gas Scanning of proximal abdominal aorta shows adjacent heterogeneous hyperechoic liver. Visualized porti on of aorta shows no aneurysmal change. Suboptimal due to body habitus and overlying bowel gas. IMPRESSION: Suboptimal study without AAA. Findings correlate with recent CT January 10, 2019.
== END | disposition home or self-care (01) ==
LOC: RADUSWWP 09:33
PROVIDERS: ATTEND Internal Medicine
DX: I79.1 Aortitis in diseases classified elsewhere (principal)
CPT/HCPCS: 93979

== ENCOUNTER → 2019-05-24 | Outpatient (CLI) | payer MEDICARE, OTHER ==
--- NOTE | 2019-05-24 13:16 | CTL ---
EXAMINATION TYPE: CT Low Dose Lung DATE OF EXAM ORDERED: 05/24/2019 HISTORY: Personal history of tobacco use. Lung cancer screening CT DLP: 141.[address] CTDI: 4.3 mGy Automated exposure control for dose reduction was used. SCREENING VISIT: Initial COMPARISON: None TECHNIQUE: Low dose computed tomography scan was performed through the chest at 1 mm thick sections a nd reconstructed images in the coronal plane at [address] DIAGNOSTIC QUALITY: Satisfactory FINDINGS: LUNG NODULES: None. LUNGS: COPD: Severity: Normal Fibrosis: Severity: Normal Lymph nodes: None Other findings: None RIGHT PLEURAL SPACE: Effusion: None Calcification: None Thickening: None Pneumothorax: None LEFT PLEURAL SPACE: Effusion: None Calcification: None Thickening: None Pneumothorax: None HEART: Heart Size: Normal Coronary calcification: Moderate Pericardial effusion: None OTHER FINDINGS: Upper abdomen: Normal Bony thorax: Normal Supraclavicular region: Normal Other: Ascending thoracic aorta at the level the main pulmonary artery measures 4.8 cm. The main pul monary artery at the bifurcation measures 3.6 cm. IMPRESSION: 1. No suspicious CT changes. 2. Aneurysmal dilatation of the ascending thoracic aorta. FOLLOW UP CT CHEST RECOMMENDATION: Follow-up low-dose CT chest [address] LUNG RAD: 1
== END | disposition home or self-care (01) ==
LOC: RADCTMAIN 10:02
PROVIDERS: ATTEND Internal Medicine
DX: Z12.2 Encounter for screening for malignant neoplasm of respiratory organs (principal); I71.2 Thoracic aortic aneurysm, without rupture; F17.200 Nicotine dependence, unspecified, uncomplicated
CPT/HCPCS: 93979

== ENCOUNTER → 2019-05-29 | Outpatient (CLI) | payer MEDICARE, OTHER ==
[2019-05-29 12:32] VITALS: BP 160/77; PULSE 68; RESP 18
--- NOTE | 2019-06-01 07:33 | P.PAINPG ---
Subjective Progress Note Date: 05/29/19 This is a follow-up visit for this 69 year old male with a chronic history of severe low back pain, he has been diagnosed with lumbar spondylosis with lumbar facet arthropathy, recently we have done radiofrequency ablation of the lumbar area L3 , L4, L5 bilaterally. He returns today for follow-up. He reports no significant relief from this procedure, although initially, when questioned, he states that he only has left-sided back pain,. When told that the procedure likely help his right-sided back pain, he then stated that he also had right- sided back pain. It is unclear as to how much the procedure helped his pain. Today his primary complaint is left-sided low back pain, radiating to posterior thigh, not past the knee. Pain is described as aching, pressure, rated as 0/10 on sleeping and 10/10 when walking or with activity. He denies new onset numbness, weakness, tingling, bowel or bladder dysfunction Review of systems is negative for chest pain, shortness of breath, new onset weakness, numbness/tingling, abdominal pain, malaise, fever, night sweats, chills, homicidal or suicidal ideation, or bowel or bladder incontinence. Objective Physical exam: Vitals: Reviewed in EMR GENERAL: Well appearing, in no acute distress, morbidly obese PSYCH: Mood and affect is appropriate. Awake, alert, and oriented SKIN: Skin color, texture, turgor normal, no rashes or lesions HEENT: Normocephalic, atraumatic. EOM intact CV: No pedal edema RESP: Respirations are unlabored, no audible wheezing GI: Abdomen non-distended MUSCULOSKELETAL: Bilateral lower extremity strength is normal and symmetric. No atrophy or tone abnormalities are noted. Lumbar spine: Straight leg raising in the sitting position is negative for radicular pain. Tenderness to palpation over the lumbar spine and paraspinous muscles, on the left side. Buttocks: Tenderness to palpation over the left PSIS, left Taiwo positive, left sacral thrust positive Extremities: Peripheral joint ROM is full and pain free without obvious instability or laxity in all four extremities. No edema or skin discolorations noted. Gait: Gait is slow NEUR: Bilateral lower extremity coordination and muscle stretch reflexes are physiologic and symmetric. Negative clonus bilaterally. No loss of sensation is noted. Assessment and Plan Plan: Assessment and plan= chronic severe low back pain secondary to lumbar spondylosis and left-sided sacroiliitis Patient recently underwent radio frequency ablation of the lumbar area L 3, L4, and L5 bilaterally with no significant relief per patient. We will schedule left-sided SI joint injection as this is likely contributing to his pain. Patient does not need to hold Coumadin for this procedure. Prescription for physical therapy given to patient to focus on low back strengthening and stretching exercises as well as SI joint exercises Patient was counseled for 5 minutes on smoking cessation, exercise and weight loss. He does not seem motivated to do either at this point. Patient was also counseled to take Tylenol [id number]. PQRS Measure Charge Sheet Measure #130: Documentation of Current Meds in Medical Chart: Patient's medications documented in chart Measure #226: Tobacco Use: Screen & Cessation Intervention: Pt screened for tobacco use AND intervention given Measure #111: Pneumonia Vaccination: Pneumococcal vaccine NOT administered or previously given Measure #47: Advance Care Plan: Advance care planning discussed & documented, pt chose/unable to give Measure #412: Opioid Treatment Agreement: No documentation of signed opioid treatment agreement Measure #317: Preventitive Care & Scrn High Bld Press & F/U: Pre-hypertensive or hypertensive BP documented, pt will f/u with PCP Measure #128: Body Mass Index (BMI) Screening & Follow-up: BMI documented ABOVE normal parameters - f/u documented Measure #131: Pain Assessment & Follow-up: Pain positive & plan documented, Follow-up scheduled Measure #431: Unhealthy Alcohol Use Preventative Care & Scrn: Patient not identified as an unhealthy alcohol user PQRS Narrative: Smoking Status Current every day smoker Narcotic Agreement Date Signed 03/29/13 Pain Intensity [Lower Back] 5 Scale Used Numeric (1 - 10) Hx Alcohol Use (MH) No Home Medications: Ambulatory Orders Carvedilol [Coreg] 25 mg PO BID 11/02/13 Ranitidine HCl [Zantac] 150 mg PO BID 11/02/13 Warfarin Sodium [Coumadin] 6 mg PO MOTUWETHFR 11/02/13 Warfarin Sodium [Coumadin] 3 mg PO SUSA 07/15/14 Atorvastatin [Lipitor] 20 mg PO HS 10/24/18 Febuxostat [Uloric] 40 mg PO DAILY 10/24/18 Sertraline [Zoloft] 25 mg PO DAILY 10/24/18 metFORMIN HCL [Glucophage] 500 mg PO BID 10/24/18 Budesonide-Formot 160-4.5 Mcg [Symbicort 160-4.5 Mcg Inhaler] 2 puff INHALATION RT-BID PRN 01/07/19 Pregabalin [Lyrica] 50 mg PO DAILY 01/07/19 Spironolactone 100 mg PO DAILY 01/07/19 Omeprazole [PriLOSEC] 20 mg PO [id number] 03/15/19 Controlled Substance Measures - Controlled Substance Measures Is patient prescribed a controlled substance at discharge?: No
== END | disposition home or self-care (01) ==
LOC: PNWHC3 11:07
PROVIDERS: ATTEND Anesthesiology
DX: M47.816 Spondylosis without myelopathy or radiculopathy, lumbar region (principal); M46.1 Sacroiliitis, not elsewhere classified; G89.29 Other chronic pain; Z79.01 Long term (current) use of anticoagulants; Z79.84 Long term (current) use of oral hypoglycemic drugs; Z79.899 Other long term (current) drug therapy; Z79.891 Long term (current) use of opiate analgesic
CPT/HCPCS: 99211

== ENCOUNTER → 2019-08-01 | Outpatient (CLI) | payer MEDICARE, OTHER ==
[2019-08-01 14:43] VITALS: BP 130/73; PULSE 48; RESP 18
--- NOTE | 2019-08-01 15:11 | P.PN ---
Subjective Progress Note Date: 08/01/19 This is a 69-year-old gentleman with history of chronic severe axial lower back pain. The patient had lumbar medial branch RFA which did not help his pain as he states. His pain gets worse by any activity .I had difficulty examining him today in the supine position because of his increasing pain when he lies on his back. Patient denies new-onset weakness, bowel/bladder incontinence, or any other signs or symptoms of cauda equina syndrome. There are no signs of acute intoxication, and no indications of medication diversion or overuse. In addition to above, 13-point review of systems is also negative for chest pain, shortness of breath, changes in vision, changes in hearing, new onset weakness, abdominal pain, diarrhea, extreme fatigue, malaise, fever, skin changes, homicidal or suicidal ideation, or bowel or bladder incontinence. Vital Signs: Reviewed in EMR Gen: AAOx3, NAD HEENT: PERRLA,hearing grossly normal Pulm: resp unlabored Heart: Regular Neck: supple, trachea midline Neuro exam of the lower extremities: Normal muscle strength bilaterally Significant tenderness around the sacroiliac joints bilaterally Neuro: CN II-XII grossly intact, Imaging: Reviewed in EMR/chart Assessment: Morbid obesity Tobacco abuse Diabetes Treatment with Coumadin Bilateral sacroiliitis Lumbar spondylosis without myelopathy Lumbar DDD Lumbar neuroforaminal stenosis Plan: 1. Explanation: Opioid and psychological risk scores were reviewed. Diagnoses, prognoses, and multiple treatment options including but not limited to physical therapy, interventional therapies, adjuvant medical therapies, narcotic medication therapies, and surgery were discussed with the patient and all questions were answered to the patient's satisfaction. 2. Opioid agreement: Signed with the patient and the patient is warned not to use opioids while driving or before driving and not to combine opioids with benzodiazepines or alcohol. 3. Counseling: The patient was counseled extensively on SMOKING CESSATION, BODY MASS INDEX, EXERCISE. Specifically, the patient was instructed regarding the importance of smoking cessation, obesity, and exercise in the context of both chronic pain and overall health. 4. Procedures: Scheduled for bilateral sacroiliac joint steroid injection under fluoroscopic guidance using 25-gauge needle and holding pressure over the injection site for a few minutes afterwards. 5. Consultations: None 6. Investigations: None 7. Medications: None 8. Disposition: Return to the above-mentioned procedure as soon as possible 9. Maps were reviewed and were appropriate. Objective - Vital Signs Vital signs: Vital Signs Temp Pulse 48 L 08/01/19 14:33 Resp 18 08/01/19 14:33 BP 130/73 08/01/19 14:33 Pulse Ox 97 08/01/19 14:33 Intake & Output 07/31/19 08/01/19 08/01/19 18:59 06:59 18:59 Weight 138.346 kg
== END | disposition home or self-care (01) ==
LOC: PNWHC3 12:51
PROVIDERS: ATTEND Anesthesiology
DX: G89.29 Other chronic pain (principal); M48.061 Spinal stenosis, lumbar region without neurogenic claudication; M47.816 Spondylosis without myelopathy or radiculopathy, lumbar region; E66.01 Morbid (severe) obesity due to excess calories; Z68.41 Body mass index [BMI] 40.0-44.9, adult; E11.9 Type 2 diabetes mellitus without complications; M46.1 Sacroiliitis, not elsewhere classified; Z72.0 Tobacco use; Z98.890 Other specified postprocedural states
CPT/HCPCS: 99211

== ENCOUNTER 2019-08-10 08:46 | Day surgery (SDC) | payer MEDICARE, OTHER ==
[2019-08-08 17:16] VITALS: BMI 44.3
[~2019-08-10 08:46] MED LIST changes: +IOPAMIDOL M200 10 ML VIAL ONE; +LIDOCAINE 4% (PF) 5 ML AMP ONE
[2019-08-10 11:04] VITALS: RESP 16; TEMP 98.8
[2019-08-10 11:21] LABS: Glucose,Whole Blood 86 mg/dL (75-99)
--- NOTE | 2019-08-10 12:03 | P.PCN ---
Date of Procedure: 08/10/19 Procedure(s) Performed: Preoperative diagnoses: bilateral sacroilitis Postoperative diagnoses: bilateral sacroilitis. Procedure: bilateral sacroiliac joint steroid injection under fluoroscopic guidance. Surgeon: Sandra Mcdaniel MD Anesthesia: 2 mL of 1% lidocaine, no IV sedation was used Fluoroscopy was used for the procedure and fluoroscopic images were saved to the radiology portion of the patient's chart. EBL: None Procedure indication: The patient had a history of severe chronic low back pain, diagnosed with sacroiliitis unresponsive to conservative treatment. Procedure description: The patient was seen and identified in the preoperative holding area, risks and benefits and alternative of the procedure and possible complications discussed with the patient, and patient agreed with the preceding, patient signed the consent and vital signs were monitored and were stable throughout the procedure, patient was placed in the prone position on table and the lumbosacral area was prepped and draped with a sterile fashion, vital signs were closely monitored during the procedure, the fluoroscopy camera was placed in the contralateral oblique view on the bilateral sacroiliac joint and the lower part of the joint was identified . Then the skin and subcutaneous tissue was anesthetized using 2 mL of 1% lidocaine then a 22-gauge 5 inch Quincke-type spinal needle advanced slowly under fluoroscopy and placed in the posterior and inferior border of the right sacroiliac joint, placement confirmed with AP and lateral view, and after appropriate needle placement confirmed and after negative aspiration for heme, 1 mL of Isovue 200 was injected revealing intra- articular spread. Then a solution consisting of 1 ml of preservative free normal saline and 20 mg of Kenalog injected after negative aspiration, no paresthesia during the injection, no resistance to injection, and the needle was removed. The procedure was then repeated on the left side. Total of 40 mg of Kenalog was used for the procedure. Patient tolerated the procedure well without any complication. The patient was returned to supine position after the back was cleaned and a Band-Aid applied, the patient was transported to recovery room in stable condition and monitored for 30 minutes before being discharged home. The patient will follow up with the pain clinic in a few weeks
[2019-08-10 12:21] VITALS: BP 145/89; PULSE 61
--- NOTE | 2019-08-10 13:45 | FL ---
EXAMINATION TYPE: FL guided pain mgmt statistic DATE OF EXAM: 08/10/2019 HISTORY: Fluoroscopy time 18.8 seconds of fluoroscopy provided. IMPRESSION: 1. Fluoroscopy time.
== END 2019-08-10 12:29 | disposition home or self-care (01) ==
LOC: ORPAIN 08:46
PROVIDERS: ATTEND Anesthesiology
DX: G89.29 Other chronic pain (principal); M46.1 Sacroiliitis, not elsewhere classified; Z79.01 Long term (current) use of anticoagulants
CPT/HCPCS: J2001; Q9966; G0260

== ENCOUNTER → 2019-09-07 | Outpatient (CLI) | payer MEDICARE, OTHER ==
[2019-09-07 11:57] VITALS: BP 134/85; PULSE 67; RESP 16
--- NOTE | 2019-09-07 19:28 | P.PAINPG ---
Subjective Progress Note Date: 09/07/19 This is a follow-up visit for this 69 year old male with a chronic history of severe low back pain, he has been diagnosed with lumbar spondylosis with lumbar facet arthropathy, lumbar degenerative disc disease , bilateral sacroiliitis , patient continued to have pain after interventional pain management, he had minimal or no benefit from radiofrequency thermocoagulation of the median branch lumbar area, and he had no benefit from the sacroiliac joint steroid injection. Pain is described as aching, pressure, rated as 0/10 on sleeping and 10/10 when walking or with activity. He denies new onset numbness, weakness, tingling, bowel or bladder dysfunction, continue to use Lyrica and Cymbalta Review of systems is negative for chest pain, shortness of breath, new onset weakness, numbness/tingling, abdominal pain, malaise, fever, night sweats, chills, homicidal or suicidal ideation, or bowel or bladder incontinence. Objective - Vital Signs Vital signs: Vital Signs Temp Pulse 67 09/07/19 11:50 Resp 16 09/07/19 11:50 BP 134/85 09/07/19 11:50 Pulse Ox - Exam Physical Examinations : -Constitutiona : Cooperative , not in acute distress . -HEENT : nech : supple , no Lymphadenopathy , normal thyroid size . : eyes : no ptosis , no icterus, no photophobia . - neurologic : Cranial nerve II to XII intact , no focal neurological deffecit . -psychatric : alert , oriented X 3 , appropriate affect , intact judgment and insight . -Lymphatic : no Lymphadenopathy . - musculoskeltal : Lumber spine moter stegnth lower extremities ,thigh and legs 5/5 Right side , 5/5 Left side deep tendon reflexes : normal Knee Jerk , normal ankle Jerk lumber facet Loading Test =positive Right , positive Left Range of motion of the lumbar spine Flexion 30 degrees, extension 10 degrees strait leg raising test = positive at 30 degree Fabere test= positive Right , and positive LT . tenderness over the Sacroiliac joint on the Right , and Left sides . Assessment and Plan Plan: Assessment and plan= chronic severe low back pain secondary to lumbar spondylosis and sacroiliitis Patient continued to have pain after her RFA of the medial branch lumbar area, and after sacroiliac joint steroid injection Patient will be referred to Dr. Rouse for evaluation for possible surgical intervention Time with Patient: Less than 30 PQRS Measure Charge Sheet Measure #130: Documentation of Current Meds in Medical Chart: Patient's medic ations documented in chart Measure #226: Tobacco Use: Screen & Cessation Intervention: Pt screened for tobacco use AND intervention given Measure #111: Pneumonia Vaccination: Pneumococcal vaccine administered or previously received Measure #47: Advance Care Plan: Advance care planning discussed & documented, pt chose/unable to give Measure #412: Opioid Treatment Agreement: No documentation of signed opioid treatment agreement Measure #408: Opioid Therapy Follow-up Evaluation: Patient had NO f/u eval minimum every 3 months during opioid therapy Measure #317: Preventitive Care & Scrn High Bld Press & F/U: Normal blood pressure, f/u not required Measure #128: Body Mass Index (BMI) Screening & Follow-up: BMI documented ABOVE normal parameters - f/u documented Measure #131: Pain Assessment & Follow-up: Pain positive & plan documented, Follow-up scheduled Measure #431: Unhealthy Alcohol Use Preventative Care & Scrn: Patient not identified as an unhealthy alcohol user PQRS Narrative: Smoking Status Current every day smoker Narcotic Agreement Date Signed 03/29/13 Blood Pressure 134/85 Pain Intensity [Lower Back] 8 Scale Used Numeric (1 - 10) Hx Alcohol Use (MH) No Home Medications: Ambulatory Orders Carvedilol [Coreg] 25 mg PO BID 11/02/13 Warfarin Sodium [Coumadin] 6 mg PO TUWEFR 11/02/13 Warfarin Sodium [Coumadin] 3 mg PO SUTUTHSA 07/15/14 Atorvastatin [Lipitor] 20 mg PO HS 10/24/18 Febuxostat [Uloric] 40 mg PO DAILY 10/24/18 metFORMIN HCL [Glucophage] 500 mg PO BID 10/24/18 Spironolactone 100 mg PO DAILY 01/07/19 Albuterol Inhaler [Ventolin Hfa Inhaler] 1 - 2 puff INHALATION RT-Q6H PRN 08/08/19 DULoxetine HCL [Cymbalta] 30 mg PO HS 08/08/19 Irbesartan 300 mg PO DAILY 08/08/19 Montelukast [Singulair] 10 mg PO HS 08/08/19 Pregabalin [Lyrica] 150 mg PO BID 08/08/19 Controlled Substance Measures - Controlled Substance Measures Is patient prescribed a controlled substance at discharge?: No
== END | disposition home or self-care (01) ==
LOC: PNWHC3 11:14
PROVIDERS: ATTEND Specialist
DX: G89.29 Other chronic pain (principal); M47.816 Spondylosis without myelopathy or radiculopathy, lumbar region; M46.1 Sacroiliitis, not elsewhere classified; F17.200 Nicotine dependence, unspecified, uncomplicated; Z98.890 Other specified postprocedural states; Z79.899 Other long term (current) drug therapy; Z79.01 Long term (current) use of anticoagulants; Z79.84 Long term (current) use of oral hypoglycemic drugs
CPT/HCPCS: 99211

== ENCOUNTER → 2020-01-04 | Outpatient (CLI) | payer MEDICARE, OTHER ==
--- NOTE | 2020-01-04 11:30 | US ---
EXAMINATION TYPE: US venous doppler duplex LE LT DATE OF EXAM: 01/04/2020 10:43 AM COMPARISON: 12/12/2011 CLINICAL HISTORY: 69-year-old male R60.9 EDEMA. SIDE PERFORMED: Left TECHNIQUE: The lower extremity deep venous system is examined utilizing real time linear array sonog paco with graded compression, doppler sonography and color-flow sonography. FINDINGS: VESSELS IMAGED: External Iliac Vein (EIV) Common Femoral Vein Deep Femoral Vein Greater Saphenous Vein * Femoral Vein Popliteal Vein Small Saphenous Vein * Proximal Calf Veins (* superficial vessels) Left Leg: Negative for DVT IMPRESSION: No evidence for DVT within the left lower extremity imaged from the groin to the upper calf.
== END | disposition home or self-care (01) ==
LOC: RADUSWWP 10:21
PROVIDERS: ATTEND Internal Medicine
DX: R60.9 Edema, unspecified (principal)

== ENCOUNTER 2020-03-30 10:23 | Emergency (ER) | payer MEDICARE, OTHER ==
[2020-03-30 10:37] VITALS: BP 136/74; PULSE 75; RESP 18; TEMP 98
[2020-03-30] MEDS ORDERED: LIDOCAINE 1% INJ 10MG/ML (20 ML MDV) SQ ONE (10:50)
--- NOTE | 2020-03-30 11:17 | ED ---
Skin/Abscess/FB HPI - General Chief complaint: Skin/Abscess/Foreign Body Stated complaint: cyst on neck Time Seen by Provider: 03/30/20 10:41 Source: patient Mode of arrival: ambulatory Limitations: no limitations - History of Present Illness Initial comments: 69-year-old male presenting for a left-sided possible neck abscess. Patient states he said lump on the backside of his left neck for weeks. He thought initially it was a pimple. He states he has not been able to express anything out of it. Patient has a fever chills and malaise or neck stiffness she has no additional complaints upon arrival he appears well nontoxic in no acute distress. - Related Data Home Medications Medication Instructions Recorded Confirmed Carvedilol [Coreg] 25 mg PO BID 11/02/13 09/07/19 Warfarin Sodium [Coumadin] 6 mg PO TUWEFR 11/02/13 09/07/19 Warfarin Sodium [Coumadin] 3 mg PO SUTUTHSA 07/15/14 09/07/19 Atorvastatin [Lipitor] 20 mg PO HS 10/24/18 09/07/19 Febuxostat [Uloric] 40 mg PO DAILY 10/24/18 09/07/19 metFORMIN HCL [Glucophage] 500 mg PO BID 10/24/18 09/07/19 Spironolactone 100 mg PO DAILY 01/07/19 09/07/19 Albuterol Inhaler (Mhu) [Ventolin 1 - 2 puff INHALATION RT-Q6H PRN 08/08/19 09/07/19 Hfa Inhaler] DULoxetine HCL [Cymbalta] 30 mg PO HS 08/08/19 09/07/19 Irbesartan 300 mg PO DAILY 08/08/19 09/07/19 Montelukast [Singulair] 10 mg PO HS 08/08/19 09/07/19 Pregabalin [Lyrica] 150 mg PO BID 08/08/19 09/07/19 Previous Rx's Medication Instructions Recorded Cephalexin [Keflex] 500 mg PO Q8HR 5 Days #15 cap 03/30/20 Allergies Allergy/AdvReac Type Severity Reaction Status Date / Time No Known Allergies Allergy Verified 03/30/20 10:37 Review of Systems ROS Statement: Those systems with pertinent positive or pertinent negative responses have been documented in the HPI. ROS Other: All systems not noted in ROS Statement are negative. Past Medical History Past Medical History: Atrial Fibrillation, Heart Failure, COPD, Diabetes Mellitus, Hyperlipidemia, Hypertension, Respiratory Disorder, Skin Disorder Additional Past Medical History / Comment(s): Cardiomyopathy with a AICD placement, hard of hearing right ear, psoriasis, history of abdominal aortic aneurysm, chronic pain back. History of Any Multi-Drug Resistant Organisms: None Reported Past Surgical History: AICD, Heart Catheterization Additional Past Surgical History / Comment(s): AICD/DEFIBILLATOR. PAIN CLINIC PROCEDURES. Spinal cord stimulator plecement/removal. Past Anesthesia/Blood Transfusion Reactions: No Reported Reaction Type of Cardiac Device: AICD Device Placement Date:: 06/17/2006 Past Psychological History: No Psychological Hx Reported Smoking Status: Current every day smoker Past Alcohol Use History: None Reported Past Drug Use History: None Reported - Past Family History Mother Family Medical History: No Reported History Father Family Medical History: CVA/TIA General Exam - General Exam Comments Initial Comments: General: The patient is awake and alert, in no distress, and does not appear acutely ill. Eye: Pupils are equal, round and reactive to light, extra-ocular movements are intact. No nystagmus. There is normal conjunctiva bilaterally. No signs of icterus. Ears, nose, mouth and throat: There are moist mucous membranes and no oral lesions. Neck: The neck is supple, there is no tenderness or JVD. left sided posterior 3x2 cm raised slightly red and tender area. Musculoskeletal: Normal ROM, no tenderness. Strength 5/5. Sensation intact. Radial pulses equal bilaterally 2+. Neurological: A&O x 3. CN II-XII intact grossly, There are no obvious motor or sensory deficits. Coordination appears grossly intact. Speech is normal. Skin: Skin is warm and dry and no rashes or lesions are noted. Psychiatric: Cooperative, appropriate mood & affect, normal judgment. Limitations: no limitations Course Vital Signs 03/30/20 10:32 Temperature 98 F Pulse Rate 75 Respiratory 18 Rate Blood Pressure 136/74 O2 Sat by Pulse 97 Oximetry Procedures - [place] Protocol (Time Out) Procedure Performed:: Incision and drainage of left neck abcess Performing Provider: Gabriella Separ Nurse: Jeannie Tom Patient Identification (2 identifiers required): Chart, Verbal, Arm Band, Name, Birthdate Patient/Legal Video Specialist has Confirmed: Identity, Site, Procedure Site: left neck Site Marked: Yes Site Verified With Patient/Guardian: Yes - Incision & Drainage Consent Obtained: verbal consent, written consent Indication: possible abscess Site: neck Size (cm): 3 Anesthetic Used: lidocaine 1% Amount (mLs): 1 I&D Cleaning Method: Iodine Sterile Field Used?: Yes Scalpel Used: #11 Needle Aspiration Performed?: Yes (no pus, scant blood) Irrigation Performed?: No I&D Drainage Obtained: Other (there is VERY thick, grainy appearing substance foul odor. APpears consistent with sebaceous cyst) Culture Obtained?: No Patient Tolerated Procedure: well, no complications Medical Decision Making - Medical Decision Making 69yo male prsenting for possible abscess. I&D performed findings most consistent with sebaceous cyst. Patient has a dermatology appointment on Wednesday at 2PM. I recommend having complete removal of the cyst as recommended by dermatology. as patient is diabetic with co morbidities, will place pt on antibiotics to ensure no secondary infectino. Patient case dsicussed [facility] Dr. Stanley who evaluated patient is agreeable to care plan. Disposition Clinical Impression: Sebaceous cyst Disposition: HOME SELF-CARE Condition: Good Instructions (If sedation given, give patient instructions): Dermal Cyst Excision (DC) Additional Instructions: Please use medication as discussed. Please follow-up with dermatology on Wednesday at 2PM as currently scheduled, return for fevers, increasing redness. Please return to emergency room if the symptoms increase or worsen or for any other concerns. Prescriptions: Cephalexin [Keflex] 500 mg PO Q8HR 5 Days #15 cap Is patient prescribed a controlled substance at d/c from ED?: No Referrals: Faye Slade MD [Primary Care Provider] - 1-2 days Time of Disposition: 11:16
== END 2020-03-30 11:30 | disposition home or self-care (01) ==
LOC: EC 10:23
DX: L72.3 Sebaceous cyst (principal); I11.0 Hypertensive heart disease with heart failure; I50.9 Heart failure, unspecified; E11.9 Type 2 diabetes mellitus without complications; J44.9 Chronic obstructive pulmonary disease, unspecified; I48.91 Unspecified atrial fibrillation; E78.5 Hyperlipidemia, unspecified; G89.29 Other chronic pain; M54.9 Dorsalgia, unspecified; H91.91 Unspecified hearing loss, right ear; F17.200 Nicotine dependence, unspecified, uncomplicated; Z79.84 Long term (current) use of oral hypoglycemic drugs; Z79.01 Long term (current) use of anticoagulants; Z79.899 Other long term (current) drug therapy; Z95.810 Presence of automatic (implantable) cardiac defibrillator
CPT/HCPCS: 99282; 10060; J2001

== ENCOUNTER → 2020-06-14 | Outpatient (CLI) | payer MEDICARE, OTHER ==
--- NOTE | 2020-06-14 10:08 | XR ---
EXAM TYPE: LUMBAR SPINE X RAY SERIES COMPARISON: NONE HISTORY: Pain TECHNIQUE: 3 views are submitted. FINDINGS: Diffuse osteopenia with vascular calcifications and multilevel moderate to severe degenerative disc d isease with facet arthropathy and hypertrophic spurring. Calcification of the aorta noted with a maxi mal dimension of 3.5 cm. IMPRESSION: 1. Severe multilevel degenerative disc disease and facet arthropathy. 2. Suspect a abdominal aortic aneurysm measuring approximately 3.5 cm. This was not described on the ultrasound 2019. Recommend repeat aorta ultrasound.
--- NOTE | 2020-06-14 10:08 | XR ---
EXAMINATION TYPE: XR sacroiliac joint comp BILAT DATE OF EXAM: 06/14/2020 COMPARISON: NONE HISTORY: Pain TECHNIQUE: 4 views submitted FINDINGS: SI joints are symmetric. Vascular calcifications are noted. Hypertrophic and degenerative c hange of the spine. No erosive change of the SI joint. No significant sclerosis. Joint spaces appear symmetric. IMPRESSION: No diagnostic evidence of sacroiliitis. Hypertrophic and degenerative changes of the lumb ar spine noted.
== END | disposition home or self-care (01) ==
LOC: RADXRMAIN 06:57
PROVIDERS: ATTEND Internal Medicine Geriatric Medicine
DX: M51.36 Other intervertebral disc degeneration, lumbar region (principal); M47.816 Spondylosis without myelopathy or radiculopathy, lumbar region
CPT/HCPCS: 72100; 72202

== ENCOUNTER → 2020-07-03 | Outpatient (CLI) | payer MEDICARE, OTHER ==
--- NOTE | 2020-07-03 08:37 | US ---
EXAMINATION TYPE: US duplex aorta DATE OF EXAM: 07/03/2020 COMPARISON: Ultrasound duplex aorta May 24, 2019 CLINICAL HISTORY: I71.9 Aortic aneurysm w/o rupture. AAA exam extremely limited due to large body hab itus. EXAM MEASUREMENTS: Abdominal Aorta: Proximal: 2.3 x 2.5 cm Mid: 2.3 x 1.8 cm Distal: 1.9 cm Bifurcation: Not visualized. Suboptimal study as aorta cannot be seen through the bifurcation. IMPRESSION: Suboptimal study without greater than 3.0 cm AAA identified. No significant change from p rior.
== END | disposition home or self-care (01) ==
LOC: RADUSWWP 07:25
PROVIDERS: ATTEND Internal Medicine
DX: I71.9 Aortic aneurysm of unspecified site, without rupture (principal)
CPT/HCPCS: 93979

== ENCOUNTER → 2020-09-05 | Outpatient (CLI) | payer MEDICARE, OTHER ==
--- NOTE | 2020-09-06 10:16 | CT ---
EXAMINATION TYPE: CT lumbar spine wo con DATE OF EXAM: 09/05/2020 COMPARISON: 01/10/2019 HISTORY: 70-year-old male LOWER BACK PAIN TECHNIQUE: Contiguous axial scanning of the lumbar spine without IV contrast. Coronal and sagittal re constructions performed. CT DLP: 963 mGycm Automated exposure control for dose reduction was used. FINDINGS: Large patient body habitus results in extensive noise artifacts. L5-S1 redemonstrated with disc osteophyte complex. Progressive degenerative disc disease at T12-L1 and L1-L2 now with disc vacuum. Hypertrophic facet arthropathy lower lumbar spine. There is degenerative grade 1 anterolisthesis at L4-L5. Remaining alignment is maintained. Vertebral body heights are preserved. Very limited assessment of the spinal canal due to the lungs are. MRI may be needed for more adequate canal assessment if indicated. On the right, there is [id number] foraminal stenosis at L5-S1 similar to the 2019 exam and mi ld at additional levels. On the left, there is moderate neuroforaminal stenosis at L5-S1, similar to prior exam and mild at ad ditional levels. IMPRESSION: 1. LARGE PATIENT BODY HABITUS RESULTING IN EXTENSIVE NOISE ARTIFACTS, LIMITING THE EXAM, ESPECIALLY A SSESSMENT OF THE SPINAL CANAL. 2. MODERATE MULTILEVEL DEGENERATIVE DISC DISEASE, ADVANCED BUT UNCHANGED AT L5-S1. DEGENERATIVE DISC DISEASE, HOWEVER, HAS PROGRESSED AT T12-L1 AND L1-L2. 3. FACET ARTHROPATHY MID TO LOWER LUMBAR SPINE WITH SIMILAR TRACE GRADE 1 ANTEROLISTHESIS AT L4-L5. 4. CONTINUED MODERATE TO SEVERE RIGHT AND MODERATE LEFT NEUROFORAMINAL STENOSIS AT L5-S1.
== END ==
LOC: RADCTMAIN 15:02
PROVIDERS: ATTEND Psychiatry & Neurology Neurology
DX: M51.36 Other intervertebral disc degeneration, lumbar region (principal)
CPT/HCPCS: 72131

== ENCOUNTER → 2021-02-12 | Outpatient (CLI) | payer MEDICARE, OTHER ==
--- NOTE | 2021-02-12 10:33 | US ---
EXAMINATION TYPE: US kidneys/renal and bladder DATE OF EXAM: 02/12/2021 COMPARISON: US CLINICAL HISTORY: N18.9 Chronic kidney disease. Patient is morbidly obese. EXAM MEASUREMENTS: Right Kidney: 12.0 x 7.7 x 6.5 cm Left Kidney: 11.1 x 4.8 x 6.4 cm Post Void Residual Volume: patient stated is unable to void Right Kidney: No hydronephrosis or masses seen; crescent shaped extracapsular fluid area note lateral to cortex suggests sonographic"sweat sign" for renal failure and noted bilateral renal areas. Left Kidney: No hydronephrosis or masses seen Bladder: wnl Bilateral Jets seen: yes There is no evidence for hydronephrosis at this point in time. No nephrolithiasis is seen. No rafael s are identified. The urinary bladder is anechoic. Bilateral ureteral jets are seen. IMPRESSION: crescent shaped extracapsular fluid area note lateral to cortex suggests sonographic"sweat sign" for renal failure and noted bilateral renal areas.
== END | disposition home or self-care (01) ==
LOC: RADUSWWP 09:29
PROVIDERS: ATTEND Internal Medicine
DX: N18.9 Chronic kidney disease, unspecified (principal); E66.01 Morbid (severe) obesity due to excess calories
CPT/HCPCS: 76770

== ENCOUNTER → 2021-10-15 | Outpatient (CLI) | payer MEDICARE, OTHER ==
--- NOTE | 2021-10-15 13:28 | US ---
EXAMINATION TYPE: US kidneys/renal and bladder DATE OF EXAM: 10/15/2021 COMPARISON: NONE CLINICAL HISTORY: N18.2 CKD STAGE 2. EXAM MEASUREMENTS: Right Kidney: 12.4 x 6.5 x 6.2 cm Left Kidney: 12.0 x 6.7 x 5.4 cm Right Kidney: No hydronephrosis or masses seen, crescent shaped hypoechoic area superior to kidney Left Kidney: No hydronephrosis or masses seen Bladder: wnl Bilateral Jets seen: no There is no evidence for hydronephrosis at this point in time. No nephrolithiasis is seen. No rafael s are identified. The urinary bladder is anechoic. Bilateral ureteral jets are seen. IMPRESSION: Stable crescent shaped extracapsular fluid area note lateral to cortex suggests sonographic"sweat sig n" for renal failure
== END | disposition home or self-care (01) ==
LOC: RADUSWWP 11:56
PROVIDERS: ATTEND Internal Medicine Nephrology
DX: N18.2 Chronic kidney disease, stage 2 (mild) (principal)
CPT/HCPCS: 76770

== ENCOUNTER → 2021-11-19 | Outpatient (CLI) | payer MEDICARE, OTHER ==
--- NOTE | 2021-11-19 16:17 | US ---
EXAMINATION TYPE: US abdomen complete DATE OF EXAM: 11/19/2021 COMPARISON: CLINICAL HISTORY: R74.8. abnormal labs EXAM MEASUREMENTS: Liver Length: 21.4 cm Gallbladder Wall: 0.2 cm Spleen: 12.3 cm Right Kidney: 12.6 x 6.3 x 6.0 cm Left Kidney: 11.1 x 5.1 x 5.7 cm Extremely limited exam due to patient body habitus Pancreas: wnl Liver: Increased attenuation, decreased visualization of vessels suggestive of fatty infiltrate. En larged in size. Echogenic. Limited visualization Gallbladder: No stones visualized, limited Evidence for sonographic Johnson's sign: neg CBD: Obscured by overlying bowel gas Spleen: wnl Right Kidney: No hydronephrosis or masses seen Left Kidney: No hydronephrosis or masses seen Upper IVC: Obscured by overlying bowel gas Abd Aorta: Obscured by overlying bowel gas IMPRESSION: 1. Examination limited due to body habitus. 2. Hepatomegaly. 3. Portions of the abdomen visualized are otherwise unremarkable.
== END | disposition home or self-care (01) ==
LOC: RADUSWWP 07:00
PROVIDERS: ATTEND Internal Medicine Geriatric Medicine
DX: R16.0 Hepatomegaly, not elsewhere classified (principal)
CPT/HCPCS: 76700

== ENCOUNTER → 2022-09-23 | Outpatient (CLI) | payer MEDICARE, OTHER ==
--- NOTE | 2022-09-23 12:11 | XR ---
EXAMINATION TYPE: XR shoulder complete LT DATE OF EXAM: 09/23/2022 COMPARISON: NONE HISTORY: Pain TECHNIQUE: Three views are submitted. FINDINGS: The osseous structures are intact. There is no acute fracture or dislocation. The AC joint arthropa thy noted. Apical pleural thickening. There is a cardiac device. IMPRESSION: 1. AC joint arthropathy correlate for rotator cuff disease.
== END | disposition home or self-care (01) ==
LOC: RADXRMAIN 11:46
PROVIDERS: ATTEND Internal Medicine
DX: M19.012 Primary osteoarthritis, left shoulder (principal)

== ENCOUNTER → 2022-10-13 | Outpatient (CLI) | payer MEDICARE, OTHER ==
--- NOTE | 2022-10-13 22:19 | CTL ---
EXAMINATION TYPE: CT Low Dose Lung DATE OF EXAM ORDERED: 10/13/2022 HISTORY: Tobacco use. Lung cancer screening CT DLP: 89.[address] CTDI: 2.6 mGy Automated exposure control for dose reduction was used. SCREENING VISIT: The second visit COMPARISON: 05/24/2019 TECHNIQUE: Low dose computed tomography scan was performed through the chest at 1 mm thick sections a nd reconstructed images in the coronal plane at [address] DIAGNOSTIC QUALITY: Limited, but interpretable FINDINGS: LUNG NODULES: None. LUNGS: COPD: Severity: None Fibrosis: Severity: None Lymph nodes: None Other findings: None RIGHT PLEURAL SPACE: Effusion: None Calcification: None Thickening: None Pneumothorax: None LEFT PLEURAL SPACE: Effusion: None Calcification: None Thickening: None Pneumothorax: None HEART: Heart Size: Normal Coronary calcification: Moderate Pericardial effusion: None OTHER FINDINGS: Upper abdomen: Normal Bony thorax: Normal Supraclavicular region: Normal Other: Ascending thoracic aorta at the level the main pulmonary artery measures 5.2 cm. This is incre ased from 4.8 cm previously. The main pulmonary artery at the bifurcation measures 4.0 cm. IMPRESSION: 1. Ascending thoracic aortic aneurysm 5.2 cm increasing from 4.8 cm. 2. No suspicious changes to suggest primary or metastatic neoplasm. FOLLOW UP CT CHEST RECOMMENDATION: Low-dose CT chest one year. CT LUNG RAD: Lung-Rad 1 Negative
== END | disposition home or self-care (01) ==
LOC: RADCTMAIN 13:04
PROVIDERS: ATTEND Internal Medicine
DX: Z12.2 Encounter for screening for malignant neoplasm of respiratory organs (principal); I71.21 Aneurysm of the ascending aorta, without rupture; Z87.891 Personal history of nicotine dependence
CPT/HCPCS: 71271

== ENCOUNTER → 2022-11-13 | Outpatient (CLI) | payer MEDICARE, OTHER ==
--- NOTE | 2022-11-13 13:22 | US ---
EXAMINATION TYPE: US kidneys/renal and bladder DATE OF EXAM: 11/13/2022 COMPARISON: Abdominal ultrasound November 19, 2021 CLINICAL INDICATION: Male, 72 years old with history of [id number] STAGE 2 KIDNEY DISEASE; obese, CKD EXAM MEASUREMENTS: Right Kidney: 10.8 x 5.2 x 6.5 cm Left Kidney: 11.6 x 4.8 x 6.8 cm Right Kidney: No hydronephrosis or masses seen Left Kidney: No hydronephrosis or masses seen Bladder: wnl There is no evidence for hydronephrosis at this point in time. No nephrolithiasis is seen. No rafael s are identified. The urinary bladder is adequately distended. Bilateral ureteral jets are seen. IMPRESSION: Unremarkable study. No significant change from most recent prior.
[2022-11-14 02:10] LABS: ALT 14 U/L (10-49); AST 49 U/L (14-35); African American GFR (CKD) 58.2 (60.0-200.0); Albumin 3.7 g/dL (3.8-4.9); Albumin/Globulin Ratio 1.37 (1.60-3.17); Alkaline Phosphatase 96 U/L (41-126); BUN/Creat Ratio 24.93 Ratio (12.00-20.00); Blood Urea Nitrogen 34.9 mg/dL (9.0-27.0); Calcium 8.8 mg/dL (8.7-10.3); Carbon Dioxide 28.2 mmol/L (20.0-27.5); Chloride 102 mmol/L (96-109); Globulin 2.7 g/dL (1.6-3.3); Glucose 266 mg/dL (70-110); LDL Cholesterol,Calculated 51.6 mg/dL (0.0-131.0); Non-African American GFR(CKD) 50.2 (60.0-200.0); Potassium 4.3 mmol/L (3.5-5.5); Sodium 142 mmol/L (135-145); Total Protein 6.4 g/dL (6.2-8.2)
[2022-11-14 02:11] LABS: Microalbumin Creatinine Ratio <30 mg/g Creat (0-30); Urine Creatinine 39.4 mg/dL (39.0-259.0)
== END | disposition home or self-care (01) ==
LOC: RADUSWWP 12:39
PROVIDERS: ATTEND Internal Medicine
DX: N18.31 Chronic kidney disease, stage 3a (principal); E11.9 Type 2 diabetes mellitus without complications; E66.9 Obesity, unspecified
CPT/HCPCS: 76770; 80053; 80061; 82043; 82570; 83036

== ENCOUNTER → 2023-01-11 | Outpatient (CLI) | payer MEDICARE, OTHER ==
--- NOTE | 2023-01-11 09:55 | US ---
EXAMINATION TYPE: US bladder DATE OF EXAM: 01/11/2023 COMPARISON: Prior renal US CLINICAL INDICATION: Male, 72 years old with history of N40.0 BENIGN PROSTATIC HYPERPLASIA; TECHNIQUE: Multiple sonographic images of the bladder are obtained. FINDINGS: EXAM MEASUREMENTS: Pre- Void Residual Volume: 178 mL Unable to obtain post void volume PSYCHIATRIC TECHNICIAN NOTES: Pt states he is unable to void bladder and refused to try to void bladder to obt ain post void volume Color Doppler performed to assess ureteral jets. Bilateral Jets seen: Yes Possible bladder wall thickening IMPRESSION: Urinary bladder with subjective mildly thickened espinosa which could be due to underdistention. Post vo id residuals were not obtained secondary to patient unable to void.
== END | disposition home or self-care (01) ==
LOC: RADUSWWP 08:34
PROVIDERS: ATTEND Internal Medicine
DX: N40.0 Benign prostatic hyperplasia without lower urinary tract symptoms (principal); N32.89 Other specified disorders of bladder
CPT/HCPCS: 76857

== ENCOUNTER 2023-05-21 08:39 | Emergency (ER) | payer MEDICARE, OTHER ==
[2023-05-21 08:51] VITALS: BP 121/76; PULSE 90; RESP 18; TEMP 97.7
--- NOTE | 2023-05-21 09:18 | ED ---
Abdominal Pain HPI - General Chief Complaint: Abdominal Pain Stated Complaint: Abd Pain Time Seen by Provider: 05/21/23 08:53 Source: patient, RN notes reviewed Mode of arrival: wheelchair Limitations: no limitations - History of Present Illness Initial Comments: This is a 73-year-old male who presents to the emergency department for abdominal pain. States that this is in the left lower quadrant and has been present over the last 4 days. He did have some nausea and vomiting yesterday that has since resolved. Denies any radiation into the back. Also denies any fevers or chills. He does not have any urinary symptoms or diarrhea/constipation. Denies any history of diverticulitis or kidney stones. MD Complaint: abdominal pain Onset/Timin -: days(s) Location: Q - Related Data Home Medications Medication Instructions Recorded Confirmed Carvedilol [Coreg] 25 mg PO BID 11/02/13 09/07/19 Warfarin Sodium [Coumadin] 6 mg PO TUWEFR 11/02/13 09/07/19 Warfarin Sodium [Coumadin] 3 mg PO SUTUTHSA 07/15/14 09/07/19 Atorvastatin [Lipitor] 20 mg PO HS 10/24/18 09/07/19 Febuxostat [Uloric] 40 mg PO DAILY 10/24/18 09/07/19 metFORMIN HCL [Glucophage] 500 mg PO BID 10/24/18 09/07/19 Spironolactone 100 mg PO DAILY 01/07/19 09/07/19 Albuterol Inhaler [Ventolin Hfa 1 - 2 puff INHALATION RT-Q6H PRN 08/08/19 09/07/19 Inhaler] DULoxetine HCL [Cymbalta] 30 mg PO HS 08/08/19 09/07/19 Irbesartan 300 mg PO DAILY 08/08/19 09/07/19 Montelukast [Singulair] 10 mg PO HS 08/08/19 09/07/19 Pregabalin [Lyrica] 150 mg PO BID 08/08/19 09/07/19 Previous Rx's Medication Instructions Recorded Cephalexin [Keflex] 500 mg PO Q8HR 5 Days #15 cap 03/30/20 Sulfamethox-Tmp 800-160Mg [Bactrim 1 tab PO Q12HR 7 Days #14 tab 05/21/23 DS 800-160 mg] Allergies Allergy/AdvReac Type Severity Reaction Status Date / Time No Known Allergies Allergy Verified 03/30/20 10:37 Review of Systems ROS Statement: Those systems with pertinent positive or pertinent negative responses have been documented in the HPI. ROS Other: All systems not noted in ROS Statement are negative. Past Medical History Past Medical History: Atrial Fibrillation, Heart Failure, COPD, Diabetes Mellitus, Hyperlipidemia, Hypertension, Respiratory Disorder, Skin Disorder Additional Past Medical History / Comment(s): Cardiomyopathy with a AICD placement, hard of hearing right ear, psoriasis, history of abdominal aortic aneurysm, chronic pain back. History of Any Multi-Drug Resistant Organisms: None Reported Past Surgical History: AICD, Heart Catheterization Additional Past Surgical History / Comment(s): AICD/DEFIBILLATOR. PAIN CLINIC PROCEDURES. Spinal cord stimulator plecement/removal. Past Anesthesia/Blood Transfusion Reactions: No Reported Reaction Type of Cardiac Device: AICD Device Placement Date:: 06/17/2006 Past Psychological History: No Psychological Hx Reported Smoking Status: Former smoker Past Alcohol Use History: None Reported Past Drug Use History: None Reported - Past Family History Mother Family Medical History: No Reported History Father Family Medical History: CVA/TIA General Exam Limitations: no limitations General appearance: alert, in no apparent distress Head exam: Present: atraumatic, normocephalic, normal inspection Respiratory exam: Present: normal lung sounds bilaterally. Absent: respiratory distress, wheezes, rales, rhonchi, stridor Cardiovascular Exam: Present: regular rate, normal rhythm, normal heart sounds. Absent: systolic murmur, diastolic murmur, rubs, gallop, clicks GI/Abdominal exam: Present: soft, tenderness (LLQ), normal bowel sounds. Absent: distended Neurological exam: Present: alert, oriented X3, CN II-XII intact Psychiatric exam: Present: normal affect, normal mood Skin exam: Present: warm, dry, intact, normal color. Absent: rash Course Vital Signs 05/21/23 08:46 Temperature 97.7 F Pulse Rate 90 Respiratory 18 Rate Blood Pressure 121/76 O2 Sat by Pulse 96 Oximetry Medical Decision Making - Medical Decision Making This is a 73-year-old male who presents to the emergency department for abdominal pain. Was pt. sent in by a medical professional or institution? @ -No Did you speak to anyone other than the patient for history? @ -No Did you review nursing and triage notes? @ -Yes, and I agree, it is accurate with regards to the patient's symptoms. Were old charts reviewed? @ -No Differential Diagnosis? @ -Differential Abdominal Pain Men: Appendicitis, cholecystitis, diverticulosis, ischemic bowel, pancreatitis, hepatitis, UTI, gastroenteritis, AAA, incarcerated hernia, bowel obstruction, constipation, inflammatory bowel, hepatitis, peptic ulcer disease, splenic infarction, perforated viscus, testicular torsion, this is not meant to be an all-inclusive list EKG interpreted by me (3pts min.)? @ -Not obtained X-rays interpreted by me (1pt min.)? @ -Not obtained CT interpreted by me (1pt min.)? @ -Computed tomography scan of the abdomen and pelvis obtained. My interpretation identifies no evidence of bowel wall thickening or free air. U/S interpreted by me (1pt. min.)? @ -Not obtained What testing was considered but not performed? (CT, X-rays, U/S, labs)? Why? @ -None What meds were considered but not given? Why? @ -None Did you discuss the management of the patient with other professionals? @ -No Did you reconcile home meds? @ -No Was smoking cessation discussed for >3mins.? @ -I discussed smoking cessation for greater than 3 minutes. The risk of smoking were discussed with the patient including but not limited to risks of cancer, stroke, coronary artery disease and COPD. Also discussed with patient were multiple methods of quitting smoking. Lastly we discussed the financial cost of smoking. Was critical care preformed (if so, how long)? @ -No Were there social determinants of health that impacted care today? How? (Homelessness, low income, unemployed, alcoholism, drug addiction, transportation, low edu. Level, literacy, decrease access to med. care, senior care, rehab)? @ -No Was there de-escalation of care discussed even if they declined? (Discuss DNR or withdrawal of care, Hospice)? @ -No What co-morbidities impacted this encounter? (DM, HTN, Smoking, COPD, CAD, Cancer, CVA, Hep., AIDS, mental health diagnosis, sleep apnea, morbid obesity)? @ -Morbid obesity Was patient admitted / discharged? @ -Discharged. Lab work obtained revealing a minor NEIL and a mild elevation in lactic acid at 2.2. Lab work was otherwise unremarkable. Patient declined any pain medication in the emergency department. Computed tomography scan of the abdomen and pelvis obtained. This revealed bladder wall thickening with surrounding fat stranding and advised correlation for cystitis. He was also found to have diverticulosis without acute diverticulitis. Aortic aneurysm was redemonstrated and stable when compared with 2015. Patient was unable to provide a urine sample prior to discharge. Given the CT findings concerning for cystitis and the patient's symptoms, we discussed the possibility of waiting for a urine, having him follow up with his PCP, or starting him on treatment. Patient requested to proceed with treatment, with the understanding that not having the urine could lead to incorrect treatment, and the patient verbalized understanding. He was given a dose of ceftriaxone and started on Bactrim. Advised he alternate with ibuprofen and Tylenol as needed for pain relief. Otherwise advised follow-up with his primary care provider. Undiagnosed new problem with uncertain prognosis? @ -None Drug Therapy requiring intensive monitoring for toxicity (Heparin, Nitro, Insulin, Cardizem)? @ -None Were any procedures done? @ -None Diagnosis/symptom? @ -Abdominal pain, cystitis Acute, or Chronic, or Acute on Chronic? @ -Acute Uncomplicated (without systemic symptoms) or Complicated (systemic symptoms)? @ -Uncomplicated Side effects of treatment? @ -None Exacerbation, Progression, or Severe Exacerbation] @ -Not applicable Poses a threat to life or bodily function? @ -No Return precautions reviewed in depth, the patient is instructed to return to the emergency department with any new, worsening, or concerning symptoms. Patient verbalized understanding. This case was discussed in detail with the attending ED physician, Dr. Cerrato. Presentation, findings, and treatment plan discussed in detail as well. - Lab Data Result diagrams: 05/21/23 09:31 05/21/23 09:31 Lab Results 05/21/23 05/21/23 05/21/23 Range/Units 09:31 09:31 09:31 WBC 10.1 (3.8-10.6) k/uL RBC 5.54 (4.30-5.90) m/uL Hgb 16.3 (13.0-17.5) gm/dL Hct 50.6 (39.0-53.0) % MCV 91.4 (80.0-100.0) fL MCH 29.5 (25.0-35.0) pg MCHC 32.2 (31.0-37.0) g/dL RDW 15.2 (11.5-15.5) % Plt Count 257 (150-450) k/uL MPV 8.3 Neutrophils % 61 % Lymphocytes % 27 % Monocytes % 8 % Eosinophils % 1 % Basophils % 0 % Neutrophils # 6.2 (1.3-7.7) k/uL Lymphocytes # 2.7 (1.0-4.8) k/uL Monocytes # 0.8 (0-1.0) k/uL Eosinophils # 0.1 (0-0.7) k/uL Basophils # 0.0 (0-0.2) k/uL Sodium 139 (137-145) mmol/L Potassium 3.8 (3.5-5.1) mmol/L Chloride 103 (98-107) mmol/L Carbon Dioxide 22 (22-30) mmol/L Anion Gap 14 mmol/L BUN 40 H (9-20) mg/dL Creatinine 1.67 H (0.66-1.25) mg/dL Est GFR (CKD-EPI)AfAm 47 (>60 ml/min/1.73 sqM) Est GFR (CKD-EPI)NonAf 40 (>60 ml/min/1.73 sqM) Glucose 169 H (74-99) mg/dL Lactic Ac Sepsis Rflx Plasma Lactic Acid Royce 2.2 H* (0.7-2.0) mmol/L Calcium 8.4 (8.4-10.2) mg/dL Total Bilirubin 0.9 (0.2-1.3) mg/dL AST 41 (17-59) U/L ALT 15 (4-49) U/L Alkaline Phosphatase 109 (38-126) U/L Total Protein 7.0 (6.3-8.2) g/dL Albumin 3.7 (3.5-5.0) g/dL Amylase 38 (30-110) U/L Lipase 69 (23-300) U/L 05/21/23 Range/Units 10:17 WBC (3.8-10.6) k/uL RBC (4.30-5.90) m/uL Hgb (13.0-17.5) gm/dL Hct (39.0-53.0) % MCV (80.0-100.0) fL MCH (25.0-35.0) pg MCHC (31.0-37.0) g/dL RDW (11.5-15.5) % Plt Count (150-450) k/uL MPV Neutrophils % % Lymphocytes % % Monocytes % % Eosinophils % % Basophils % % Neutrophils # (1.3-7.7) k/uL Lymphocytes # (1.0-4.8) k/uL Monocytes # (0-1.0) k/uL Eosinophils # (0-0.7) k/uL Basophils # (0-0.2) k/uL Sodium (137-145) mmol/L Potassium (3.5-5.1) mmol/L Chloride (98-107) mmol/L Carbon Dioxide (22-30) mmol/L Anion Gap mmol/L BUN (9-20) mg/dL Creatinine (0.66-1.25) mg/dL Est GFR (CKD-EPI)AfAm (>60 ml/min/1.73 sqM) Est GFR (CKD-EPI)NonAf (>60 ml/min/1.73 sqM) Glucose (74-99) mg/dL Lactic Ac Sepsis Rflx Y Plasma Lactic Acid Royce (0.7-2.0) mmol/L Calcium (8.4-10.2) mg/dL Total Bilirubin (0.2-1.3) mg/dL AST (17-59) U/L ALT (4-49) U/L Alkaline Phosphatase (38-126) U/L Total Protein (6.3-8.2) g/dL Albumin (3.5-5.0) g/dL Amylase (30-110) U/L Lipase (23-300) U/L - Radiology Data Radiology results: report reviewed, image reviewed Disposition Clinical Impression: Abdominal pain, Nicotine dependence Disposition: HOME SELF-CARE Instructions (If sedation given, give patient instructions): Abdominal Pain (ED) Additional Instructions: Return to the emergency department with any new, worsening, or concerning symptoms. Take the antibiotic as prescribed for 7 days. Alternate with ibuprofen and Tylenol as needed for pain relief. Follow up with your primary care provider in 1-2 days. Prescriptions: Sulfamethox-Tmp 800-160Mg [Bactrim DS 800-160 mg] 1 tab PO Q12HR 7 Days #14 tab Is patient prescribed a controlled substance at d/c from ED?: No Referrals: Nathanael Graf MD [Primary Care Provider] - 1-2 days
[2023-05-21 09:41] LABS: Basophils % (A) 0 %; Eosinophils # (A) 0.1 k/uL (0-0.7); Eosinophils % (A) 1 %; HCT 50.6 % (39.0-53.0); HGB 16.3 gm/dL (13.0-17.5); Lymphocytes # (A) 2.7 k/uL (1.0-4.8); Lymphocytes % (A) 27 %; MCH 29.5 pg (25.0-35.0); MCHC 32.2 g/dL (31.0-37.0); MCV 91.4 fL (80.0-100.0); Mean Platelet Volume 8.3; Monocytes # (A) 0.8 k/uL (0-1.0); Monocytes % (A) 8 %; Neutrophils # (A) 6.2 k/uL (1.3-7.7); Neutrophils % (A) 61 %; Platelet Count 257 k/uL (150-450); RBC 5.54 m/uL (4.30-5.90); RDW 15.2 % (11.5-15.5); WBC 10.1 k/uL (3.8-10.6)
[2023-05-21 10:12] LABS: ALT 15 U/L (4-49); AST 41 U/L (17-59); African American GFR (CKD) 47 (>60 ml/min/1.73 sqM); Albumin 3.7 g/dL (3.5-5.0); Alkaline Phosphatase 109 U/L (38-126); Amylase 38 U/L (30-110); Anion Gap 14 mmol/L; Blood Urea Nitrogen 40 mg/dL (9-20); Calcium 8.4 mg/dL (8.4-10.2); Carbon Dioxide 22 mmol/L (22-30); Chloride 103 mmol/L (98-107); Glucose 169 mg/dL (74-99); Lipase 69 U/L (23-300); Non-African American GFR(CKD) 40 (>60 ml/min/1.73 sqM); Potassium 3.8 mmol/L (3.5-5.1); Sodium 139 mmol/L (137-145); Total Bilirubin 0.9 mg/dL (0.2-1.3)
--- NOTE | 2023-05-21 11:17 | CT ---
EXAMINATION TYPE: CT abdomen pelvis wo con DATE OF EXAM: 05/21/2023 COMPARISON: 05/20/2015 HISTORY: 73-year-old male LLQ Abdominal pain CT DLP: 1629.8 mGycm. Automated exposure control for dose reduction was used. TECHNIQUE: Contiguous axial scanning of the abdomen and pelvis without IV contrast. Coronal and sagit irineo reconstructions performed. FINDINGS: Pacer leads are noted in the right side of the heart. Heart mildly enlarged without pericardial effus ion. Strandy atelectasis or scarring in the lower lungs. No pleural effusion. Low-attenuation hepatic parenchyma. Unchanged calcification inferiorly in the right lobe could reflec t sequela of prior injury or prior granulomatous disease. No abnormal gallbladder distention. A couple gallstones measuring up to 8 mm. No gallbladder hydrops. Adrenal glands, kidneys, spleen, and pancreas within normal limits. Aneurysm of the aorta at the thoracoabdominal junction up to 3.6 cm and ectasia infrarenal abdominal aorta to 2.9 cm. Scattered moderate arthroscopic calcifications throughout. No dilated small bowel, free fluid, or free air. No mesenteric or retroperitoneal lymphadenopathy. Normal appendix. Scattered mild stool. Scattered left-sided clonic diverticulosis. Redundant sigmoid colon. No pericolonic inflammatory change. Moderate to severe bladder wall thickening and perivesicular fat stranding. Prostate gland mildly enl arged at 4.1 cm wide. No abnormal fluid collection in the pelvis or pelvic lymphadenopathy. Bones: Scattered moderate spondylotic change. IMPRESSION: 1. Bladder wall thickening and prominent surrounding fat stranding. Correlate for cystitis. 2. Left-sided colonic diverticulosis. Redundant sigmoid colon. No findings of acute diverticulitis. 3. Hepatic steatosis. 4. Cholelithiasis with a couple stones measuring up to 8 mm. 5. Aneurysmal aorta at the thoracoabdominal junction at 3.6 cm an ectatic infrarenal abdominal aorta up to 2.9 cm. Similar compared to 2014.
[2023-05-21] MEDS ORDERED: cefTRIAXone IN SWFI 1,000 MG/10 ML SYRINGE IVP STA (11:31)
[2023-05-21] MEDS ORDERED: ACET/COD 300 MG/30 MG STARTER PACK 6 TAB BTL PO STA (11:32)
== END 2023-05-21 12:31 | disposition home or self-care (01) ==
LOC: EC 08:39
DX: R10.32 Left lower quadrant pain (principal); F17.200 Nicotine dependence, unspecified, uncomplicated; I11.0 Hypertensive heart disease with heart failure; I50.9 Heart failure, unspecified; I48.91 Unspecified atrial fibrillation; J44.9 Chronic obstructive pulmonary disease, unspecified; E11.9 Type 2 diabetes mellitus without complications; E78.5 Hyperlipidemia, unspecified; Z79.84 Long term (current) use of oral hypoglycemic drugs; Z79.02 Long term (current) use of antithrombotics/antiplatelets; Z79.899 Other long term (current) drug therapy
CPT/HCPCS: 96374; 99284; 36415; 99406; 80053; 82150; 83605; 83690; 85025; 74176; J0696

== ENCOUNTER → 2023-10-25 | Outpatient (CLI) | payer MEDICARE, OTHER ==
--- NOTE | 2023-10-25 10:39 | CTL ---
EXAMINATION TYPE: CT Low Dose Lung DATE OF EXAM: 10/25/2023 9:17 AM CLINICAL INDICATION:Male, 73 years old with history of Z12.2 screening malignant neoplasm; former smo ker, quit 1 year ago, smoked 1ppd x55 years , history of tobacco use. COMPARISON: 10/13/2022. TECHNIQUE: Multiple axial non-contrast scans were obtained from approximately the lung apices through the upper abdomen. Coronal and sagittal reformatted images were obtained. Low dose technique was uti lized. CT DLP: 123 mGycm, Automated exposure control for dose reduction was used. CT Contrast: Contrast used: None Oral contrast used: None FINDINGS: ======== Lack of intravenous contrast and low dose technique limits the evaluation of the vascular and soft ti ssue structures. LUNGS: No evidence of pulmonary fibrosis. No evidence of focal consolidation, pneumothorax or pleural effusion. Nodules: RUL: None. RML: None. RLL: None. ANASTASIA: None. LLL: None. AIRWAY: Patent and unremarkable. HEART: The heart is mildly enlarged for size. No evidence for aneurysm. Cardiac conduction leads term inating in the right ventricle and right atrium. Coronary artery atherosclerosis. MEDIASTINUM: No gross evidence of adenopathy. VASCULATURE: No aortic aneurysm. Ascending thoracic aorta ectasia up to 42 mm. MUSCULOSKELETAL: Mild disc degeneration changes are present throughout the thoracolumbar spine. SOFT TISSUES/LYMPH NODES: Unremarkable. LOWER NECK: No significant findings. UPPER ABDOMEN: No significant findings. IMPRESSION: 1. No clinically significant pulmonary nodules. 2. Ascending thoracic aorta ectasia up to [address] LUNG RAD AND CT CHEST RECOMMENDATION: Lung-Rad 1 Negative: Continue annual screening with LDCT in 12 months. S Modifier (other clinically significant findings): None Recommend smoking cessation (if current smoker), or continuation of smoking cessation (if prior smoke r). Annual screening for lung cancer with low-dose computed tomography is recommended in adults ages 55 to 77 years who have a 30 pack-year smoking history and currently smoke or have quit within the pa st 15 years. Screening should be discontinued once a person has not smoked for 15 years or develops a health problem that substantially limits life expectancy or the ability or willingness to have curat tevin lung surgery. Lung rads 2021 [email or web address]
== END | disposition home or self-care (01) ==
LOC: RADCTMAIN 08:40
PROVIDERS: ATTEND Internal Medicine
DX: Z12.2 Encounter for screening for malignant neoplasm of respiratory organs (principal); Z87.891 Personal history of nicotine dependence
CPT/HCPCS: 71271

== ENCOUNTER → 2024-04-13 | Outpatient (CLI) | payer MEDICARE, OTHER ==
--- NOTE | 2024-04-13 10:04 | XR ---
EXAMINATION TYPE: XR chest 2V DATE OF EXAM: 04/13/2024 9:54 AM CLINICAL INDICATION: Male, 73 years old with history of I50.9 PEE HEART FAILUR; [facility] COMPARISON: Chest radiographs from 01/07/2019 TECHNIQUE: XR chest 2V Frontal view of the chest. FINDINGS: Lungs/Pleura: There is no evidence of pleural effusion, focal consolidation, or pneumothorax. Pulmonary vascularity: Unremarkable. Heart/mediastinum: Cardiomediastinal silhouette is prominent in size. Two lead cardiac conduction dev ice overlying the left hemithorax with lead tips projecting over the right ventricle and right atrium . Musculoskeletal: No acute osseous pathology. IMPRESSION: No acute cardiopulmonary disease/process. [facility], , 04/13/2024 10:01 AM
--- NOTE | 2024-04-13 10:41 | US ---
EXAMINATION TYPE: US abdomen complete DATE OF EXAM: 04/13/2024 COMPARISON: CT 05/21/2024 CLINICAL INDICATION: Male, 73 years old with history of N18.31 STAGE 3A CHRON KIDNEY DISEASE; Hx DM, Fatty liver, gallstones, and infrarenal abdominal aortic aneurysm; Patient denies any signs, symptoms or relevant history TECHNIQUE: Grayscale and color Doppler imaging of the abdomen was performed. FINDINGS: EXAM MEASUREMENTS: Liver Length: 12.2 cm Gallbladder Wall: 0.2 cm CBD: 0.3 cm Spleen: 9.6 cm Right Kidney: 11.9 x 5.9 x 5.3 cm Left Kidney: 11.5 x 5.8 x 4.6 cm ELEVATOR ADJUSTER NOTES: Pancreas: Tail obscured by overlying bowel gas Liver: Increased attenuation, decreased visualization of vessels suggestive of fatty infiltrate Gallbladder: Stone seen, cystic areas within fundal wall, ?air within multiple areas of the wall Evidence for sonographic Johnson's sign: No CBD: wnl Spleen: wnl Right Kidney: wnl Left Kidney: wnl Upper IVC: wnl Abd Aorta: Focal uniform infrarenal dilation up to 2.8 cm similar prior. IMPRESSION: 1. Cystic areas in the gallbladder wall possibly representing adenomyomatosis. Consider evaluation w ith MRI liver mass protocol for further evaluation. 2. Cholelithiasis. 3. Hepatic steatosis. 4. Abdominal aortic dilation as seen on prior exam 05/21/2023 measuring up to 2.8 cm thickness. [facility], , 04/13/2024 10:38 AM
== END | disposition home or self-care (01) ==
LOC: RADUSWWP 08:53
PROVIDERS: ATTEND Internal Medicine
CPT/HCPCS: 71046; 76700

== ENCOUNTER → 2024-04-24 | Outpatient (CLI) | payer MEDICARE, OTHER ==
[2024-04-24 08:45] LABS: African American GFR (CKD) 65 (>60 ml/min/1.73 sqM); Blood Urea Nitrogen 29 mg/dL (9-20); Non-African American GFR(CKD) 57 (>60 ml/min/1.73 sqM)
--- NOTE | 2024-04-24 16:31 | CT ---
EXAMINATION TYPE: CT angio chest DATE OF EXAM: 04/24/2024 9:32 AM COMPARISON: 10/25/2023 CLINICAL INDICATION: Male, 73 years old with history of I71.20 Thoracic aortic aneurysm; thoracic aor tic aneurysm TECHNIQUE/CONTRAST: CTA scan of the thorax is performed with IV Contrast, patient injected with 80 mL of Isovue 370, 3D r econstructed images are created on an independent workstation and reviewed.. CT DLP: 1688.4 mGycm, Automated exposure control for dose reduction was used. FINDINGS: Pulmonary Artery: Lungs/Pleura: No evidence of focal consolidation, pleural effusion or pneumothorax. Airway: Large airways are patent. Heart: The heart is mildly enlarged for size. Atherosclerosis of the arterial vasculature. Cardiac co nduction leads terminating in the right ventricle and right atrium.r Vasculature: No evidence for intramural hematoma on noncontrast imaging. No evidence of intimal flap to suggest dissection. No aneurysm identified. Scattered atherosclerotic disease. Ectatic ascending thoracic aorta measuring up to 4.4 cm. There is no evidence for a filling defect within the pulmonary vasculature to suggest acute pulmonary embolism. The pulmonary artery is of normal size. Mediastinum: No gross evidence of adenopathy. Musculoskeletal: No acute osseous abnormalities Soft Tissues/lymph nodes: Unremarkable. Lower neck: Partially calcified left thyroid nodule measuring up to 19 mm. Upper Abdomen: Multiple ca lcified gallstones in the gallbladder lumen. Calcified granuloma in the right hepatic lobe inferiorly. Simple appearing subcentimeter probable le ft renal cyst. IMPRESSION: 1. Ectatic ascending thoracic aorta measuring up to 4.4 cm. This is not significantly changed from p rior given differences in cardiac activity. 2. No evidence for pulmonary embolus or dissection. Moderate atherosclerosis of the aorta. 3. No evidence for acute thoracic process. Follow up recommendations for incidental pulmonary nodules, if there are any, are per [employer] or [employer]. [email or web address]=us [facility], , 04/24/2024 4:28 PM
== END | disposition home or self-care (01) ==
LOC: RADCTMAIN 08:04
PROVIDERS: ATTEND Internal Medicine Interventional Cardiology
CPT/HCPCS: 36415; 71275; 82565; 84520

== ENCOUNTER → 2024-07-04 | Outpatient (CLI) | payer MEDICARE, OTHER ==
--- NOTE | 2024-07-04 12:51 | XR ---
EXAMINATION TYPE: XR bone survey complete, 17 views DATE OF EXAM: 07/04/2024 COMPARISON: Chest 04/13/2024 CLINICAL INDICATION: Male, 74 years old with history of D45 polycythemia; FINDINGS: Chest: Left anterior chest wall AICD generator with right atrial and right ventricular leads. Heart remains borderline enlarged. Hazy densities relating to body habitus and overlying soft tissue. Cervical spine: Degenerative change C1 dens articulation. Mild degenerative disc disease mid and lower cervical spine . The patient's shoulders obscure the C6-C7 level and below. Calvarium: No discrete lytic lucencies. The mandible appears intact. Patient is edentulous. Humeri: Sclerosis and irregularity at the left greater tuberosity suggesting chronic rotator cuff tendinopath y. No lytic lesion or endosteal scalloping is seen on either side. Thoracic spine: DISH mid and lower thoracic spine. Vertebral body heights are preserved. Mild to moderate degenerativ e disc disease upper to mid thoracic spine. Accentuated mid thoracic kyphosis. Alignment maintained. Lumbar spine: Osteopenia. 5 lumbar type vertebral bodies. Hypertrophic facet arthropathy throughout. Moderate multi level degenerative disc disease, moderate to severe at L5-S1. Degenerative grade 1 anterolisthesis L4 -L5. Vertebral body heights are preserved. Dense atherosclerotic calcifications throughout the abdomi nal aorta. Pelvis: SI joints appear symmetric and intact as does the pubic symphysis. Mild degenerative spurring of the left hip. No discrete lytic lesion is seen. Vascular calcifications. Femurs: No discrete lytic lesion or endosteal scalloping. Vascular calcifications. At least mild degenerative change in both medial compartments of the knee. IMPRESSION: No suspicious lytic lesion is identified. Incidental finding of DISH throughout the mid a nd lower thoracic spine. Moderate degenerative disc disease and hypertrophic facet arthropathy throug hout the lumbar spine. [facility], , 07/04/2024 12:49 PM
== END | disposition home or self-care (01) ==
LOC: RADXRMAIN 10:09
PROVIDERS: ATTEND Internal Medicine Hematology & Oncology
DX: D75.1 Secondary polycythemia (principal); M47.816 Spondylosis without myelopathy or radiculopathy, lumbar region; M51.369 Other intervertebral disc degeneration, lumbar region without mention of lumbar back pain or lower extremity pain
CPT/HCPCS: 77075